=== PATIENT | male | born 1945 | race Caucasian/White ===

== ENCOUNTER → 2017-11-04 12:53 | Outpatient (CLI) | payer OTHER, SELFPAY ==
--- NOTE | 2017-11-05 08:23 | PFT ---
INTRODUCTION: The patient is a 72-year-old male currently under the care of Jose Alford NP that presents for pulmonary function testing secondary to a diagnosis of long-term amiodarone use. Respiratory therapy reports good patient effort and reports no other concerns. Bronchodilators were used during testing. INTERPRETATION: Forced expiration spirometry demonstrates the presence of a moderate large airways obstructive ventilatory defect. There was no significant response to aerosolized bronchodilators, based upon strict ATS criteria. Spirograms are of good quality and do not plateau indicating slow emptying of the lungs. The respiratory flow volume loop reveals decreased expiratory flow rates at all lung volumes consistent with airways obstruction. Body plethysmography was performed and reveals lung volumes to be within normal limits. Diffusing capacity by single breath CO is at the lower limits of normal at 77% of predicted. IMPRESSION: These pulmonary function studies demonstrate the presence of an irreversible moderate large airways obstructive ventilatory defect. Diffusing capacity is currently at the lower limits of normal. There are no previous pulmonary function studies available for comparison.
== END ==
PROVIDERS: Visit Provider Nurse Practitioner Family
DX: Z79.899 Other long term (current) drug therapy (principal); E78.2 Mixed hyperlipidemia; I48.1 Persistent atrial fibrillation; I10 Essential (primary) hypertension; E66.9 Obesity, unspecified
CPT/HCPCS: 94060; 94726; 94729

== ENCOUNTER → 2018-01-21 11:09 | Outpatient (CLI) | payer OTHER, SELFPAY ==
[2018-01-21 12:51] LABS: AST(SGOT) 23 U/L (15-37); Alanine Aminotransfer ALT/SGPT 21 U/L (16-61); Albumin, Serum 3.4 g/dL (3.2-5.0); Alkaline Phosphatase 84 U/L (45-117); Bilirubin, Direct 0.13 mg/dL (0.00-0.30); Cholesterol 184 mg/dL (200); Globulin 4.4 g/dL (2.2-4.2); High Density Lipoprotein 48 mg/dL; Protein, Total 7.8 g/dL (6.4-8.2); T4 Total, Thyroxin 8.8 ug/dL (4.5-12.1); Thyroid Stim Hormone (TSH) 4.75 uIU/mL (0.358-3.74); Triglycerides 65 mg/dL; Very Low Density Lipoprotein 13 mg/dL (5-40)
== END ==
PROVIDERS: Visit Provider Nurse Practitioner Family
DX: Z79.899 Other long term (current) drug therapy (principal); E78.2 Mixed hyperlipidemia; I48.1 Persistent atrial fibrillation; I10 Essential (primary) hypertension; E66.9 Obesity, unspecified
CPT/HCPCS: 36415; 80061; 80076; 84436; 84443

== ENCOUNTER → 2018-12-06 13:57 | Outpatient (CLI) | payer OTHER, SELFPAY ==
[2018-12-06 13:03] VITALS: BMI 32.0
--- NOTE | 2018-12-06 14:04 | RAD_ITS ---
STUDY: X-RAY CHEST REASON FOR EXAM: Male, 73 years old. Shortness of breath, dyspnea. History of atrial fibrillation. TECHNIQUE: PA and lateral views of the chest. COMPARISON: PA and lateral chest x-ray March 30, 2017. FINDINGS: The small bilateral pleural effusions and probable concomitant minor subsegmental atelectasis in the lung bases on prior study have cleared. A pair of 1 cm nodular densities in the inferolateral left base on the frontal view are more conspicuous today. There is question of additional subcentimeter nodular densities in the inferolateral right base, projecting just above the anterior right seventh and eighth ribs on the frontal image. The heart size is upper normal. Normal mediastinum and basilio. Normal visualized pulmonary arteries. Normal visualized aortic arch and descending thoracic aorta. Normal visualized thoracic spine. There is healed fracture deformity of the lateral left fifth rib. A small to moderate size hiatal hernia within a gas fluid level is again seen in the retrocardiac soft tissues. RAD/Chest PA and Lateral IMPRESSION: 1. Interval clearing of bibasilar subsegmental airspace disease and very small pleural effusion since previous exam. 2. Two 1 cm nodular densities in the inferolateral left base are now more conspicuous, and there is question of 2 subcentimeter nodular densities in the inferolateral right base. One might consider further characterization with CT. 3. Stable retrocardiac hiatal hernia. Electronically Signed: Julius Crowder MD at 14:49 EST , Service support ,
[2018-12-06 16:42] LABS: AST(SGOT) 28 U/L (15-37); Alanine Aminotransfer ALT/SGPT 19 U/L (16-61); Albumin, Serum 3.4 g/dL (3.2-5.0); Alkaline Phosphatase 73 U/L (45-117); Anion Gap 9 (5-15); BUN 20 mg/dL (7-18); BUN/Creat Ratio 15.6 RATIO (10-20); Bilirubin, Direct 0.13 mg/dL (0.00-0.30); Calcium,Total 8.6 mg/dL (8.5-10.1); Chloride 104 mmol/L (98-107); Cholesterol 174 mg/dL (200); Creatinine, Serum 1.28 mg/dL (0.70-1.30); EST Glomerular Filtration Rate 58 mL/min (>60); Est Glom Filt Rate - Afr Amer 71 mL/min (>60); Globulin 4.3 g/dL (2.2-4.2); Glucose 96 mg/dL (74-106); High Density Lipoprotein 47 mg/dL; Potassium 4.7 mmol/L (3.5-5.1); Protein, Total 7.7 g/dL (6.4-8.2); Sodium Level 140 mmol/L (136-145); Triglycerides 117 mg/dL; Very Low Density Lipoprotein 23 mg/dL (5-40)
== END ==
PROVIDERS: Referring Provider Internal Medicine Cardiovascular Disease; Visit Provider Internal Medicine Cardiovascular Disease
DX: I48.1 Persistent atrial fibrillation (principal); E78.2 Mixed hyperlipidemia
CPT/HCPCS: 36415; 71046; 80048; 80061; 80076

== ENCOUNTER 2018-12-15 11:18 | Day surgery (SDC) | payer OTHER, SELFPAY ==
[2018-12-06 13:03] VITALS: BMI 32.0
[2018-12-15 12:47] LABS: Cholesterol 177 mg/dL (200); High Density Lipoprotein 48 mg/dL; Triglycerides 55 mg/dL; Very Low Density Lipoprotein 11 mg/dL (5-40)
--- NOTE | 2018-12-15 13:58 | PRO.PCM_ITS ---
Problem List (1) Pre-operative cardiovascular examination Status: Acute (2) History of cardioversion Status: Chronic Comment: 03/24/17 unsuccessful (3) History of left heart catheterization Status: Chronic Comment: Normal Coronary Arteries per cath, [facility] per Dr. Smith (4) Persistent atrial fibrillation Status: Chronic (5) Secondary pulmonary arterial hypertension Status: Chronic Comment: RVSP 44 mmhg per echo 02/23/2017 Procedure Report Date of Procedure: 12/15/18 DC cardioversion: Patient was brought to the [facility] holding area in the fasting state. The risks/benefits of the procedure were thoroughly explained to the patient and in formed consent was obtained. The patient been anticoagulated on Xarelto therapy for the past several weeks. Patient has an upcoming knee surgery and the goal was to get the patient back into normal rhythm so as to avoid prolonged anticoagulation prior to his knee surgery. The deferred later pads were placed in AP position. With the assistance of Dr. Leonidas Matos the patient was given 40 mg of IV propofol. Once adequate sedation was obtained the patient received a single 200 J biphasic synchronized shock which converted him from atrial fibrillation with slow ventricular response to sinus bradycardia. His sinus bradycardia remained durable, he spontaneously awoke, moves all 4 extremities and tolerated the procedure well. Conclusions: Successful amiodarone and beta-rodri assisted DC cardioversion with a single 200 J biphasic synchronized shock. The patient will continue amiodarone and beta-rodri going forward to preserve AV synchrony, and he may hold his anticoagulation per the surgeon's instructions. Would recommend restarting his anticoagulation once it is surgically permissible. Patient tolerated procedure well. No complications. Many thanks to Dr. Leonidas Matos.
--- NOTE | 2018-12-15 14:39 | PCM.OP.PRO ---
Procedure Report Date of Procedure: 12/15/18 CONSCIOUS SEDATION REPORT DATE OF SERVICE: December 15, 2018 BRIEF HISTORY OF PRESENT ILLNESS: The patient is a 73-year-old male, with a history as outlined below, who presented to [facility] for an elective outpatient cardioversion due to underlying atrial fibrillation. The patient's last surface echocardiogram revealed an ejection fraction of approximately 55%. He has no known history of obstructive sleep apnea, COPD or asthma. He did previously undergo a cardioversion in 2017. He denies ever having experienced any adverse reactions to anesthesia. PHYSICAL EXAMINATION: VITAL SIGNS: Reviewed and were acceptable. GENERAL: The patient is an obese male, in no apparent distress, speaking in full sentences. HEENT: Normocephalic, atraumatic. Mucous membranes are moist and pink. Good mouth opening noted. Trachea is midline. CHEST: S1, S2 irregularly irregular. No murmurs, rubs or gallops were noted. LUNGS: Clear to auscultation bilaterally without appreciable wheezes, rales or rhonchi. ABDOMEN: Soft, nontender, nondistended. Positive bowel sounds. EXTREMITIES: There is no clubbing, cyanosis or edema. ASA Class: II DESCRIPTION OF PROCEDURE: After confirmation of informed consent, the patient's anesthesia plan was reviewed in detail. Propofol was chosen. Risks and benefits were reviewed and the patient agreed to proceed. At 1333, the patient was given 40 mg of propofol. The patient achieved an appropriate level of sedation and was given a 200 joule synchronized cardioversion by Dr. Smith at the bedside. This was successful in achieving normal sinus rhythm. The patient was monitored until 1341, at which time he reached his baseline mental status and function. The patient tolerated the procedure well. COMPLICATIONS: None ESTIMATED BLOOD LOSS: None RECOMMENDATIONS: Okay to recover in usual fashion. Code Visit 9xxxx: Other Procedure See Report - [id number]
== END 2018-12-15 14:47 | disposition home or self-care (01) ==
PROVIDERS: Referring Provider Internal Medicine Cardiovascular Disease; Visit Provider Internal Medicine Cardiovascular Disease
DX: I48.1 Persistent atrial fibrillation (principal); E78.2 Mixed hyperlipidemia; I10 Essential (primary) hypertension; I36.1 Nonrheumatic tricuspid (valve) insufficiency; I34.0 Nonrheumatic mitral (valve) insufficiency; I27.21 Secondary pulmonary arterial hypertension; E66.9 Obesity, unspecified; Z68.32 Body mass index [BMI] 32.0-32.9, adult; Z79.82 Long term (current) use of aspirin; Z79.899 Other long term (current) drug therapy
CPT/HCPCS: 36415; 80061; 92960; 93005; J7040

== ENCOUNTER → 2018-12-21 14:12 | Outpatient (CLI) | payer OTHER, SELFPAY ==
[2018-12-06 13:03] VITALS: BMI 32.0
--- NOTE | 2018-12-21 14:15 | CT_ITS ---
STUDY: CT CHEST WITH CONTRAST REASON FOR EXAM: Male, 73 years old. Lung nodule seen on pre-op RADIATION DOSAGE (If Supplied By Facility): CTDIvol = ( 15.97 ) mGy, DLP = ( 677.72 ) mGycm TECHNIQUE: Transaxial imaging was performed following intravenous administration of Isovue 370 100mL IV. Individualized dose optimization techniques were used for this CT. COMPARISON: Chest x-ray 12/06/2018. FINDINGS: There is hyperinflation of the lungs consistent with chronic obstructive lung disease (COPD). There is confirmation of several small nodules. On the right, an oblong noncalcified 1 cm nodule is seen on axial image 65, related to the minor fissure. On the left, there is a 4 mm nodule in the lateral aspect of the lingula on image 76. There is an 8 mm nodule in the periphery of the lingula on axial image 79. There is a partially calcified 9 mm nodule in the lateral basal segment of the left lower lobe on axial image 84. There is a 3 mm pleural-based nodule in the lingula on axial image 85. There is a 5 mm nodule related to the major fissure in the left lower lobe on image 87. Streaky densities consistent with scarring and/or subsegmental atelectasis is seen in the posterior aspects of both lower lobes, right worse than left. Bilateral small pleural effusions are seen. Heart size normal. Pulmonary arteries and aorta are unremarkable for age. No gross mediastinal mass or adenopathy. Moderate hilar hernia. Limited views through the upper abdomen show no gross acute abnormalities. Skeletal structures show no significant abnormalities. CT/Chest WITH Contrast IMPRESSION: There is confirmation of several bibasilar pulmonary nodules especially on the left, most of which are not calcified. These are indeterminate and recommend follow-up in 6 months. Mild fibrotic changes or subsegmental atelectasis with small effusion in both lung bases. Probable COPD. Electronically Signed: Ham Hernandez MD at 11:23 EDT , Service support ,
== END ==
PROVIDERS: Referring Provider Internal Medicine Cardiovascular Disease; Visit Provider Internal Medicine Cardiovascular Disease
DX: R91.1 Solitary pulmonary nodule (principal); R91.8 Other nonspecific abnormal finding of lung field
CPT/HCPCS: 71260; Q9967

== ENCOUNTER → 2019-08-05 12:36 | Outpatient (CLI) | payer MEDICARE, OTHER, SELFPAY ==
[2019-07-18 13:01] VITALS: BMI 30.7
--- NOTE | 2019-08-05 12:39 | ECHOD_ITS ---
Reason For Study: Afib/Flutter Procedure This was a 2D Doppler, Color Flow transthoracic echocardiogram. Exam performed in department. Left Ventricle Normal size and thickness. The estimated ejection fraction is 65 %. Stage 2 diastolic dysfunction. No regional wall motion abnormalities noted. Right Ventricle Mildly dilated right ventricle. Normal systolic function. Atria The left atrium is moderately enlarged. The right atrium is moderately enlarged. Normal atrial septum. Mitral Valve The mitral valve is structurally normal. No prolapse or stenosis seen. Tricuspid Valve Normal tricuspid valve. Trivial tricuspid valve insufficiency. Right ventricular systolic pressure estimated to be 31 mmHg. Aortic Valve Trisinus/trileaflet aortic valve. Mild focal aortic valve thickening. There is no aortic stenosis. Trivial aortic valve insufficiency. Pulmonic Valve Normal pulmonic valve. Great Vessels Normal aortic root. Normal arch. Normal inferior vena cava. Inferior vena cava collapse with sniff. Pericardium/Pleural No pericardial effusion. MMode/2D Measurements & Calculations LVIDd: 5.2 cm IVSd: 1.2 cm Ao root diam: 3.7 cm LVIDs: 3.0 cm LVPWd: 1.2 cm RVDd: 4.3 cm FS: 42.6 % LAV(MOD-bp): 96.5 ml LA A4 area: 28.4 cm2 RA A4 area: 23.8 cm2 LAV(MOD-bp) Indexed: 47.7 ml/m2 LAV(MOD-sp2): 90.4 ml LAV(MOD-sp4): 99.5 ml Time Measurements MV dec time: 0.21 sec Doppler Measurements & Calculations MV E max raul: 77.7 cm/sec Lat Peak E' Raul: 7.9 cm/sec Med Peak E' Raul: 6.8 cm/sec MV A max raul: 57.7 cm/sec E/E' lat: 9.9 E/E' med: 11.4 MV E/A: 1.3 MV V2 max: 84.7 cm/sec MV P1/2t max raul: 86.7 cm/sec Ao V2 max: 141.6 cm/sec MV max P.9 mmHg MV P1/2t: 160.7 msec Ao max P.0 mmHg MV V2 mean: 45.2 cm/sec MV dec slope: 158.0 cm/sec2 Ao V2 mean: 86.7 cm/sec MV mean P.93 mmHg MVA(P1/2t): 1.4 cm2 Ao mean P.5 mmHg MV V2 VTI: 40.0 cm Ao V2 VTI: 31.9 cm AI max raul: 431.8 cm/sec LV V1 max: 122.1 cm/sec MR max raul: 579.8 cm/sec AI max P.6 mmHg LV V1 max P.0 mmHg MR max P.5 mmHg LV V1 mean P.6 mmHg MR mean raul: 432.8 cm/sec AI dec slope: 110.0 cm/sec2 LV V1 mean: 73.1 cm/sec MR mean P.0 mmHg AI P1/2t: 1150 msec LV V1 VTI: 29.2 cm MR VTI: 229.9 cm PA V2 max: 102.1 cm/sec TR max raul: 230.0 cm/sec TR max P.2 mmHg Interpretation Summary The estimated ejection fraction is 65 %. Stage 2 diastolic dysfunction. Mildly dilated right ventricle. The left atrium is moderately enlarged. The right atrium is moderately enlarged. Trivial tricuspid valve insufficiency. Right ventricular systolic pressure estimated to be 31 mmHg. Trivial aortic valve insufficiency. Compared to echo report dated 02/23/2017, LV Function has improved from 55% to 65%, and RVSP has decreased from 44 to 31 mm Hg. Pt now appears to be in NSR. Ordering Physician: Ramone Smith Referring Physician: Nils Wick Performed By: Rikki Martinez RCS
== END ==
PROVIDERS: Referring Provider Internal Medicine Cardiovascular Disease; Visit Provider Internal Medicine Cardiovascular Disease
DX: I36.1 Nonrheumatic tricuspid (valve) insufficiency (principal)
CPT/HCPCS: 93306

== ENCOUNTER → 2020-01-26 09:32 | Outpatient (CLI) | payer MEDICARE, OTHER, SELFPAY ==
[2020-01-25 09:16] VITALS: BMI 29.5
[2020-01-26 10:54] LABS: AST(SGOT) 20 U/L (15-37); Alanine Aminotransfer ALT/SGPT 19 U/L (16-61); Albumin, Serum 3.3 g/dL (3.2-5.0); Alkaline Phosphatase 83 U/L (45-117); Bilirubin, Direct 0.17 mg/dL (0.00-0.30); Cholesterol 198 mg/dL (200); Globulin 4.5 g/dL (2.2-4.2); High Density Lipoprotein 57 mg/dL; Protein, Total 7.8 g/dL (6.4-8.2); T4 Total, Thyroxin 10.2 ug/dL (4.5-12.1); Thyroid Stim Hormone (TSH) 4.89 uIU/mL (0.358-3.74); Triglycerides 74 mg/dL; Very Low Density Lipoprotein 15 mg/dL (5-40)
== END ==
PROVIDERS: Referring Provider Internal Medicine Cardiovascular Disease; Visit Provider Internal Medicine Cardiovascular Disease
DX: E78.5 Hyperlipidemia, unspecified (principal); Z79.899 Other long term (current) drug therapy
CPT/HCPCS: 36415; 80061; 80076; 84436; 84443

== ENCOUNTER → 2020-08-09 07:53 | Outpatient (CLI) | payer MEDICARE, OTHER, SELFPAY ==
[2020-08-07 13:00] VITALS: BMI 30.4
[2020-08-09 08:51] LABS: AST(SGOT) 21 U/L (15-37); Alanine Aminotransfer ALT/SGPT 18 U/L (16-61); Albumin, Serum 3.2 g/dL (3.2-5.0); Alkaline Phosphatase 103 U/L (45-117); Bilirubin, Direct 0.15 mg/dL (0.00-0.30); Cholesterol 188 mg/dL (200); Globulin 4.8 g/dL (2.2-4.2); High Density Lipoprotein 56 mg/dL; T4 Total, Thyroxin 9.2 ug/dL (4.5-12.1); Thyroid Stim Hormone (TSH) 5.63 uIU/mL (0.358-3.74); Triglycerides 86 mg/dL; Very Low Density Lipoprotein 17 mg/dL (5-40)
--- NOTE | 2020-08-10 11:31 | PFT ---
INTRODUCTION: The patient is a 75-year-old male that presents for pulmonary function studies secondary to a diagnosis of high risk medication use. Respiratory therapy reports good patient effort. Bronchodilators were used during testing. INTERPRETATION: Forced expiration spirometry demonstrates the presence of a mild large airways obstructive ventilatory defect. There was no significant response to aerosolized bronchodilators. Spirograms are of good quality and do not plateau indicating slow emptying of the lungs. Body plethysmography was performed and reveals lung volumes to be within normal limits. Diffusing capacity by single breath CO is reduced at 62% of predicted. IMPRESSION: Irreversible mild large airways obstructive ventilatory defect with preserved lung volumes and symmetric reduction in diffusing capacity.
== END ==
PROVIDERS: Internal Medicine Cardiovascular Disease; Referring Provider Specialist; Visit Provider Specialist
DX: E78.00 Pure hypercholesterolemia, unspecified (principal); E78.5 Hyperlipidemia, unspecified; E03.9 Hypothyroidism, unspecified; Z79.899 Other long term (current) drug therapy
CPT/HCPCS: 80061; 80076; 84436; 84443; 94060; 94726; 94729

== ENCOUNTER 2020-08-22 09:39 | Observation (INO) | payer MEDICARE, OTHER, SELFPAY ==
[2020-01-25 09:16] VITALS: BMI 29.5
--- NOTE | 2020-08-01 21:47 | HP.PCM_ITS ---
History and Physical History and Physical [facility] Patient Name: Rehan Monae : 1945 From: RAFAEL VITAL PA-C DATE OF SURGERY: 08/22/2020 SCHEDULED PROCEDURE: left total hip arthroplasty HISTORY OF PRESENT ILLNESS: Preoperative history and physical exam was performed on August 01, 2020. This is a 75-year-old male who is been having ongoing pain in his left hip since for several months. Patient states his pain can reach 5/10 with activities. His pain is dull, sharp, stabbing. Pain is increased with going up and down stairs, sitting. Pain does waken him at night occasionally. Pain is over the lateral hip and left groin. Patient has difficulty with activities of daily living including golf, housework, shopping. He has difficult time putting on socks and getting dressed. Patient has tried rest, elevation with minimal relief. He has tried home exercises with minimal relief. He denies previous surgery on the left hip. Currently denies chest pain, shortness of breath, fevers chills, or recent infections. Patient has medical history pertinent for atrial fibrillation in which he he has had previous cardioversions. Patient had previous cardioversion on December 15, 2018. Patient currently takes Rivaroxaban. He is followed by retina subspecialist at [facility]. Clearance sent to Dr. Vasquez. After failing conservative measures and discussing treatment options Dr. Medardo Banda, the patient does wish to proceed with a left total hip arthroplasty. We will follow cardiology's plan for discontinuing anticoagulation prior to surgery. REVIEW OF SYSTEMS: ROS: Const: Denies change in appetite, fever and weight change. CV: Denies chest pain, heart murmur and irregular heartbeat. Resp: Denies cough, pneumonia, shortness of breath, tuberculosis and wheezing. GI: Denies constipation, diarrhea, heartburn, nausea, rectal itching, bloody stools and vomiting. : Denies incontinence. Musculo: Reports leg swelling, but denies pain, trouble walking and weakness. Skin: Denies Raynaud's, history of shingles and tattoo. Neuro: Denies ambulatory dysfunction, dizziness, numbness/tingling and tremor. Psych: Denies anxiety, insomnia and stress. Rolando/Lymph: Reports bleeding/bruising tendency, but denies anemia and past transfusion. Reviewed, no changes. PAST MEDICAL HISTORY: Advance Care Plan: Other Directive, living will Effective Date: 07/12/2020 PMH: Medical Problems: Arthritis, A-fib Accidents: None Surgical Hx: Knee Replacement RT - (01/04/2019) SAW Anesthesia Complications: None Assistive Devices: Glasses, Dentures Reviewed, no changes. SOCIAL HISTORY: SH: Marital: .Occupation: Retired.Work Status: Retired.Hand Dominance: Right- handed. Personal Habits: Cigarette Use: Never Smoked Cigarettes.Smokeless Tobacco: Never Used Smokeless Tobacco.E-Cigarette Use: Never used.Alcohol: Denies use.Drug Use: Denies Use.Enjoy Exercising: Never Exercises. Reviewed, no changes. VITALS: Ht: 67 Wt: 202lb Wt k.627 BMI: 31.6 BP: 122/62 Pulse: 68 Resp: 16 T: 95.2 T: 35.1C ALLERGIES: No Known Drug Allergy MEDICATIONS: Xarelto 20 mg 1po qday, Amiodarone HCL 200 mg 1 tab PO daily, Losartan Potassium 25 mg 1 by mouth every day PRE-OP EXAM: General appearance:NORMAL Other: Eyes: Conjunctivae and lids: NORMAL Pupils: ERR Ears, Nose, Mouth, and Throat: NORMAL Other: Inspection of lips, teeth and gums: NORMAL Other: Neck: Examination of neck: no masses noted. Respiratory: Assessment of respiratory effort: NORMAL Other: Auscultation of lungs: clear to auscultation no wheezes, rhonchi or rales. Cardiovascular: Auscultation of heart: regular rate and rhythm, no murmurs, gallops or rubs. Exam of carotid arteries: NORMAL Other: Gastrointestinal: Exam of abdomen: soft, nontender, nondistended bowel sounds present. PHYSICAL EXAMINATION: Patient does walk with an antalgic gait. Left hip has tenderness to palpation over the lateral hip at the greater trochanteric region. Range of motion left hip: 80 flexion, internal rotation neutral, external rotation 10. Pain is increased with range of motion left hip. Patient has 2 mm left leg shorter than the right. Patient currently neurovascularly intact. Sensation intact to light touch. IMAGING STUDIES: Previous x-rays a left hip reveal narrowing of the joint space, subchondral sclerosis, osteophyte formation consistent with severe stage IV osteoarthritis. There is a short varus neck. IMPRESSION: 1. Left hip osteoarthritis 2. History of atrial fibrillation: Currently on Rivaroxaban PLAN: Dr. Medardo Banda did discuss and review with the patient all treatment options including surgical versus nonsurgical options. Patient does wish to proceed with the above-stated procedure. Potential risks, benefits, and complications of the procedure were discussed in detail including but not limited to , infection, nerve and blood vessel damage, persistent pain, numbness, tingling, paresthesias, blood clot, pulmonary embolism, and requirement for possible further surgery. The patient expressed full understanding and has no further questions for the doctor. Patient does agree to proceed with the above-stated procedure and has signed the surgery consent form. We discussed the current risks associated with COVID 19. This does include the risk of exposure while in the hospital. Patient was reassured local hospitals have low infection rates and are taking all necessary precautions to avoid exposure to patients. In addition, we discussed strategies that can be used to help limit exposure including those that limit the patient's time in the hospital. Also using strategies to limit the patient's need for continued inpatient services after being discharged from the hospital. Patient was notified that we will need to comply with any screening or testing the hospital wishes to perform or that surgery may be delayed for any positive results. This dictation was created using voice recognition software. Phonetic and/or grammatical errors may exist. ___ I have re-examined the patient. There are no clinical changes since date of exam. ___ See progress notes for changes. ___ Dictated on admission Date: Time: Signature:
[2020-08-07 13:00] VITALS: BMI 30.4
[2020-08-09 08:19] LABS: Basophil# 0.03 X10^3/uL; Basophil% 0.5 % (0-1); Hematocrit 37.5 % (40-54); Hemoglobin 11.8 g/dL (13.0-16.5); Mean Corp Hgb Conc 31.5 g/dL (32-36); Mean Corpuscular Hgb 30.7 pg (27.0-32.0); Mean Corpuscular Volume 97.7 fL (80-94); Mean Platelet Vol. 9.9 fl (6.2-12.0); Monocyte# 0.64 X10^3/uL; Monocyte% 9.6 % (0-10); NRBC Flagged by Analyzer 0 % (0-5); Neutrophil # 4.95 X10^3/uL (2.7-7.7); Neutrophil % 74.3 % (47-70); Platelet Count 209 K/mm3 (150-450); RBC Distribution Width CV 13.1 % (11.6-14.6); RBC Distribution Width SD 47.4 fl (35.1-43.9); Red Blood Count 3.84 M/mm3 (4.6-6.2); White Blood Count 6.7 K/mm3 (4.4-11.0)
[2020-08-09 08:36] LABS: Anion Gap 4 (5-15); BUN 26 mg/dL (7-18); BUN/Creat Ratio 18.1 RATIO (10-20); Calcium,Total 8.6 mg/dL (8.5-10.1); Chloride 108 mmol/L (98-107); Creatinine, Serum 1.44 mg/dL (0.70-1.30); EST Glomerular Filtration Rate 51 mL/min (>60); Est Glom Filt Rate - Afr Amer 61 mL/min (>60); Glucose 91 mg/dL (74-106); Potassium 4.3 mmol/L (3.5-5.1); Sodium Level 140 mmol/L (136-145)
[2020-08-09 08:37] LABS: Magnesium 2.3 mg/dL (1.6-2.6)
--- NOTE | 2020-08-21 08:12 | EKG12_ITS ---
Test Reason : PRE OP Blood Pressure : / mmHG Vent. Rate : 055 BPM Atrial Rate : 055 BPM P-R Int : 198 ms QRS Dur : 090 ms QT Int : 434 ms P-R-T Axes : 048 028 018 degrees QTc Int : 415 ms Sinus bradycardia Otherwise normal ECG Confirmed by STEW GARCIA, JESSICA ([id number]), greeting card editor ILAN THAKUR ([id number]) on 08/22/2020 1:50:04 PM Referred By: Medardo Banda Confirmed By:JESSICA MATHIAS MD
[2020-08-22] VITALS (10 sets, daily range): BP systolic 116–151; BP diastolic 60–74; PULSE 50–65; RESP 16–18; TEMP 36.2–37.1; O2SAT 93–97; BMI 30.9; BMI 31.7
[2020-08-22] MEDS: Scopolamine 1mg/72hr Patch 1 PATCH TD (07:15)
[2020-08-22] MEDS: Acetaminophen 500 MG Tablet 1000 MG PO ×3 (07:20→21:17)
[2020-08-22] MEDS: Gabapentin 600 MG Tablet PO (07:21)
[2020-08-22] MEDS: Lactated Ringers 1,000 ML 999 ML IV ×2 (07:21→09:46)
[2020-08-22 07:45] LABS: Bedside Glucose 90 mg/dL (70-110)
[2020-08-22] MEDS: Cefazolin 2 GM in 0.9% Normal Saline 100 ML IV (07:51)
--- NOTE | 2020-08-22 08:30 | RAD_ITS ---
STUDY: X-RAY - PELVIS AND LEFT HIP REASON FOR EXAM: Left hip arthroplasty. TECHNIQUE: 4 intraoperative images of the pelvis and hip. COMPARISON: None. FINDINGS: There is a left hip arthroplasty without evidence of complication. Electronically Signed: Ata Bocanegra MD at 11:09 EST Tel , Service support , RAD/Hip 1 view with Pelvis
--- NOTE | 2020-08-22 09:11 | OP.PCM_ITS ---
Report of Operation Date of Procedure: 08/22/20 Pre-Operative Diagnosis: Left hip primary osteoarthritis Post-Operative Diagnosis: Left hip primary osteoarthritis Surgery/Procedure Performed:: Left minimally invasive direct anterior total replacement Description of Surgical Findings:: Stable hip with equal leg lengths trim stencil maker: Bro Kaur Type of Anesthesia:: Spinal Anesthesiologist: Stan Gonzalez Special Medications: 2 g Ancef, 1 g TXA at incision, 1 g TXA closure, 10 mg Decadron, joint cocktail (5 mg Duramorph, 30 mL of 0.5% Ropivicaine, 1000 units of epinephrine, 30 mg of Toradol) Specimen's removed: Bony cuts Estimated Blood Loss (mL): 150 Fluids Replaced: 1000 mL crystalloid Description of Procedure: Components used: 1. Accolade 2 Saumya femoral stem size 5 127? 2. Saumya trident 2 acetabular shell size 56 mm 3. Saumya X3 polyethylene F 4. Saumya Biolox delta 36mm, -5mm femoral head Brief history operative indications: 75 yo M who failed conservative measures for their hip osteoarthritis. X-rays were consistent with osteoarthritis including joint space narrowing, osteophyte formation and subchondral cysts. Total hip replacement was discussed with the patient with risks and benefits including but not limited to blood loss, DVTs, PEs, neurovascular damage, dislocation, general risks of anesthesia including loss of life. Patient demonstrated an understanding medical clearance is obtained the patient was consented for surgery. Procedure: On the date of procedure the patient's L hip was marked in the preoperative area. Patient was then taken back to the operating room where anesthesia assumed control of the C-spine and airway and administered anesthetic. Patient was transferred to the operating table and placed in the supine position. The hips were placed at the break of the bed and a sacral bump was placed. The L lower extremity was then prepped out in a sterile fashion using chlorhexidine while the surgeon scrubbed. The PA was vital in the positioning of the patient. Upon reentering the room the L lower extremity was draped in the standard orthopedic fashion and the incision was marked. A timeout was called and everyone agreed upon the side, the site, the procedure be performed, antibody given, and patient's identity. At this time incision was made through skin, subcutaneous tissue, and fat down to fascia. The fascia was then incised and the TFL was retracted laterally. A retractor was placed on the lateral border of the femoral neck. Attention was directed to the inferior portion of the approach and all crossing vessels were identified and appropriately coagulated. A retractor was then placed on the medial portion of the femoral neck. The anterior capsule was then cleared of all soft tissue and then H shaped capsulotomy was made. The retractors were then placed inside the capsule. The femoral neck was identified and a cleanup cut was made. At this time a power corkscrew was used to remove the femoral head. Attention was then turned toward the acetabulum where the soft tissues were appropriately retracted and the acetabulum was sequentially reamed to 56 mm. A 56 mm cup was then selected and impacted into place. Acetabular liner was impacted into place and locking mechanism was verified. The position of the acetabular cup was then verified under live fluoroscopy. Attention was then turned to the femur. Soft tissue releases on the medial and lateral femoral neck were appropriately done, the leg was externally rotated and lateralized. A Stiles retractor was placed medially and proximally to the greater trochanter this allowed appropriate visualization and exposure of the femoral canal. Rongeour was then used to remove excess lateral bone. A canal finder and entry broach were used to open the proximal canal. Once we verified we were down the femoral canal we subsequently broached up to a size 5 femur. The appropriate neck was placed in the previously selected head was trialed with a -5 mm neck. Traction was pulled and the hip was reduced with internal rotation. Once it was appropriately reduced and stability was checked. There was minimal shuck, equal leg lengths and appropriate stability with hyperextension and external rotation as well as with 90? flexion and internal rotation. Fluoroscopy was then also used to verify the position of the components and leg lengths using the contralateral side for comparison. The trial components were then dislocated the proximal femur was again exposed and the components were removed from the wound. The final components were verified and opened. The wound was copiously irrigated out with normal saline. The acetabulum was checked for any residual debris. The final components were placed and impacted. Traction and internal rotation were again used to reduce the hip. After adequate reduction the hip remained stable with appropriate leg lengths. The final components were once again checked with live fluoroscopy and were found to be satisfactory. The wound was then copiously irrigated with normal saline once more, and hemostasis was obtained. Closure was then done using #1 Vicryl runner to close the fascia. A 2-0 vicryl interuppted sutures were used to close the subcutaneous skin. A 3-0 Monocryl and Steri-Strips were used for final skin closure. A Silverlon dressing was placed. Patient was awakened by anesthesia and transferred to the [facility]. Pat ient was then transferred to the PACU for recovery. Postoperative plan: Patient will get 24 hours postop antibiotics. Patient will get in-house physical therapy and will be weight-bear as tolerated. Patient will follow up in office in 2 weeks for a wound check and x-rays. Aspirin 81 mg twice daily. - Complications No intraoperative complications - Admit VTE Documentation VTE Present on Admission: No VTE Mechan Device Prophylaxis: SCD's, Thigh High VINI Hose VTE Pharm Prophylaxis ordered?: Yes
--- NOTE | 2020-08-22 09:54 | RAD_ITS ---
STUDY: X-RAY - PELVIS AND LEFT HIP REASON FOR EXAM: Postop left hip arthroplasty. TECHNIQUE: 2 views of the pelvis and hip. COMPARISON: None. FINDINGS: There is postoperative gas in the soft tissues. Normal bilateral superior and inferior pubic rami. There are minor degenerative changes of the pubic symphysis. Normal bilateral ischial tuberosities. There is a left hip arthroplasty without evidence of complication. RAD/Hip Min 2 Views (Portable) IMPRESSION: Uncomplicated left hip arthroplasty. Electronically Signed: Ata Bocanegra MD at 10:48 EST Tel , Service support ,
[2020-08-22] MEDS: Lactated Ringers 1,000 ML 125 ML IV ×2 (10:40→11:13)
[2020-08-22] MEDS: Amiodarone 200 MG Tablet PO (11:49)
[2020-08-22] MEDS: Losartan Potassium 25 MG Tablet PO (11:49)
[2020-08-22] MEDS: Famotidine 20 MG Tablet PO (11:49)
[2020-08-22] MEDS: Ensure Surgery 237 ML LIQUID PO ×2 (11:52→18:10)
[2020-08-22] MEDS: Cefazolin 1 GM/50 ML BAG IV (15:22)
[2020-08-22] MEDS: Senna/Docusate Sodium 1 Tablet 2 TABLET PO (21:17)
[2020-08-23] MEDS: Cefazolin 1 GM/50 ML BAG IV (00:10)
[2020-08-23 03:15] VITALS: BP 144/76; PULSE 53; RESP 18; TEMP 36.6; O2SAT 98
[2020-08-23] MEDS: Acetaminophen 500 MG Tablet 1000 MG PO (05:00)
[2020-08-23 06:03] LABS: Hematocrit 30.6 % (40-54); Hemoglobin 9.9 g/dL (13.0-16.5); Mean Corp Hgb Conc 32.4 g/dL (32-36); Mean Corpuscular Hgb 31.7 pg (27.0-32.0); Mean Corpuscular Volume 98.1 fL (80-94); Mean Platelet Vol. 10.3 fl (6.2-12.0); Platelet Count 218 K/mm3 (150-450); RBC Distribution Width CV 13.2 % (11.6-14.6); RBC Distribution Width SD 46.4 fl (35.1-43.9); Red Blood Count 3.12 M/mm3 (4.6-6.2); White Blood Count 15.7 K/mm3 (4.4-11.0)
[2020-08-23 06:24] LABS: Anion Gap 6 (5-15); BUN 36 mg/dL (7-18); BUN/Creat Ratio 16.2 RATIO (10-20); Calcium,Total 8.3 mg/dL (8.5-10.1); Chloride 100 mmol/L (98-107); Creatinine, Serum 2.22 mg/dL (0.70-1.30); EST Glomerular Filtration Rate 31 mL/min (>60); Est Glom Filt Rate - Afr Amer 37 mL/min (>60); Estimated Creatinine Clearance 27.39 ml/min; Glucose 116 mg/dL (74-106); Potassium 5.2 mmol/L (3.5-5.1); Sodium Level 132 mmol/L (136-145)
[2020-08-23] MEDS: Rivaroxaban 20 MG Tablet PO (08:25)
[2020-08-23] MEDS: Losartan Potassium 25 MG Tablet PO (08:26)
[2020-08-23] MEDS: Amiodarone 200 MG Tablet PO (08:26)
[2020-08-23] MEDS: Famotidine 20 MG Tablet PO (08:26)
[2020-08-23 08:30] VITALS: BP 115/51; PULSE 53; RESP 18; TEMP 36.6; O2SAT 99
--- NOTE | 2020-08-23 09:12 | PCM.PN.ORT ---
Subjective: The patient was sitting in bedside chair upon examination. Patient denies any chest pain, shortness of breath, dizziness, lightheadedness, nausea or vomiting, or calf pain. Pain is controlled on medications. No adverse overnight events. Overall patient is doing well and is only required Tylenol. I did make adjustments to pain medications as he did have difficulty with oxycodone with hallucinations. Objective: Vital signs stable and afebrile. Patient is able to plantarflex and dorsiflex actively. Sensation is intact to light touch to saphenous, sural, superficial and deep peroneal, and tibial distribution. Dressing is clean dry and intact. Negative Homans bilaterally, negative signs and symptoms of DVT. - Physical Exam Vitals/I&O's: Vital Signs Temp Pulse Resp BP Pulse Ox 97.9 F 53 L 18 144/76 H 98 08/23/20 03:15 08/23/20 03:15 08/23/20 03:15 08/23/20 03:15 08/23/20 03:15 Oxygen Flow Rate (L/min) 6 Oxygen Delivery Method Room Air Weight: 95.1 kg Body Mass Index (BMI) 31.7 Intake and Output for Last 24 Hours 08/21/20 08/22/20 08/23/20 23:59 23:59 23:59 Intake Total 2804.25 / 3004.25 1650 / 1650 Balance 2804.25 / 3004.25 1650 / 1650 General: Alert, Oriented x3, Cooperative, No apparent distress Microbiology Past 72 Hours 08/21/20 08:45 Interface Orders SARS-CoV-2 Antigen (Rapid) - Final Laboratory Results 08/23/20 05:15: WBC 15.7 H, RBC 3.12 L, Hgb 9.9 L, Hct 30.6 L, MCV 98.1 H, MCH 31.7, MCHC 32.4, RDW Std Deviation 46.4 H, RDW Coeff of Luisa 13.2, Plt Count 218, MPV 10.3 08/23/20 05:15: Sodium 132 L, Potassium 5.2 H, Chloride 100, Carbon Dioxide 26.0, Anion Gap 6, BUN 36 H, Creatinine 2.22 H, Estim Creat Clear Calc 27.39, Est GFR (MDRD) Af Amer 37 L, Est GFR (MDRD) Non-Af 31 L, BUN/Creatinine Ratio 16.2, Glucose 116 H, Calcium 8.3 L Current Medications Acetaminophen (Acetaminophen 500 Mg Tablet) 1,000 mg PO Q8 [facility] Last Admin: 08/23/20 05:00 Dose: 1,000 mg Documented by: Amiodarone HCl (Amiodarone 200 Mg Tablet) 200 mg PO DAILY [facility] Last Admin: 08/23/20 08:26 Dose: 200 mg Documented by: Cholecalciferol (Cholecalciferol (Vit D3) 1,000 Unit (25mcg)) 1,000 unit PO DAILY [facility] Last Admin: 08/23/20 08:26 Dose: 1,000 unit Documented by: Enteral Nutritional Formula (Ensure Surgery 237 Ml Liquid) 237 ml PO TIDCM [facility] Last Admin: 08/23/20 08:27 Dose: Not Given Documented by: Famotidine (Famotidine 20 Mg Tablet) 20 mg PO DAILY [facility] Last Admin: 08/23/20 08:26 Dose: 20 mg Documented by: Ketorolac Tromethamine (Ketorolac 15 Mg/Ml Vial) 15 mg IV Q6H PRN PRN PRN Reason: Pain Score 1-5 Stop: 08/24/20 07:05 Losartan Potassium (Losartan Potassium 25 Mg Tablet) 25 mg PO DAILY [facility] Last Admin: 08/23/20 08:26 Dose: 25 mg Documented by: Morphine Sulfate (Morphine 2 Mg/Ml Syringe) 2 - 4 mg IV Q2H PRN PRN PRN Reason: Pain Score 4-10 Ondansetron HCl (Ondansetron 4 Mg/2 Ml Vial) 4 mg IV Q8H PRN PRN PRN Reason: NAUSEA Promethazine HCl (Promethazine 25 Mg/Ml Syringe) 12.5 mg IM Q6H PRN PRN; Protocol PRN Reason: NAUSEA/VOMITING Rivaroxaban ([facility] 20 Mg Tablet) [facility] Last Admin: 08/23/20 08:25 Dose: 20 mg Documented by: Senna/Docusate Sodium (Senna/Docusate Sodium 1 Tablet) 2 tablet PO BID [facility] Last Admin: 08/23/20 08:27 Dose: Not Given Documented by: Sodium Chloride (0.9% Saline Lock 10 Ml Syringe) 10 - 40 ml IV UD PRN PRN Reason: SALINE FLUSH Medical Necessity - Tobacco Use Smoking Status: Never smoker Tobacco Use: Non-smoker Assessment/Plan All Active Problems (Last Reviewed 08/07/20 @ 13:[address] Thomas Vasquez MD) Atrial fibrillation (Acute) Pre-operative cardiovascular examination (Acute) 1. S/P left direct anterior total hip arthroplasty POD #1 2. Continue Pain Medications: Tylenol and tramadol only for breakthrough pain. Oxycodone was discontinued as he had hallucinations in the past surgeries. 3. DVT Prophylaxis: Patient has been placed back on his Xarelto that he was taking preoperatively 4. PT/OT: Weightbearing as tolerated 5. H & H: 9.9/30.6, asymptomatic. Postoperative anemia secondary to acute blood loss from surgery without any intraoperative complications 6. Reactive leukocytosis: Currently 15.7, afebrile. 7. Encouraged Incentive Spirometry 8. Disposition: Orthopedically stable, plan will be for discharge home today as long as patient tolerates physical therapy and pain is well controlled. Prescription will be attached to chart for the tramadol. Patient will follow-up per postop instructions. I have reviewed the [place] Automated Rx Reporting System (OARRS) report for this patient for refill pattern and other prescriber involvement as part of the appropriate surveillance for the provision of acute and chronic controlled medications. The report was requested and reviewed on the date of this entry and was considered in the prescribing process.
--- NOTE | 2020-08-23 09:18 | DCINST_ITS ---
Discharge Diet: No Restrictions Discharge Activity: May Not Drive - while taking narcotic pain medications. May shower in (days): 1 - Dressing must be intact to skin. Turn dressing away from water Ice area for (Minutes): 20 - Every 1-2 hours while awake Weight Bearing Status: Weight bearing as tolerated Elevate: Operative Extremity Additional Activity Instructions:: Wear elastic stockings for 2 weeks. DO NOT use alcohol with narcotic pain medication. DO NOT make important decisions while taking narcotic medication. If you have problems with taking your medication (rash, itching, nausea, etc.) call the office at once. Call your doctor if your incision/area has: Increased Pain/ Swelling, Increased Redness, Foul Smelling Discharge Call your doctor if you observe: Fever of 101 or Higher Remove Dressing in (days):: 4 - Okay to remove dressing on August 27, 2020 Additional Instructions: Follow orthopedic postop instructions Allergies/Adverse Reactions: Allergies No Known Allergies Allergy (Verified 08/22/20 06:49) Medications to take at Discharge Cholecalciferol (VIT D3) [Vitamin D3] 1,000 unit PO DAILY 08/07/20 Lactose-Reduced Food [Protein Nutritional Shake] 414 ml PO DAILY 08/07/20 amiodarone 200 mg tablet 200 mg PO DAILY #90 tab 08/07/20 [id number]-[id number]-mcjc tablet 1 tab PO DAILY tab 08/07/20 rivaroxaban 20 mg tablet 20 mg PO QDAY #90 tab 08/07/20 losartan 25 mg tablet 25 mg PO DAILY #90 tab 08/15/20 Acetaminophen [Tylenol] 1,000 mg PO Q8 #100 tab 08/23/20 Senna/Docusate Sodium [Senokot-S] 2 tab PO BID #14 tab 08/23/20 traMADol [Ultram] 50 - 100 mg PO Q6H PRN PRN 3 Days #24 tab 08/23/20 The following prescriptions were given: Senna/Docusate Sodium [Senokot-S] 2 tab PO BID #14 tab Transmission Status: Pending to [facility] Acetaminophen [Tylenol] 1,000 mg PO Q8 #100 tab Transmission Status: Pending to [facility] traMADol [Ultram] 50 - 100 mg PO Q6H PRN PRN 3 Days #24 tab PRN Reason: Pain Score 6-10 Prescription Printed Primary Care Physician: Nils Wick MD [Primary Care Provider] - Test Results: Test results from this visit will be discussed in further detail at your follow- up appointment, if applicable. Please Follow Up With: Oliver Eaton Physical therapy When: 08/27/20 @ 9:00 am Please Follow Up With: Marko Manriquez PA-C When: 09/05/20 @ 8:30 am
--- NOTE | 2020-08-23 09:50 | CASEMGMT ---
ALEXIA DEVLIN Face to Face with patient for initial transition planning/care coordination assessment. RN QUITA introduced self and role at [facility]. Patient sitting in chair, alert and oriented. Patient willing to participate in assessment and is able to answer all questions appropriately. Care providers, pharmacy, and demographics verified. Patient wishes to discharge home and is setup with [facility] in [place] for outpatient therapy. Patient states he has no further needs or concerns at this time. CM to follow for discharge planning needs that may arise. PCP: Shamika Specialists: sourav Banda; Christina weigh and charge worker Preferred Pharmacy: [facility] Insurance: [employer] Prescription Benefit: yes Living Will/HPOA: yes, Lindy Monae LNOK: Living Arrangements: Patient lives with in a 2 story home with bed and bath on first floor, no steps to enter the home. Patient states he is independent at home. Transportation: DME/HHC: Patient states he has cane, walker, raised toilet, and shower chair at home. Patient is scheduled for outpatient therapy at [facility] starting Thursday. Disposition Plan: Patient to discharge home with outpatient therapy, family support, and follow-up plans in place. Jana ALMARAZ, RN, CM
== END 2020-08-23 10:34 | disposition home or self-care (01) ==
LOC: SDC 09:39 → MS3 09:39
PROVIDERS: Anesthesiology; Admitting Provider Specialist; Referring Provider Specialist; Visit Provider Specialist
PROC: (CPT 27284; principal; 2020-08-22 08:05)
DX: M16.12 Unilateral primary osteoarthritis, left hip (principal); Z20.828 Contact with and (suspected) exposure to other viral communicable diseases; I48.91 Unspecified atrial fibrillation; Z79.899 Other long term (current) drug therapy; Z79.01 Long term (current) use of anticoagulants; R00.1 Bradycardia, unspecified
CPT/HCPCS: 01214; 27130; 36415; 73501; 73502; 76000; 80048; 82962; 83735; 85025; 85027; 87081; 87426; 93005; 96361; 96365; 96366; 97116; 97162; 97166; 97535; 99218; 99251; C1776; C9803; J7120; G0378; G0379; G0463; J2405

== ENCOUNTER → 2021-08-12 06:47 | Outpatient (CLI) | payer MEDICARE, OTHER, SELFPAY ==
[2021-08-12 10:32] LABS: AST(SGOT) 22 U/L (15-37); Alanine Aminotransfer ALT/SGPT 21 U/L (16-61); Albumin, Serum 3.2 g/dL (3.2-5.0); Alkaline Phosphatase 87 U/L (45-117); Bilirubin, Direct 0.15 mg/dL (0.00-0.30); Cholesterol 218 mg/dL (200); Globulin 4.8 g/dL (2.2-4.2); High Density Lipoprotein 53 mg/dL; T4 Free Direct 1.13 ng/dL (0.76-1.46); Thyroid Stim Hormone (TSH) 6.19 uIU/mL (0.358-3.74); Triglycerides 88 mg/dL; Very Low Density Lipoprotein 18 mg/dL (5-40)
--- NOTE | 2021-08-12 15:50 | PFTCOMP ---
COMPLETE PULMONARY FUNCTION TEST INTERPRETATION Brief HPI: Patient is a 76 year old male, currently under the care of Jose Alford, who presents to [facility] for complete pulmonary function tests secondary to diagnosis of high risk med use. Respiratory therapist reports good effort and reproducible results. Interpretation: Forced expiration spirometry shows a mild large airways obstructive ventilatory defect with an FEV1 of 79% predicted. There is no significant bronchodilator response by strict ATS criteria. Spirograms are of good quality and plateau slowly, indicating slowly emptying areas of the lungs. The respiratory flow volume loop shows decreased expiratory flow rates at all lung volumes consistent with airway obstruction. Lung volumes by body plethysmography show a normal total lung capacity at 6.75 L, 114% predicted. All other lung volumes are increased symmetrically. Diffusion capacity by carbon monoxide is normal at 87% predicted. The airway resistance is slightly elevated. Compared to previous pulmonary function tests from 11/04/2017, there has been significant worsening in air trapping. Impression: Irreversible mild large airways obstructive ventilatory defect with preserved diffusion capacity compared to previous.
== END ==
PROVIDERS: Referring Provider Nurse Practitioner Family; Visit Provider Nurse Practitioner Family
DX: E78.2 Mixed hyperlipidemia (principal); Z79.899 Other long term (current) drug therapy
CPT/HCPCS: 36415; 80061; 80076; 84439; 84443; 94060; 94726; 94729

== ENCOUNTER → 2022-08-14 | Outpatient (CLI) | payer MEDICARE, OTHER, SELFPAY ==
[2022-08-14 10:10] LABS: AST(SGOT) 23 U/L (15-37); Alanine Aminotransfer ALT/SGPT 20 U/L (16-61); Albumin, Serum 3.3 g/dL (3.2-5.0); Alkaline Phosphatase 44 U/L (45-117); Bilirubin, Direct 0.19 mg/dL (0.00-0.30); Cholesterol 146 mg/dL (200); Globulin 4.3 g/dL (2.2-4.2); High Density Lipoprotein 63 mg/dL; Protein, Total 7.6 g/dL (6.4-8.2); Triglycerides 71 mg/dL; Very Low Density Lipoprotein 14 mg/dL (5-40)
[2022-08-14 10:46] LABS: Thyroid Stim Hormone (TSH) 6.28 uIU/mL (0.358-3.74)
== END | disposition home or self-care (01) ==
LOC: LAB 08:46
PROVIDERS: PCP Family Medicine; Visit Provider Internal Medicine Cardiovascular Disease
DX: E78.2 Mixed hyperlipidemia (principal); Z79.899 Other long term (current) drug therapy
CPT/HCPCS: 36415; 80061; 80076; 84443

== ENCOUNTER → 2023-10-14 | Outpatient (CLI) | payer MEDICARE, OTHER, SELFPAY ==
--- NOTE | 2023-10-14 09:46 | RAD_ITS ---
STUDY: X-RAY CHEST REASON FOR EXAM: Male, 78 years old. History of atrial fibrillation on amiodarone. TECHNIQUE: Frontal and lateral views of the chest. COMPARISON: December 06, 2018. FINDINGS: Stable hyperinflation with scattered healed parenchymal granulomatous calcifications. Blunting of the right costophrenic angle representing pleural thickening/scarring or small pleural effusion. Stable cardiomegaly with aortic tortuosity and calcification. Normal mediastinum and basilio. Normal visualized pulmonary arteries. Normal visualized thoracic spine. Normal visualized ribs, clavicles, and shoulders. Hiatal hernia, relatively unchanged. RAD/Chest PA and Lateral IMPRESSION: Stable chest with no acute or active cardiopulmonary disease. Electronically Signed: Chucky Crespo MD at 10:32 EST ,
--- OUTSIDE RECORDS SUMMARY | 2023-10-14 10:32 | XMS RPT_ITS | CCD ---
Author Name Unknown Address [address] [place] [address] Organization [facility] Care Team Providers Care [place] Decorator Name Role Phone Berg Russ LOGAN Unavailable Unavailable IVORY FUCHS Attending Unavailable ROSIBEL COSTELLO Primary Care Unavailable IVORY FUCHS Attending Unavailable ROSIBEL COSTELLO Primary Care Unavailable IVORY FUCHS Admitting Unavailable MONA GAMEZ Unavailable IVORY FUCHS Attending Unavailable ROSIBEL COSTELLO Primary Care Unavailable ALEXIA Yoon, Pinky Peña Unavailable Unavailchandler Cottrell RN, Tory Best Unavailable Unavailable Juany Ray Unavailable Unavailable Roof ASSISTANT BROKER, Jose Salinas Unavailable Ronit HALE, Tory Best Unavailable Unavailable Ronit HALE, Tory A Unavailable Unavailable Carissa Montero Unavailable Unavailable Kylah Carissa M Unavailable Unavailable Kimmy Workman Unavailable Unavailable Medications Completed/Discontinued Medications Medication Drug Class(es) Dates Sig (Normalized) Sig (Original) amiodarone hydrochloride 200 mg oral tablet (10 sources) Antiarrhythmic Start: 03-30-2017 take 1 tablet by mouth once daily AMIODARONE HCL 200 MG TABS One tablet by mouth daily AMIODARONE HCL [id number] Ramone Smith MD Problems Active Problems Problem Classification Problem Date Documented Da te Episodic/Chronic Cardiac dysrhythmias (12 sources) Persistent atrial fibrillation; Translations: [Persistent atrial fibrillation] Onset: 03-04-2017 03-04-2017 Chronic Essential hypertension (12 sources) Hypertensive disorder; Translations: [Essential (primary) hypertension] Onset: 03-04-2017 03-04-2017 Chronic Other non-traumatic joint disorders (1 source) Hip pain; Translations: [Hip pain, left] Episodic Other nutritional; endocrine; and metabolic disorders (7 sources) Body mass index (BMI) 35.0-35.9, adult; Translations: [Body mass index (BMI) 35.0-35.9, adult] Onset: 03-30-2017 03-30-2017 Chronic Unclassified (12 sources) Drug therapy finding; Translations: [MCFP (current) use of anticoagulants] Onset: 03-04-2017 03-04-2017 Unclassified (9 sources) Long-term drug therapy; Translations: [Other chcf (current) drug therapy] Onset: 03-04-2017 03-04-2017 Past or Other Problems Problem Classification Problem Date Documented Da te Episodic/Chronic Other aftercare (3 sources) 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 scientist 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 therapy; Translations: [Other scientist 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 therapy] Onset: 03-04-2017 03-04-2017 Episodic Other lower respiratory disease (8 sources) Shortness of breath; Translations: [Dyspnea] Onset: 03-30-2017 03-30-2017 Episodic Residual codes; unclassified (8 sources) Edema of lower extremity; Translations: [Localized edema] Onset: 03-30-2017 03-30-2017 Episodic NEGATED: Highlighted row has not occurred!Residual codes; unclassified (3 sources) Disease Episodic Results Test Name Value Interpretation Reference Range Facil ity Vital Signs Date Time Vital Sign Value Performing Clinician iKm suarez 04-21-2017 13:05-0400 BMI (Body Mass Index) 33.96 kg/m2 [facility] Work Phone: 04-21-2017 13:05-0400 BP Diastolic 70 mm[Hg] [facility] Work Phone: 04-21-2017 13:05-0400 BP Systolic 150 mm[Hg] [facility] Work Phone: 04-21-2017 13:05-0400 Height 175.26 cm [facility] Work Phone: 04-21-2017 13:05-0400 Pulse (Heart Rate) 42 /min [facility] Work Phone: 04-21-2017 13:05-0400 Respiratory Rate 20 /min Carissa Kylah [facility] Work Phone: 04-21-2017 13:05-0400 Weight 104.33 kg Carissa Kylah [facility] Work Phone: 04-21-2017 13:01-0400 Heart rate 42 /min Carissa Kylah [facility] Work Phone: 03-30-2017 12:17-0400 BMI (Body Mass Index) 34.18 kg/m2 Jose Rocío ASSISTANT BROKER [facility] Work Phone: 03-30-2017 12:17-0400 BP Diastolic 70 mm[Hg] Jose Alford ASSISTANT BROKER [facility] Work Phone: 03-30-2017 12:17-0400 BP Systolic 110 mm[Hg] Jose Rocío ASSISTANT BROKER [facility] Work Phone: 03-30-2017 12:17-0400 Height 175.26 cm Jose Rocío ASSISTANT BROKER [facility] Work Phone: 03-30-2017 12:17-0400 Pulse (Heart Rate) 73 /min Jose Rocío ASSISTANT BROKER [facility] Work Phone: 03-30-2017 12:17-0400 Respiratory Rate 2 /min Jose Rocío ASSISTANT BROKER [facility] Work Phone: 03-30-2017 12:17-0400 Weight 105.01 kg Jose Alford ASSISTANT BROKER [facility] Work Phone: 03-30-2017 11:37-0400 Heart rate 73 /min Juany Ray [facility] Work Phone: 03-04-2017 09:27-0400 Heart rate 78 /min Pinky Yoon RN [facility] Work Phone: Encounters Encounter Date Encounter Type Care Provider Facility Start: 09-05-2020 [facility] Work Phone: Start: 08-29-2020 Patient encounter procedure Kimmy Workman [facility] Work Phone: Start: 08-27-2020 Patient encounter procedure Kimmy Workman [facility] Work Phone: Start: 01-10-2019 Patient encounter procedure Facility:[id number] Start: 01-04-2019 End: 01-05-2019 Patient encounter procedure IVORY FUCHS Facility:B Start: 12-20-2018 Patient encounter procedure IVORY FUCHS Facility:B Start: 08-17-2018 Patient encounter procedure Facility:[id number] Procedures Date Procedure Procedure Detail Performing Clinician Start: 03-30-2017 End: 03-30-2017 Dietary management education, guidance, and counseling Jose Alford ASSISTANT BROKER Start: 03-30-2017 End: 03-30-2017 *CBC with Differential Ramone Smith MD Work Phone: Start: 03-30-2017 End: 03-30-2017 Chest x-ray Ramone Smith MD Work Phone: Start: 03-30-2017 End: 03-30-2017 Ecg routine ecg w/least 12 lds w/i&r Ramone Smith MD Work Phone: Start: 03-30-2017 End: 03-30-2017 Natriuretic peptide B [Mass/volume] in Blood Ramone Smith MD Work Phone: Start: 03-04-2017 End: 03-18-2017 *BMP Ramone Smith MD Work Phone: Start: 03-04-2017 End: 03-30-2017 Cardioversion Ramone Smith MD Work Phone: Start: 03-04-2017 End: 03-18-2017 CBC W Auto Differential panel - Blood Ramone Smith MD Work Phone: Start: 03-04-2017 End: 03-30-2017 Ecg routine ecg w/least 12 lds w/i&r Ramone Smith MD Work Phone: Plan of Treatment Date Care Activity Detail Author Start: 04-21-2017 End: 04-21-2017 Appointment Appointment [facility] Work Phone: Start: 04-21-2017 End: 04-21-2017 Appointment Appointment [facility] Work Phone: Start: 04-21-2017 End: 04-21-2017 DJN DJN [facility] Work Phone: Start: 04-21-2017 End: 04-21-2017 Follow Up Appt 6 months Follow Up Appt 6 months [facility] Work Phone: Start: 04-20-2017 End: 03-30-2017 *BMP *BMP [facility] Work Phone: Start: 03-30-2017 End: 03-30-2017 Appointment Appointment [facility] Work Phone: Start: 03-30-2017 End: 03-30-2017 Appointment Appointment [facility] Work Phone: Start: 03-30-2017 End: 03-30-2017 Appointment [facility] Work Phone: Start: 03-30-2017 End: 03-30-2017 *BMP *BMP [facility] Work Phone: Start: 03-30-2017 End: 03-30-2017 *CBC with Differential *CBC with Differential [facility] Work Phone: Start: 03-30-2017 End: 03-30-2017 Cardioversion Cardioversion [facility] Work Phone: Start: 03-30-2017 End: 03-30-2017 Chest x-ray X-Ray, Chest, PA & Lateral [facility] Work Phone: Start: 03-30-2017 End: 03-30-2017 Ecg routine ecg w/least 12 lds w/i&r EKG (In office) [facility] Work Phone: Start: 03-30-2017 End: 03-30-2017 Natriuretic peptide B mass conc (Bld) *Brain Natriuretic Peptide BNP [facility] Work Phone: Start: 03-04-2017 End: 03-04-2017 Appointment Appointment [facility] Work Phone: Start: 03-04-2017 End: 03-18-2017 *BMP *BMP [facility] Work Phone: Start: 03-04-2017 End: 03-18-2017 Cardioversion Cardioversion [facility] Work Phone: Start: 03-04-2017 End: 03-18-2017 CBC W Auto Differential panel - Blood *CBC without Diff [facility] Work Phone: Start: 03-04-2017 End: 03-30-2017 Electrocardiogram, complete EKG (In office) [facility] Work Phone: NEGATED: Highlighted row has been ruled out! Planned Goals not documented [facility] Work Phone: Payers Date Payer Category Payer Unknown [id number] 1945 Unknown [id number] [id number] 1945 Unknown [id number] 1945 Unknown [id number] [id number] 1944 Unknown [id number] [id number]. [id number] Medicare [id number] Social History Date Type Detail Facility Assertion Tobacco smoking consumption unknown (finding) [facility] Work Phone: Functional Status Date Assessment Result Facility NEGATED: Highlighted row Functional performance Functional status health issues are not documented Disease [facility] Work Phone: Mental Status Date Assessment Result Facility NEGATED: Highlighted row Cognitive function [Interpretation] Cognitive status health issues are not documented Disease [facility] Work Phone: Progress note 07-09-2021 Note Date & Type Note Facility 07-09-2021 Note HNO ID: [id number] Author: Mckay Lu II, OD Service: ? Author Type: RETAIL ADMINISTRATIVE ASSISTANT Type: Progress Notes Filed: 07/09/2021 10:24 AM Note Text: Assessment and Plan H25.813 Combined form of senile cataract of both eyes (primary encounter diagnosis) Comment: Slow progression of cataracts. Tolerated at this time. Recheck yearly. 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 Monitor. 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 Retinas flat and intact with no apparent retinal tear or traction. Monitor yearly. 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 Continue observation yearly. 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 Update glasses to maximize visual performance. I have confirmed and edited as necessary the relevant ophthalmic history, ROS, and the neuro exam findings as obtained by others. I have seen and examined Magali Ramos. I have discussed the case and the management of this patient's care with the Resident/Fellow, if applicable. I also have reviewed and agree with the assessment and plan as stated above and agree with all of its relevant components. Mckay Lu II, OMAR [facility] Clinical Note 11-22-2020 Note Date & Type Note Facility 11-22-2020 Note Patient Outreach (CO VAMN) MAGALI RAMOS ([id number]) 1945 M Date Time Provider Department 11/22/20 COLINS, ANDREA GARZA During your visit today, we recorded the following information about you: Allergies As of Date: 11/22/2020 (No Known Allergies) Date Reviewed: 05/24/2020 Reviewed by: Mckay Salinas (Od) Aly MAYS - Fully Assessed Order(s):SARS-COVID VACCINE 1ST DOSE APPT [[id number]] Order #: [id number] FUTURE Prescriptions as of 11/22/2020 Sig: XARELTO 20 MG TABLET AMIODARONE 200 MG TABLET LOSARTAN 25 MG TABLET Problem List As Of Date 11/22/2020 Noted Resolved Combined senile cataract [H25.819] 12/25/2015 Vitreous floaters of both eyes [H43.393] 12/25/2015 Astigmatism, regular [H52.229] 12/25/2015 Presbyopia [H52.4] 12/25/2015 Myopia [H52.10] 12/25/2015 Letter Text Encounter Status:Closed by GA, PRODUSER on 11/26/20 [facility] Summary Purpose Family History No Family History Records FoundNo Family History Records FoundNo Family History Records FoundNo Family History Records Found Advance Directives No Advanced Directives Records FoundNo Advanced Directives Records FoundNo Advanced Directives Records FoundNo Advanced Directives Records Found Additional Source Comments (unrecognized sect ion and content) No Status Records FoundNo Status Records FoundNo Status Records FoundNo Status Records Found INFORMATION SOURCE (unrecogn ized section and content) DATE CREATED AUTHOR AUTHOR'S ORGANIZ ATION 01/13/2019 [facility] DATE CREATED AUTHOR AUTHOR'S ORGANIZ ATION 03/23/2019 [facility] DATE CREATED AUTHOR AUTHOR'S ORGANIZ ATION 10/30/2021 [facility] FOR RECORDS PERTAINING TO PATIENTS WHO ARE OR HAVE BEEN ENROLLED IN A CHEMICAL DEPENDENCY/SUBSTANCEABUSE PROGRAM, SOME INFORMATION MAY BE OMITTED. This clinical summary was aggregated from multiple sources. Caution should be exercised in using it in the provision of clinical care. This summary normalizes information from multiple sources, and as a consequence, information in this document may materially change the coding, format and clinical context of patient data. In addition, data may be omitted in some cases. CLINICAL DECISIONS SHOULD BE BASED ON THE PRIMARY CLINICAL RECORDS. [facility] [employer] provides no warranty or guarantee of the accuracy or completeness of information in this document.
[2023-10-14 11:10] LABS: Absolute Lymphocyte Count 0.93 X10^3/uL (0.83-4.51); Absolute Neutrophil Count 5.7 X10^3/uL (2.0-7.7); Basophil# 0.03 X10^3/uL; Basophil% 0.4 % (0-1); Eosinophil# 0.22 X10^3/uL; Eosinophils% 2.9 % (0-5); Hematocrit 36.6 % (40-54); Hemoglobin 11.8 g/dL (13.0-16.5); Lymphocyte # 0.93 X10^3/ul (0.83-4.51); Lymphocyte % 12.2 % (19-41); Mean Corp Hgb Conc 32.2 g/dL (32-36); Mean Corpuscular Hgb 31.6 pg (27.0-32.0); Mean Corpuscular Volume 97.9 fL (80-94); Mean Platelet Vol. 10.6 fl (6.2-12.0); Monocyte# 0.73 X10^3/uL; Monocyte% 9.6 % (0-10); NRBC Flagged by Analyzer 0 % (0-5); Neutrophil # 5.68 X10^3/uL (2.7-7.7); Neutrophil % 74.2 % (47-70); Platelet Count 251 K/mm3 (150-450); RBC Distribution Width CV 13.4 % (11.6-14.6); RBC Distribution Width SD 48.3 fl (35.1-43.9); Red Blood Count 3.74 M/mm3 (4.6-6.2); White Blood Count 7.6 K/mm3 (4.4-11.0)
[2023-10-14 12:16] LABS: AST(SGOT) 20 U/L (15-37); Alanine Aminotransfer ALT/SGPT 18 U/L (16-61); Albumin, Serum 3.3 g/dL (3.2-5.0); Alkaline Phosphatase 45 U/L (45-117); Anion Gap 3 (5-15); BUN 35 mg/dL (7-18); BUN/Creat Ratio 21.9 RATIO (10-20); Bilirubin, Direct 0.18 mg/dL (0.00-0.30); Calcium,Total 8.7 mg/dL (8.5-10.1); Chloride 107 mmol/L (98-107); Cholesterol 152 mg/dL (200); EST Glomerular Filtration Rate 45 mL/min (>60); Est Glom Filt Rate - Afr Amer 54 mL/min (>60); Free T3 2.6 pg/mL (2.18-3.98); Globulin 4.6 g/dL (2.2-4.2); Glucose 86 mg/dL (74-106); High Density Lipoprotein 63 mg/dL; Potassium 4.3 mmol/L (3.5-5.1); Protein, Total 7.9 g/dL (6.4-8.2); Sodium Level 138 mmol/L (136-145); T4 Free Direct 0.97 ng/dL (0.76-1.46); Thyroid Stim Hormone (TSH) 8.84 uIU/mL (0.358-3.74); Triglycerides 97 mg/dL; Very Low Density Lipoprotein 19 mg/dL (5-40)
== END | disposition home or self-care (01) ==
LOC: RAD 09:45
PROVIDERS: PCP Family Medicine; Referring Provider Nurse Practitioner Gerontology; Visit Provider Nurse Practitioner Gerontology
DX: Z79.899 Other long term (current) drug therapy (principal); I10 Essential (primary) hypertension; E78.5 Hyperlipidemia, unspecified
CPT/HCPCS: 36415; 71046; 80048; 80061; 80076; 84439; 84443; 84481; 85025

== ENCOUNTER → 2023-10-19 | Outpatient (CLI) | payer MEDICARE, OTHER, SELFPAY ==
--- OUTSIDE RECORDS SUMMARY | 2023-10-19 07:55 | XMS RPT_ITS | CCD ---
Author Name Unknown Address [address] [place] [address] Organization [facility] Care Team Providers Care Stitch Bonding Machine Tender Name Role Phone Berg Russ LOGAN Unavailable Unavailable IVORY FUCHS Attending Unavailable ROSIBEL COSTELLO Primary Care Unavailable IVORY FUCHS Attending Unavailable ROSIBEL COSTELLO Primary Care Unavailable IVORY FUCHS Admitting Unavailable MONA GAMEZ Unavailable IVORY FUCHS Attending Unavailable ROSIBEL COSTELLO Primary Care Unavailable ALEXIA Yoon, Pinky Peña Unavailable Unavailchandler Cottrell RN, Tory Best Unavailable Unavailable Juany Ray Unavailable Unavailable Roof BOTTLE CAPPER, Jose Salinas Unavailable Ronit HALE, Tory Best [...] One tablet by mouth daily AMIODARONE HCL [id number] Ramone Smith MD Problems Active Problems Problem [...] Unclassified (12 sources) Drug therapy finding; Translations: [senior care (current) use of anticoagulants] Onset: 03-04-2017 03-04-2017 Unclassified (9 sources) Long-term drug therapy; Translations: [Other jail (current) drug therapy] Onset: 03-04-2017 03-04-2017 Past or Other Problems Problem Classification Problem Date Documented Da te Episodic/Chronic Other aftercare (3 sources) Other terminal supervisor (current) drug therapy; Translations: [Other terminal supervisor (current) drug therapy] Onset: 03-04-2017 03-04-2017 Episodic [...] Date Time Vital Sign Value Performing Clinician Kim suarez 04-21-2017 13:05-0400 BMI (Body Mass Index) 33.96 kg/m2 [facility] Work Phone: 04-21-2017 13:05-0400 BP Diastolic 70 mm[Hg] [facility] Work Phone: 04-21-2017 13:05-0400 BP Systolic 150 mm[Hg] [facility] Work Phone: 04-21-2017 13:05-0400 Height 175.26 cm [facility] Work Phone: 04-21-2017 13:05-0400 Pulse (Heart Rate) 42 /min [facility] Work Phone: 04-21-2017 13:05-0400 Respiratory Rate 20 /min Carissa Kylah [facility] Work Phone: 04-21-2017 13:05-0400 Weight 104.33 kg Carissa Kylah [facility] Work Phone: 04-21-2017 13:01-0400 Heart rate 42 /min Carissa Kylah [facility] Work Phone: 03-30-2017 12:17-0400 BMI (Body Mass Index) 34.18 kg/m2 Jose Rocío BOTTLE CAPPER [facility] Work Phone: 03-30-2017 12:17-0400 BP Diastolic 70 mm[Hg] Jose Alford BOTTLE CAPPER [facility] Work Phone: 03-30-2017 12:17-0400 BP Systolic 110 mm[Hg] Jose Rocío BOTTLE CAPPER [facility] Work Phone: 03-30-2017 12:17-0400 Height 175.26 cm Jose Rocío BOTTLE CAPPER [facility] Work Phone: 03-30-2017 12:17-0400 Pulse (Heart Rate) 73 /min Jose Rocío BOTTLE CAPPER [facility] Work Phone: 03-30-2017 12:17-0400 Respiratory Rate 2 /min Jose Rocío BOTTLE CAPPER [facility] Work Phone: 03-30-2017 12:17-0400 Weight 105.01 kg Jose Alford BOTTLE CAPPER [facility] Work Phone: 03-30-2017 11:37-0400 Heart rate 73 /min Juany Ray [facility] Work Phone: 03-04-2017 09:27-0400 Heart rate 78 /min Pinky Yoon RN [facility] Work Phone: Encounters Encounter Date Encounter Type Care Provider Facility Start: 09-05-2020 Patient encounter [facility] Work Phone: Start: 08-29-2020 Patient encounter procedure Kimmy Workman [facility] Work Phone: Start: 08-27-2020 Patient encounter [...] management education, guidance, and counseling Jose Alford BOTTLE CAPPER Start: 03-30-2017 End: 03-30-2017 *CBC with Differential [...] Phone: Start: 04-21-2017 End: 04-21-2017 DJN DJN [facility] Work Phone: Start: 04-21-2017 End: 04-21-2017 Follow Up Appt 6 months Follow Up Appt 6 months [facility] Work Phone: Start: 04-20-2017 End: 03-30-2017 *BMP *BMP [facility] Work Phone: Start: 03-30-2017 End: 03-30-2017 Appointment Appointment [facility] Work Phone: Start: 03-30-2017 End: 03-30-2017 Appointment Appointment [facility] Work Phone: Start: 03-30-2017 End: 03-30-2017 Appointment [facility] Work Phone: Start: 03-30-2017 End: 03-30-2017 *BMP *BMP [facility] Work Phone: Start: 03-30-2017 End: 03-30-2017 *CBC with Differential *CBC with Differential [facility] Work Phone: Start: 03-30-2017 End: 03-30-2017 Cardioversion Cardioversion [facility] Work Phone: Start: 03-30-2017 End: 03-30-2017 Chest x-ray X-Ray, Chest, PA & Lateral [facility] Work Phone: Start: 03-30-2017 End: 03-30-2017 Ecg routine ecg w/least 12 lds w/i&r EKG (In office) [facility] Work Phone: Start: 03-30-2017 End: 03-30-2017 Natriuretic peptide B mass conc (Bld) *Brain Natriuretic Peptide BNP [facility] Work Phone: Start: 03-04-2017 End: 03-04-2017 Appointment Appointment [facility] Work Phone: Start: 03-04-2017 End: 03-18-2017 *BMP *BMP [facility] Work Phone: Start: 03-04-2017 End: 03-18-2017 Cardioversion Cardioversion [facility] Work Phone: Start: 03-04-2017 End: 03-18-2017 CBC W Auto Differential panel - Blood *CBC without Diff [facility] Work Phone: Start: 03-04-2017 End: 03-30-2017 Electrocardiogram, complete EKG (In office) [facility] Work Phone: NEGATED: Highlighted row has been ruled out! Planned Goals not documented [facility] Work Phone: Payers Date Payer Category Payer Unknown [id number] 1945 Unknown [id number] 1945 Unknown [id number] 1945 Unknown [id number] [id number] 1944 Unknown [id number] [id number]. [id number] Medicare [id number] Social History Date Type Detail Facility Assertion Tobacco smoking consumption unknown (finding) [facility] Work Phone: Functional Status Date Assessment Result Facility NEGATED: Highlighted row Functional performance Functional status health issues are not documented Disease [facility] Work Phone: Mental Status Date Assessment Result Facility NEGATED: Highlighted row Cognitive function [Interpretation] Cognitive status health issues are not documented Disease [facility] Work Phone: Progress note 07-09-2021 Note Date & Type Note Facility 07-09-2021 Note HNO ID: [id number] Author: Mckay Lu II, OD Service: ? Author Type: CORRECTIONAL SUPERVISOR Type: Progress Notes Filed: 07/09/2021 10:24 AM [...] components. Mckay Lu II, OMAR [facility] Clinical Note 11-22-2020 Note Date & Type Note Facility 11-22-2020 Note Patient Outreach (CO VAM[facility]) MAGALI RAMOS ([id number]) 1945 M Date Time Provider Department 11/22/20 COLINS, ANDREA GARZA During your visit today, we recorded the following information about you: Allergies As of Date: 11/22/2020 (No Known Allergies) Date Reviewed: 05/24/2020 Reviewed by: Mckay Salinas (Od) Aly MAYS - Fully Assessed Order(s):SARS-COVID VACCINE 1ST DOSE APPT [[id number]] Order #: [id number] FUTURE Prescriptions as of 11/22/2020 Sig: XARELTO 20 MG TABLET AMIODARONE 200 MG TABLET LOSARTAN 25 MG TABLET Problem List As Of Date 11/22/2020 Noted Resolved Combined senile cataract [H25.819] 12/25/2015 Vitreous floaters of both eyes [H43.393] 12/25/2015 Astigmatism, regular [H52.229] 12/25/2015 Presbyopia [H52.4] 12/25/2015 Myopia [H52.10] 12/25/2015 Letter Text Encounter Status:Closed by GA, PRODUSER on 11/26/20 [facility] Summary Purpose Family History No Family [...] DATE CREATED AUTHOR AUTHOR'S ORGANIZ ATION 01/13/2019 [facility] DATE CREATED AUTHOR AUTHOR'S ORGANIZ ATION 03/23/2019 [facility] DATE CREATED AUTHOR AUTHOR'S ORGANIZ ATION 10/30/2021 [facility] FOR RECORDS PERTAINING TO PATIENTS WHO [...] BE BASED ON THE PRIMARY CLINICAL RECORDS. [facility] [employer] provides no warranty or guarantee of the accuracy or completeness of information in this document.
--- NOTE | 2023-10-20 12:46 | PFT ---
INTRODUCTION: The patient is a 78-year-old male who presents for pulmonary function studies secondary to a diagnosis of amiodarone therapy. Respiratory therapy reported good patient effort. Bronchodilators were used during testing. INTERPRETATION: Forced expiration spirometry demonstrates the presence of a moderate large airways obstructive ventilatory defect. There was no significant response to aerosolized bronchodilators. Body plethysmography was performed and revealed lung volumes to be within normal limits. Diffusing capacity by single breath CO was reduced to 54% of predicted. IMPRESSION: Irreversible moderate large airways obstructive ventilatory defect with symmetric reduction in diffusing capacity.
== END | disposition home or self-care (01) ==
LOC: PSN 07:34
PROVIDERS: PCP Family Medicine; Referring Provider Nurse Practitioner Gerontology; Visit Provider Nurse Practitioner Gerontology
DX: Z79.899 Other long term (current) drug therapy (principal)
CPT/HCPCS: 94060; 94726; 94729

== ENCOUNTER → 2023-11-25 | Outpatient (CLI) | payer MEDICARE, OTHER, SELFPAY ==
[2023-11-25 11:00] LABS: Thyroid Stim Hormone (TSH) 8.42 uIU/mL (0.358-3.74)
== END | disposition home or self-care (01) ==
LOC: LAB 09:39
PROVIDERS: PCP Family Medicine; Referring Provider Nurse Practitioner Gerontology; Visit Provider Nurse Practitioner Gerontology
DX: E03.9 Hypothyroidism, unspecified (principal); Z79.899 Other long term (current) drug therapy
CPT/HCPCS: 36415; 84443

== ENCOUNTER → 2024-01-08 | Outpatient (CLI) | payer MEDICARE, OTHER, SELFPAY ==
[2024-01-08 12:10] LABS: Thyroid Stim Hormone (TSH) 7.19 uIU/mL (0.358-3.74)
== END | disposition home or self-care (01) ==
LOC: LAB 10:32
PROVIDERS: Referring Provider Nurse Practitioner Gerontology; Visit Provider Nurse Practitioner Gerontology
DX: Z79.899 Other long term (current) drug therapy (principal)
CPT/HCPCS: 36415; 84443

== ENCOUNTER → 2024-04-15 | Outpatient (CLI) | payer MEDICARE, OTHER, SELFPAY | END | disposition home or self-care (01) | PROVIDERS: Referring Provider Nurse Practitioner Gerontology; Visit Provider Nurse Practitioner Gerontology | DX: Z79.899 Other long term (current) drug therapy (principal) | CPT/HCPCS: 94060; 94726; 94729 ==

== ENCOUNTER → 2024-11-16 | Outpatient (CLI) | payer MEDICARE, OTHER, SELFPAY ==
[2024-11-16 12:08] LABS: Anion Gap 7 (5-15); BUN 22 mg/dL (7-18); BUN/Creat Ratio 19.3 RATIO (10-20); Calcium,Total 8.7 mg/dL (8.5-10.1); Chloride 106 mmol/L (98-107); Cholesterol 148 mg/dL (200); Creatinine, Serum 1.14 mg/dL (0.70-1.30); EST Glomerular Filtration Rate 66 mL/min (>60); Est Glom Filt Rate - Afr Amer 79 mL/min (>60); Glucose 91 mg/dL (74-106); High Density Lipoprotein 53 mg/dL; Potassium 4.1 mmol/L (3.5-5.1); Sodium Level 137 mmol/L (136-145); Triglycerides 71 mg/dL; Very Low Density Lipoprotein 14 mg/dL (5-40)
== END | disposition home or self-care (01) ==
PROVIDERS: PCP Family Medicine; Referring Provider Student in an Organized Health Care Education/Training Program; Visit Provider Student in an Organized Health Care Education/Training Program
DX: H26.9 Unspecified cataract (principal); E78.5 Hyperlipidemia, unspecified
CPT/HCPCS: 36415; 80048; 80061; 84443

== ENCOUNTER 2025-08-19 15:04 | Emergency (ER) | payer MEDICARE, OTHER, SELFPAY ==
[2025-08-19] VITALS (7 sets, daily range): BP systolic 99–134; BP diastolic 73–90; PULSE 59–84; RESP 16–18; TEMP 36.6–37; O2SAT 98–100
--- NOTE | 2025-08-19 15:20 | EDS_ITS ---
HPI History of Present Illness Chief Complaint: Dizziness Informant: patient Onset/Context/Timing Onset: Today Context: Sudden Onset Timing: Intermittent and Lasts (Approximately 10 minutes) Quality: Off balance Location: Generalized Worsened by: Nothing Relieved by: Nothing Narrative Narrative: Patient presents with dizziness and lightheadedness that began today. Patient dizzy began rather suddenly. Patient states he was driving when it began. Patient states it lasted proxy 10 minutes and then has resolved. Patient states he felt off balance. Patient states nothing makes it better and nothing makes it worse. Patient admits to some nausea but denies any vomiting. Patient states he has had some rhinorrhea recently. Patient denies any fevers or chills. Patient denies any chest pain or palpitations. Patient states he does have a history of atrial fibrillation however. [facility] Medical History Paroxysmal atrial fibrillation Osteoarthritis Hypothyroidism (acquired) Essential hypertension [employer] current use of amiodarone Hyperlipidemia Obesity Home Medications Medication Instructions Recorded Last Taken Type rivaroxaban 20 mg tablet 20 mg PO QDAY #90 tabs 11/16 Unknown Rx rosuvastatin 5 mg tablet 5 mg PO DAILY #90 tabs 05/02 Unknown Rx levothyroxine 50 mcg tablet 50 mcg PO SUTUTHSA 5 Unknown History levothyroxine 75 mcg tablet 75 mcg PO MOWEFR 08/19/25 Unknown History Allergy/AdvReac Type Severity Reaction Status Date / Time No Known Allergies Allergy Verified 08/19/25 15:08 Family History Mother CAD (coronary artery disease) Sudden cardiac Surgical History History of right knee joint replacement (01/2019) History of left heart catheterization (02/24/17) History of cardioversion (04/2017) Social History Smoking Status: Never smoker alcohol intake: never substance use type: does not use caffeine: No ROS ROS ED Constitutional Constitutional ED: Denies chills or fever(s) Eyes Eyes: Denies blurry vision or change in vision ENT ENT ED: Reports rhinorrhea; Denies sore throat Cardiovascular Cardiovascular: Denies chest pain or palpitations Respiratory/Chest Respiratory/Chest: Denies cough or dyspnea Gastrointestinal Gastrointestinal: Reports nausea; Denies vomiting Genitourinary Genitourinary ED: Denies dysuria or hematuria Musculoskeletal Musculoskeletal: Denies back pain or neck pain Integumentary Denies abscess or rash Neurologic Neurologic: Denies headache(s) or weakness Allergic/Immunologic Allergic/Immunologic ED: Denies mouth swelling or urticaria EXAM Physical Exam Const Vital Signs: 08/19/25 15:06 08/19/25 16:04 08/19/25 16:46 Temperature 98 F Temperature Source Oral Pulse Rate 70 67 Pulse Rate [Lying] 69 Pulse Rate [Sitting (for 1 minute prior to obtaining)] 66 Pulse Rate [Standing (for 1 minute prior to obtaining)] 84 Respiratory Rate 18 16 Blood Pressure 133/74 H Blood Pressure [Lying] 126/90 H Blood Pressure [Sitting (for 1 minute prior to obtaining)] 134/86 H Blood Pressure [Standing (for 1 minute prior to obtaining)] 99/73 Blood Pressure Mean 93 Blood Pressure Mean [Lying] 102 Blood Pressure Mean [Sitting (for 1 minute prior to obtaining)] 102 Blood Pressure Mean [Standing (for 1 minute prior to obtaining)] 81 Pulse Ox 99 98 Oxygen Delivery Method Room Air Room Air 08/19/25 17:36 08/19/25 18:00 Temperature 98.6 F Temperature Source Oral Pulse Rate 59 L 64 Pulse Rate [Lying] Pulse Rate [Sitting (for 1 minute prior to obtaining)] Pulse Rate [Standing (for 1 minute prior to obtaining)] Respiratory Rate 16 18 Blood Pressure 126/78 H 129/76 H Blood Pressure [Lying] Blood Pressure [Sitting (for 1 minute prior to obtaining)] Blood Pressure [Standing (for 1 minute prior to obtaining)] Blood Pressure Mean 94 93 Blood Pressure Mean [Lying] Blood Pressure Mean [Sitting (for 1 minute prior to obtaining)] Blood Pressure Mean [Standing (for 1 minute prior to obtaining)] Pulse Ox 98 98 Oxygen Delivery Method Room Air Room Air Positive well nourished and well developed General Appearance ED: well developed and NAD HEENT Reports moist mucous membranes Neck supple and no JVD Resp normal respiratory effort and clear to auscultation bilaterally Cardio regular rate Rhythm: abnormal rhythm irregularly irregular GI non-tender and non-distended Palpation: soft Extremity normal to inspection General Extremety ED: Negative for edema or tenderness General Extremity: Negative for edema Neuro oriented x3, CN's II-XII intact bilaterally and no sensory deficits noted Sensorium / Orientation: alert Motor Exam: strength 5/5 throughout Psych mental status grossly normal MDM MDM MDM Narrative Medical decision making narrative: Differential diagnosis includes cardiac dysrhythmia, cardiac ischemia, pneumonia, bronchitis, stroke, intracranial bleeding, electrolyte abnormality, dehydration, hypothyroidism, and anxiety. EKG will be obtained to assess for cardiac dysrhythmia and cardiac ischemia. Chest x-ray will be obtained to assess for pneumonia and bronchitis. CT scan of the brain will be obtained to assess for stroke and intracranial bleeding. CBC will be obtained to assess for leukocytosis and anemia. Basic metabolic profile will be obtained to assess for electrolyte abnormality and renal function. High-sensitivity troponin will be obtained to assess for cardiac ischemia. 2-hour repeat high-sensitivity troponin will be obtained to assess for ongoing cardiac ischemia. PT with INR and PTT will be obtained to assess for coagulopathy. Urinalysis will be obtained to assess for urinary tract infection and hematuria. History & Record Review Additional record(s) reviewed:: Prior outpatient record and Prior labs Lab Data Attestation: I reviewed the patient's lab results. Lab results narrative: CBC was reviewed. There is a mild anemia with a hemoglobin of 12.8 and hematocrit of 39.7. The remainder is within normal limits. Basic metabolic profile was reviewed. BUN was slightly elevated at 30 and creatinine was slightly elevated at 1.26. Glucose was mildly elevated at 152. The remainder is within normal limits. Initial high-sensitivity troponin was reviewed and was normal at 16. 2-hour repeat high-sensitivity troponin was reviewed and was normal at 15. Urinalysis was reviewed. There is no evidence of urinary tract infection or hematuria. Labs: Laboratory Results - last 24 hr 08/19/25 08/19/25 08/19/25 15:41 17:13 17:54 WBC 8.3 RBC 4.11 L Hgb 12.8 L Hct 39.7 L MCV 96.6 H MCH 31.1 MCHC 32.2 RDW Std Deviation 48.0 H RDW Coeff of Luisa 13.5 Plt Count 201 MPV 9.9 Immature Gran % (Auto) 0.500 Neut % (Auto) 86.4 H Lymph % (Auto) 6.0 L Dougherty % (Auto) 5.1 Eos % (Auto) 1.6 Baso % (Auto) 0.4 Absolute Neuts (auto) 7.2 Absolute Lymphs (auto) 0.50 L Nucleated RBC % 0 PT 27.6 H INR 2.5 APTT 34.9 Sodium 135 Potassium 4.2 Chloride 102 Carbon Dioxide 20.8 L Anion Gap 12 BUN 30 H Creatinine 1.26 H Est GFR (MDRD) Non-Af 57 L BUN/Creatinine Ratio 23.5 H Glucose 152 H Calcium 8.8 Troponin T High Sens 16 Troponin T Hi Sens 2 Hr 15 Urine Color Yellow Urine Clarity Clear Urine pH 6.0 Ur Specific [place] 1.020 Urine Protein 15 H Urine Glucose (UA) Normal Urine Ketones Negative Urine Occult Blood 150 H Urine Nitrite Negative Urine Bilirubin Negative Urine Urobilinogen 1 H Ur Leukocyte Esterase 25 H Urine RBC 5-10 SEEN Urine WBC 0-5 SEEN Ur Squamous Epith Cells 0-5 SEEN Urine Bacteria 0 SEEN Urine Mucus 0 SEEN Radiography Diagnostic Testing: Clinical Impression(s) from Imaging Studies Brain CT 08/19/25 15:36 IMPRESSION: 1. No intracranial hemorrhage. No mass effect or midline shift. 2. Mild involutional and ischemic gliotic white matter changes. Reading Location: [facility] Chest X-Ray 08/19/25 16:37 IMPRESSION: NO ACUTE FINDINGS. Reading Location: [facility] CT scan of the brain was obtained. There is no acute intracranial abnormality. There are mild chronic changes noted. This was interpreted by the radiologist. I also independently reviewed the CT scan I did not see any intracranial ble eding. EKG Initial EKG: Attestation: I personally reviewed and interpreted this EKG as follows: Interpretation: No Acute Injury Pattern and Atrial Fibrillation (66) Comments: EKG was obtained. On my independent interpretation, shows at rial fibrillation with a rate of 66. QRS interval is normal at 86 ms. QTc interval is normal at 425 ms. Rescue was normal. There are no acute ST or T wave changes noted. Prior EKG tracings: available for review Prior: Unchanged (11/16/2024) Treatment and Re-Evaluation :: Patient was feeling better on reevaluation. Patient was able to ambulate without difficulty. Patient was advised of his findings. Patient was instructed to follow-up with his primary care physician in 5 to 7 days. Patient and family understood and were agreeable with the plan. All questions were answered. Discharge Plan Triage Chief Complaint: Dizziness ED Provider: Roel Khan Dx/Rx/DC Orders Clinical Impression: Dizziness, Atrial fibrillation, Essential hypertension Instructions: ED AFIB, ED Dizziness, Uncertain Cause Prescriptions: No Action rivaroxaban 20 mg tablet 20 mg PO QDAY Qty: 90 3RF levothyroxine 75 mcg tablet 75 mcg PO MOWEFR levothyroxine 50 mcg tablet 50 mcg PO SUTUTHSA rosuvastatin 5 mg tablet 5 mg PO DAILY Qty: 90 3RF Primary Care Provider: Cynthia Sprague Referrals: Cynthia Sprague MD [Primary Care Provider, Family Practice] - 3-5 Days Print Language: Maltese Disposition Disposition: Home, Self Care
--- NOTE | 2025-08-19 15:36 | CT_ITS ---
PROCEDURE: BRAIN/HEAD WITHOUT CONTRAST 08/19/2025 REASON FOR EXAM: DIZZINESS TECHNIQUE: Procedure Code: CTBR Modality: CT Procedure: BRAIN/HEAD WITHOUT CONTRAST Coronal and Sagittal reconstruction series were provided. One or more dose reduction techniques were used (e.g., Automated exposure control, adjustment of the mA and/or kV according to patient size, use of iterative reconstruction technique. COMPARISON: None available. FINDINGS: There is no extra-axial or intra-axial intracranial hemorrhage. No mass effect or midline shift is seen. Generalized intracranial volume loss and findings compatible with chronic microvascular white matter ischemia. There is normal thomas-white matter differentiation. The posterior fossa is grossly unremarkable. The skull is unremarkable. Visualized paranasal sinuses are clear. The mastoid air cells show normal translucency. CT/Brain/Head without Contrast IMPRESSION: 1. No intracranial hemorrhage. No mass effect or midline shift. 2. Mild involutional and ischemic gliotic white matter changes. Reading [facility]
--- NOTE | 2025-08-19 15:36 | EKG12_ITS ---
Test Reason : Blood Pressure : */* mmHG Vent. Rate : 66 BPM Atrial Rate : * BPM P-R Int : * ms QRS Dur : 86 ms QT Int : 406 ms P-R-T Axes : * 25 -4 degrees QTcB Int : 425 ms Atrial fibrillation Abnormal ECG Confirmed by STEW GARCIA, JESSICA ([id number]), editor at large MIREYA WELLS ([id number]) on 08/21/2025 9:12:16 AM Referred By: Confirmed By: JESSICA MATHIAS MD
--- OUTSIDE RECORDS SUMMARY | 2025-08-19 15:48 | XMS RPT_ITS | CCD ---
Author Organization [facility] Care Team Providers Care Fruit Thinner Machine Operator Name Role Phone Morena Russ LOGAN Unavailable Unavailable IVORY FUCHS Attending Unavailable ROSIBEL WICK Primary Care Unavailable IVORY FUCHS Attending Unavailable ROSIBEL WICK Primary Care Unavailable IVORY FUCHS Admitting Unavailable MONA GAMEZ Consulting Unavailable IVORY FUCHS Attending Unavailable ROSIBEL WICK Primary Care Unavailable ALEXIA Yoon, Pinky Peña Unavailable Unavailchandler Cottrell RN, Tory A Unavailable Unavailable Juany Ray Unavailable Unavailable Rocío ENERGY TRADING ANALYST, Jose Salinas Unavailable Ronit RN, Tory A Unavailable Unavailable Ronit HALE, Tory A Unavailable Unavailable Montero, Carissa M Unavailable Unavailable Montero, Carissa M Unavailable Unavailable Kimmy Workman Unavailable Unavailable Dr. Rosibel Acosta Primary Care Provider [phone] Dr. Rosibel Acosta Referring Provider Simone DIETZ, ENERGY TRADING ANALYST-C Shana Attending Provider Simone DIETZ, ENERGY TRADING ANALYST-C Shana Referring Provider Simone DIETZ, ENERGY TRADING ANALYST-C Shana Other Provider Dr. Leonidas Matos Attending Provider [phone] Dr. Rosibel Acosta Primary Care Provider Dr. Rosibel Acosta Referring Provider [phone] Simone DIETZ, ENERGY TRADING ANALYST-C Shana Attending Provider Simone DIETZ, ENERGY TRADING ANALYST-C Shana Referring Provider Simone DIETZ, ENERGY TRADING ANALYST-C Shana Other Provider Dr. Leonidas Matos Attending Provider [phone] Jessica Funk MD Primary Care Provider BLESSING, JESSICA M Primary Care Unavailable YEATER, JESSICA M Primary Care Unavailable Jessica Funk MD Primary Care Provider BRIAN GRIFFITH Attending Unavailable GRIFFITH, BRIAN K Admitting Unavailable YEATER, JESSICA M Primary Care Unavailable JOSE ELIAS, DAVID Primary Care Unavailable Simone ENERGY TRADING ANALYST, Shana Attending Unavailable Simone ENERGY TRADING ANALYST, Shana Referring Unavailable Simone ENERGY TRADING ANALYST, Shana Attending Unavailable Simone ENERGY TRADING ANALYST, Shana Referring Unavailable Care Physician, No Primary Primary Care Unava ilable Yeater, Jessica M Primary Care Unavailable Vernon Bills Attending Unavailable Vernon Bills Referring Unavailable Leonidas Matos Attending Unavailable Rosibel Acosta Referring Unavailable [facility] Doctor, Out of Primary Care Unavailable Vernon Bills Attending Unavailable Jessica Funk MD Primary Care Provider [phone] BLESSING, JESSICA Peña Attending Unavailable YEATER, JESSICA M Primary Care Unavailable COOPERRIDJAZMIN IISTEVEN Attending Unavailabl e GRIFFITH, BRIAN K Referring Unavailable YEATER, JESSICA M Primary Care Unavailable GRIFFITHNAOMIBRIAN K Attending Unavailable GRIFFITH, BRIAN K Referring Unavailable YEATER, JESSICA M Primary Care Unavailable GRIFFITH, BRIAN K Attending Unavailable GRIFFITH, BRIAN K Referring Unavailable YEATER, JESSICA M Primary Care Unavailable COOPERRIDER STEVEN MAYS Attending Unavailabl e GRIFFITH, BRIAN K Referring Unavailable YEATER, JESSICA M Primary Care Unavailable COOPERRIDER II, STEVEN Salinas Attending Unavailabl e GRIFFITH, BRIAN K Referring Unavailable YEATER, JESSICA M Primary Care Unavailable GRIFFITH, BRIAN K Attending Unavailable GRIFFITH, BRIAN K Referring Unavailable YEATER, JESSICA M Primary Care Unavailable GRIFFITH, BRIAN K Attending Unavailable YEATER, JESSICA M Primary Care Unavailable GRIFFITH, BRIAN K Attending Unavailable GRIFFITH, BRIAN K Referring Unavailable YEATER, JESSICA M Primary Care Unavailable GRIFFITH, BRIAN K Attending Unavailable LIBERTADERDAMIAN T Referring Unavailabl e YEATER, JESSICA M Primary Care Unavailable COOPERSAKINAERDAMIAN T Attending Unavailabl e SELF Referring Unavailable YEATER, JESSICA M Primary Care Unavailable GRIFFITH, BRIAN K Attending Unavailable GRIFFITH, BRIAN K Referring Unavailable YEATER, JESSICA M Primary Care Unavailable Medications Current Medications Medication Drug Class(es) Dates Sig (Normalized) Sig (Original) benoxinate hydrochloride 4 mg/ml / fluorescein sodium 3 mg/ml ophthalmic solution (2 sources) Diagnostic Dye Start: 12-14-2024 End: 12-14-2024 fluorescein-benoxi jasmyn 0.3-0.4 % 1 Drop (FLURESS) Start: 12-07-2024 End: 12-07-2024 fluorescein-benoxinate 0.3-0 .4 % 1 Drop (FLURESS) cholecalciferol 0.025 mg oral tablet (16 sources) Vitamin D Start: 08-07-2020 cholecalcifero l (VITAMIN D3) 1,000 unit tab tablet Take by mouth. 08/07/2020 Active Start: 08-07-2020 End: 10-14-2023 take 1000 [IU] by mouth once daily Cholecalciferol (Vitamin D3) Discontinued 1000 UNIT PO DAILY August 07, 2020 1:00am October 14, 2023 10:12am levothyroxine sodium 0.05 mg oral tablet (14 sources) l-Thyroxine Start: 03-15-2024 End: 11-29-2025 take 1 tablet by mouth once daily in the morning levothyroxine (Synthroid, Levoxyl) 50 mcg tablet Indications: Subclinical hypothyroidism Take 1 tablet (50 mcg) by mouth early in the morning.. Take on an empty stomach at the same time each day, either 30 to 60 minutes prior to breakfast 30 tablet 11/29/2024 11/29/2025 Active levothyroxine (S YNTHROID) 25 mcg tablet Active losartan potassium 25 mg oral tablet (20 sources) Angiotensin 2 Receptor Veronika Start: 07-18-2019 End: 08-07-2021 losartan (COZAAR) 25 mg tablet 04/30/2020 Active phenylephrine hydrochloride 25 mg/ml ophthalmic solution (3 sources) alpha-1 Adrenergic Agonist Start: 10-28-2024 End: 10-28-2024 PHENYLephrine 2.5 % 1 Drop (AK-DILATE, PRATEEK-SYNEPHRINE) Start: 10-25-2024 End: 10-25-2024 PHENYLephrine 2.5 % 1 Drop ( AK-DILATE, PRATEEK-SYNEPHRINE) Start: 10-25-2024 End: 10-25-2024 1 Drop, BOTH EYES, ONCE, 1 d ose, On Thu10/25/24 at 1130, FOR OPHTHALMIC USE ONLY PROTECT FROM LIGHT proparacaine hydrochloride 5 mg/ml ophthalmic solution (3 sources) Local Anesthetic Start: 10-28-2024 End: 10-28-2024 proparacaine 0.5 % 1 Drop (ALCAINE) Start: 10-25-2024 End: 10-25-2024 proparacaine 0.5 % 1 Drop (A LCAINE) Start: 10-25-2024 End: 10-25-2024 1 Drop, BOTH EYES, ONCE, 1 d ose, On Thu10/25/24 at 1130, FOR THE EYE Propylene glycol (2 sources) propylene glycol (SYSTANE COMPLETE OPHTHALMIC) Use in eyes. Active rivaroxaban 20 mg oral tablet (20 sources) Factor Xa Inhibitor Start: 7 End: 3 take 1 tablet by mouth once daily at mealtime Xarelto 20 mg tablet Take 1 tablet (20 mg) by mouth once daily in the evening. Take with meals. 11/14/2023 Active rosuvastatin calcium 5 mg oral tablet (20 sources) HMG-CoA Reductase Inhibitor Start: 4 take 1 tablet by mouth once daily rosuvastatin (Crestor) 5 mg tablet Take 1 tablet (5 mg) by mouth once daily. 11/14/2023 Active Start: 08-12-2021 End: 08-10-2023 take 5 mg by mouth once daily Rosuvastatin Discontinue d 5 MG PO DAILY July 23, 2022 11:36am August 14, 2022 10:26am tropicamide 10 mg/ml ophthalmic solution (3 sources) Anticholinergic Start: 10-28-2024 End: 10-28-2024 tropicamide 1 % 1 Drop (MYDRIACYL) Start: 10-25-2024 End: 10-25-2024 tropicamide 1 % 1 Drop (MYDR IACYL) Start: 10-25-2024 End: 10-25-2024 1 Drop, BOTH EYES, ONCE, 1 d ose, On Thu10/25/24 at 1130, FOR THE EYE Completed/Discontinued Medications Medication Drug Class(es) Dates Sig (Normalized) Sig (Original) acetaminophen 500 mg oral tablet (3 sources) Start: 08-23-2020 End: 08-14-2022 take 1000 mg by mouth every eight hours Acetaminophen Discontinued 1000 MG PO EVERY 8 HOURS August 23, 2020 1:00am August 14, 2022 10:24am acetaZOLAMIDE 250 mg oral tablet (2 sources) Carbonic Anhydrase Inhibitor Start: 11-30-2024 End: 11-30-2024 acetaZOLAMIDE 500 mg tab(s) (DIAMOX) Start: 11-30-2024 End: 11-30-2024 take 1 dose by mouth once at mealtime 500 mg, ORAL, ONCE, 1 dose, On Thu11/30/24 at 0900, May be administered with food to decrease GI upset. amiodarone hydrochloride 200 mg oral tablet (20 sources) Antiarrhythmic Start: 10-14-2023 End: 11-27-2023 take 100 mg by mouth once daily Amiodarone Discontinued 100 MG PO DAILY October 14, 2023 4:41pm November 27, 2023 4:34pm Start: 03-30-2017 End: 10-14-2023 amiodarone (PACERONE) 200 mg tablet 02/15/2020 Active Start: 03-30-2017 take 2 tablets by mo uth twice daily, then take 1 tablet by mouth once daily AMIODARONE HCL 200 MG TABS Two tablets by mouth twice daily X 5 days, then One tablet by mouth daily AMIODARONE HCL [id number] Ramone Smith MD aspirin 81 mg delayed release oral tablet (15 sources) Nonsteroidal Anti-inflammatory Drug Start: 03-04-2017 take 1 tablet by mouth once daily ASPIRIN EC 81 MG TBEC One tablet by mouth daily ASPIRIN [id number] Ramone Smith MD Start: 02-24-2017 End: 07-18-2019 take 81 mg by mouth once daily Aspirin Discontinued 81 MG PO DAILY@0800 30 February 24, 2017 12:00am July 18, 2019 1:06pm atorvastatin 20 mg oral tablet (20 sources) HMG-CoA Reductase Inhibitor Start: 02-24-2017 End: 05-27-2018 take 20 mg by mouth at bedtime Atorvastatin Discontinued 20 MG PO AT BEDTIME November 04, 2017 12:03pm May 27, 2018 1:54pm brimonidine tartrate 2 mg/ml ophthalmic solution (3 sources) alpha-Adrenergic Agonist End: 12-23-2024 take 1 drop(s) into the eye(s) twice daily brimonidine (ALPHAGAN) 0.2 % ophthalmic solution Use 1 Drop in the left eye two times a day. 12/23/2024 Discontinued (Clinical Decision) zyvqunr-isfrrvzwu-d inc tablet (3 sources) Start: 08-07-2020 End: 10-14-2023 take 1 tablet by mouth once daily isltzjk-gaizgtnsr-j inc tablet Discontinued 1 TABLET PO DAILY August 07, 2020 1:00am October 14, 2023 10:12am Start: 08-07-2020 End: 10-14-2023 take 1 tablet by mouth once daily ruzhqug-orpkwdlor-owag tablet Discontinued 1 TABLET PO DAILY August 07, 2020 12:00am October 14, 2023 9:12am cyclopentolate 1%-tropicamide 1%-PHENYLephrine 2.5% ophthalmic drops (1 source) Start: 11-29-2024 End: 11-29-2024 1 Drop, LEFT EYE, EVERY 5 MINUTES, 3 doses, First dose on Thu11/29/24 at 1230, Last dose on Thu11/29/24 at 1240, For Topical Ophthalmic Use Only, Preprocedure docusate sodium 50 mg / sennosides, jail 8.6 mg oral tablet (3 sources) Start: 08-23-2020 End: 08-07-2021 Sennosides-Docusate Sodium Discontinued 2 TABLET PO TWICE A DAY August 23, 2020 1:00am August 07, 2021 10:00am Take until first bowel movement, then as needed fluorometholone 1 mg/ml ophthalmic suspension (14 sources) Corticosteroid Start: 10-28-2024 End: 03-22-2025 fluorometholone (FML LIQUID FILM) 0.1 % ophthalmic suspension Use 1 Drop in the right eye three times a day. 5 mL 2 11/30/2024 03/22/2025 Discontinued (Course of therapy completed) Food Supplemt, Lactose-Reduced (3 sources) Start: 08-07-2020 End: 08-07-2021 take 1 mL by mouth once daily Food Supplemt, Lactose-Reduced Discontinued 414 ML PO DAILY August 07, 2020 1:00am August 07, 2021 10:00am Start: 08-07-2020 End: 08-07-2021 take 1 mL by mouth once daily Food Supplemt, Lactose-R educed Discontinued 414 ML PO DAILY August 07, 2020 12:00am August 07, 2021 9:00am furosemide 40 mg oral tablet (17 sources) Loop Diuretic Start: 03-30-2017 End: 05-27-2018 take 40 mg by mouth once daily Furosemide Discontinued 40 MG PO DAILY November 04, 2017 12:01pm May 27, 2018 1:53pm ketorolac tromethamine 5 mg/ml ophthalmic solution (10 sources) Nonsteroidal Anti-inflammatory Drug, Cyclooxygenase Inhibitor Start: 12-07-2024 End: 01-23-2025 take 1 drop(s) into the eye(s) three times daily keTORolac (ACULAR) 0.5 % ophthalmic solution Use 1 Drop in the left eye three times a day. 12/07/2024 01/23/2025 Discontinued (Course of therapy completed) Start: 11-18-2024 End: 12-07-2024 take 1 drop(s) into the eye(s) four times daily keTORolac (ACULAR) 0.5 % ophthalmic solution Use 1 Drop in the left eye four times daily. 5 mL 2 11/18/2024 12/07/2024 Discontinued magnesium oxide 400 mg oral tablet (3 sources) Start: 08-07-2020 End: 08-07-2020 take 400 mg by mouth once daily Magnesium Oxide Discontinued 400 MG PO DAILY August 07, 2020 1:00am August 07, 2020 2:08pm 24 hr metoprolol succinate 25 mg extended release oral tablet (20 sources) beta-Adrenergic Veronika Start: 02-24-2017 End: 07-18-2019 take 25 mg by mouth once daily Metoprolol Succinate Discontinued 25 MG PO DAILY September 29, 2018 12:32pm July 18, 2019 1:05pm prednisoLONE acetate 10 mg/ml ophthalmic suspension (10 sources) Corticosteroid Start: 12-07-2024 End: 01-23-2025 prednisoLONE acetate (PRED FORTE) 1 % ophthalmic suspension Use 1 Drop in the left eye three times a day. 12/07/2024 01/23/2025 Discontinued (Course of therapy completed) Start: 11-18-2024 End: 12-07-2024 prednisoLONE acetate (PRED F ORTE) 1 % ophthalmic suspension Use 1 Drop in the left eye four times daily. 5 mL 2 11/18/2024 12/07/2024 Discontinued tetracaine hydrochloride 5 mg/ml ophthalmic solution (1 source) [facility] Local Anesthetic Start: 11-29-2024 End: 11-29-2024 take 1 dose into the eye(s) once 1 Drop, LEFT EYE, ONCE, 1 dose, On Thu11/29/24 at 1230, for the eye, Preprocedure Start: 11-29-2024 End: 11-29-2024 take 1 dose into the eye(s) once 1 Drop, LEFT EYE, ONCE, 1 dose, On Thu11/29/24 at 1230, for the eye, Preprocedure traMADol hydrochloride 50 mg oral tablet (3 sources) Opioid Agonist Start: 08-23-2020 End: 08-26-2020 take 50-100 mg by mouth every six hours as needed Tramadol Discontinued 50 - 100 MG PO EVERY 6 HOURS NEEDED 24 3 August 23, 2020 1:00am August 26, 2020 1:02am Zinc (3 sources) Start: 08-07-2020 End: 08-07-2020 take 50 mg by mouth once daily Zinc Discontinued 50 MG PO DAILY August 07, 2020 1:00am August 07, 2020 2:09pm Start: 08-07-2020 End: 08-07-2020 take 50 mg by mouth once daily Zinc Discontinued 50 MG PO DAILY August 07, 2020 12:00am August 07, 2020 1:09pm Problems Active Problems Problem Classification Problem Date Documented Da te Episodic/Chronic Administrative/social admission (4 sources) Patient encounter status; Translations: [Other specified counseling] 03-15-2024 Episodic Cardiac dysrhythmias (20 sources) Persistent atrial fibrillation; Translations: [Persistent atrial fibrillation] Onset: 03-04-2017 03-04-2017 Chronic Cataract (20 sources) Bilateral senile combined form cataracts of eyes; Translations: [Combined forms of age-related cataract, bilateral] Onset: 12-25-2015 Resolved: 11-29-2024 10-25-2024 Chronic Cataract (1 source) Cataract Onset: 02-01-2025 Chronic kidney disease (4 sources) Chronic kidney disease stage 3B ; Translations: [Stage 3b chronic kidney disease (Multi)] Onset: 03-15-2024 03-15-2024 Chronic Chronic kidney disease (2 sources) Chronic kidney disease; Translations: [Chronic kidney disease, stage 3b (Multi)] Onset: 03-15-2024 Deficiency and other anemia (1 source) Anemia; Translations: [Anemia, unspecified] 03-15-2024 Episodic Disorders of lipid metabolism (8 sources) Hyperlipidemia; Translations: [Hyperlipidemia, unspecified] Onset: 11-16-2024 12-15-2018 Chronic Essential hypertension (18 sources) Hypertensive disorder; Translations: [Essential hypertension] Onset: 03-04-2017 03-04-2017 Chronic Immunizations and screening for infectious disease (1 source) Vaccination needed; Translations: [Encounter for immunization] 03-15-2024 Episodic Other aftercare (3 sources) Drug therapy finding; Translations: [Other prison (current) drug therapy] 08-07-2020 Episodic Other eye disorders (14 sources) Bilateral vitreous floaters; Translations: [Other vitreous opacities, bilateral] Onset: 12-25-2015 10-25-2024 Chronic Other eye disorders (1 source) Posterior vitreous detachment of right eye; Translations: [Vitreous degeneration, right eye] 10-25-2024 Chronic Other eye disorders (2 sources) Constricted pupil; 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] 10-28-2024 Chronic Other eye disorders (8 sources) H/O: L cataract extraction; Translations: [Cataract extraction status, left eye] 11-30-2024 Episodic Other eye disorders (1 source) Epithelial basement membrane dystrophy; 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] 02-01-2025 Episodic Other eye disorders (1 source) Corneal endothelial dystrophy; 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] 02-01-2025 Episodic Other eye disorders (1 source) Cataract extraction status, left eye; Translations: [Status post cataract extraction and insertion of intraocular lens of left eye] Onset: 01-23-2025 Episodic Other non-traumatic joint disorders (1 source) Hip pain; Translations: [Hip pain, left] Episodic Other nutritional; endocrine; and metabolic disorders (7 sources) Body mass index (BMI) 35.0-35.9, adult; Translations: [Body mass index (BMI) 35.0-35.9, adult] Onset: 03-30-2017 03-30-2017 Chronic Other nutritional; endocrine; and metabolic disorders (3 sources) Obesity; Translations: [Obesity, unspecified] 08-13-2022 Chronic Other screening for suspected conditions (not mental disorders or infectious disease) (6 sources) Other specified abnormal findings of blood chemistry; Translations: [Encounter for screening for diabetes mellitus] Onset: 02-15-2024 Episodic Residual codes; unclassified (3 sources) Edema; Translations: [Edema, unspecified] 08-14-2022 Episodic Thyroid disorders (20 sources) Acquired hypothyroidism; Translations: [Hypothyroidism, unspecified] Onset: 03-15-2024 08-07-2020 Chronic Unclassified (12 sources) Drug therapy finding; Translations: [prison (current) use of anticoagulants] Onset: 03-04-2017 03-04-2017 Unclassified (9 sources) Long-term drug therapy; 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] Onset: 03-04-2017 03-04-2017 Unclassified (4 sources) Longstanding persistent atrial fibrillation; Translations: [Longstanding persistent atrial fibrillation (Multi)] Onset: 02-02-2024 Past or Other Problems Problem Classification Problem Date Documented Date Episodic/Chronic Allergic reactions (4 sources) Solar degeneration; Translations: [Other skin changes due to chronic exposure to nonionizing radiation] Onset: 02-02-2024 02-02-2024 Episodic Blindness and vision defects (20 sources) Regular astigmatism; Translations: [Regular astigmatism, unspecified eye] Onset: 12-25-2015 12-25-2015 Episodic Other aftercare (7 sources) Other prison (current) drug therapy; Translations: [Long-term (current) use of other medications] Onset: 03-04-2017 03-04-2017 Episodic Other lower respiratory disease (8 sources) Shortness of breath; Translations: [Dyspnea] Onset: 03-30-2017 03-30-2017 Episodic Residual codes; unclassified (8 sources) Edema of lower extremity; Translations: [Localized edema] Onset: 03-30-2017 03-30-2017 Episodic Residual codes; unclassified (3 sources) History of cardioversion; Translations: [Personal history of other medical treatment] Onset: 04-04-2017 08-13-2022 Episodic Residual codes; unclassified (3 sources) History of cardiac catheterization; Translations: [Other specified postprocedural states] Onset: 05-23-2017 11-09-2022 Episodic Unclassified (3 sources) Onset: 02-02-2024 Resolved: 03-16-2025 02-02-2024 NEGATED: Highlighted row has not occurred!Residual codes; unclassified (3 sources) Disease Episodic Results Test Name Value Interpretation Reference Range Facility ALBUMIN, RANDOM URINE W/CREA Jose 08-14-2025 ALBUMIN, URINE 1.7 mg/dL Normal See Note: [facility] Comment on above: Order Comment: FASTI NG:NO FASTING: NO Result Comment: Refe rence Range: Reference Range Not established Performed By: #### 8 99, [id number], [id number] #### [facility] [address], [address] [place] [address] Ground Transportation Operator: Max Moe MD ALBUMIN/CREATININE RATIO, RANDOM URINE 15 mg/g creat Normal <30 [facility] Comment on above: Order Comment: FASTI NG:NO FASTING: NO Result Comment: The ADA defines abnormalities in albumin excretion as follows: Albuminuria Category Result (mg/g creatinine) Normal to Mildly increased <30 Moderately increased 30-299 Severely increased > OR = 300 The ADA recommends that at least two of three specimens collected within a 3-6 month period be abnormal before considering a patient to be within a diagnostic category. Performed By: #### 8 99, [id number], [id number] #### [facility] [address], [address] [place] [address] Ground Transportation Operator: Max Moe MD Creatinine (U) [Mass/Vol] 112 mg/dL Normal 20-320 [facility] Comment on above: Order Comment: FASTI NG:NO FASTING: NO Performed By: #### 8 99, [id number], [id number] #### [facility] [address], [address] [place] [address] Ground Transportation Operator: Max Moe MD BASIC METABOLIC PANEL WITH A REED Magana 08-14-2025 BUN/CREATININE RATIO SEE NOTE: Normal -22 [facility] Comment on above: Result Comment: Not Reported: BUN and Creatinine are within reference range. Performed By: #### 8 99, [id number], [id number] #### [facility] [address], [address] [place] [address] Ground Transportation Operator: Max Moe MD Calcium [Mass/Vol] 8.8 mg/dL Normal 8.6-10.3 [facility] Comment on above: Performed By: #### 8 , [id number], [id number] #### [facility] of [address], [address] [place] [address] Ground Transportation Operator: Max Moe MD Chloride [Moles/Vol] 103 mmol/L Normal 98-110 [facility] Comment on above: Performed By: #### 8 , [id number], [id number] #### [facility] of [address], [address] [place] [address] Ground Transportation Operator: Max Moe MD CO2 [Moles/Vol] 25 mmol/L Normal 20-32 [facility] Comment on above: Performed By: #### 8 , [id number], [id number] #### [facility] of [place] [address] Ground Transportation Operator: Max Moe MD Creatinine [Mass/Vol] 1.07 mg/dL Normal 0.70-1.[address] [facility] Comment on above: Performed By: #### 8 , [id number], [id number] #### [facility] [place] [address] Ground Transportation Operator: Max Moe MD ELECTROLYTE BALANCE 10 mmol/L (calc) Normal 7-17 [facility] Comment on above: Performed By: #### 8 , [id number], [id number] #### [facility] of [place] [address] Ground Transportation Operator: Max Moe MD GFR/1.73 sq M.predicted among non-blacks MDRD (S/P/Bld) [Vol rate/Area] 70 mL/min/{1.73_m2} Normal > OR = 60 [facility] Comment on above: Performed By: #### 8 , [id number], 6517 #### [facility] of [place] [address] Ground Transportation Operator: Max Moe MD Glucose [Mass/Vol] 79 mg/dL Normal 65-139 [facility] Comment on above: Result Comment: Non-fasting reference interval This amended report is issued due to a previously reported incorrect reference range on the original report. There is no change in the flagging of the result. PLEASE DISREGARD PREVIOUSLY REPORTED INFORMATION BELOW: (The information below was originally reported on 03/17/2025 at 5:01 AM) GLUCOSE 79 Fasting reference interval Performed By: #### 8 99, [id number], 6517 #### [facility] [address], [address] [place] [address] Ground Transportation Operator: Max Moe MD Potassium [Moles/Vol] 5.0 mmol/L Normal 3.5-5.[address] [facility] Comment on above: Performed By: #### 8 99, [id number], 6517 #### [facility] [place] [address] Ground Transportation Operator: Max Moe MD Sodium [Moles/Vol] 138 mmol/L Normal 135-146 [facility] Comment on above: Performed By: #### 8 99, [id number], 6517 #### [facility] [place] [address] Ground Transportation Operator: Max Moe MD Urea nitrogen [Mass/Vol] 24 mg/dL Normal 7-25 [facility] Comment on above: Performed By: #### 8 99, 63663, 6517 #### [facility] [place] [address] Ground Transportation Operator: Max Moe MD TSHon 08-14-2025 TSH Qn 5.84 m[IU]/L High 0.40-4.50 [facility] Comment on above: Performed By: #### 8 99, 97036, 6517 #### [facility] [place] [address] Ground Transportation Operator: Max Moe MD IOL BIOMETRY W/ IOL CALC OD (RIGHT EYE)on 03-22-2025 [facility] Radiology Study observation (narrative) [facility] OCT MACULA CIRRUS OU (BOTH E YES)on 01-23-2025 [facility] Radiology Study observation (narrative) [facility] ANES POSTPROC EVALon 025 ANES POSTPROC EVAL HNO ID: [id number] Author: IONA CHAPARRO MD Service: Anesthesiology Author Type: Physician Type: Anesthesia Postprocedure Evaluation Filed: 11/29/2024 13:50 Note Text: POST ANESTHESIA EVALUATION NOTE : 1945 Procedure Summary Date: 11/29/24 Room / Location: LD OR LD OR Anesthesia Start: 1313 Anesthesia Stop: Procedures: PHACOEMULSIFICATION CATARACT IMPLANT INTRAOCULAR LENS W/O ENDOSCOPIC CYCLOPHOTOCOAGULATION (Left: Eye) OPHTHALMIC BIOMETRY BY PARTIAL COHERENCE INTERFEROMETRY W/INTRAOCULAR LENS POWER CALCULATION (Left: Eye) Diagnosis: Combined forms of age-related cataract of left eye (Combined forms of age-related cataract of left eye [H25.812]) Surgeons: Brian Griffith MD Responsible Provider: Iona Chaparro MD Anesthesia Type: MAC ASA Status: 3 Anesthesia Type: MAC Last Vitals Vitals Value Taken Time BP 118/76 11/29/24 1345 Temp 100% 11/29/24 1349 Pulse 70 11/29/24 1348 Resp 15 11/29/24 1348 SpO2 98 % 11/29/24 1348 Vitals shown include unfiled device data. Post Anesthesia Patient Status Patient Evaluation: bedside. Anticipated Disposition: phase 2 then home. Neurological Status: aware and responsive. Pulmonary Status: breathing comfortably on room air Airway Control: returned to baseline unsupported. Cardiovascular Status: stable. Pain Management: clinically adequate Postoperative Hydration: acceptable. Intraoperative Events: no significant anesthesia events Post Operative Nausea/Vomiting Status: no significant post operative nausea or vomiting Recommendation: continue current plan of care. Anesthesia Observations No Documentation SIGNATURE: Iona Chaparro MD PATIENT NAME: Magali Ramos DATE: November 29, 2024 TIME: 1:49 PM CSN: [id number] [facility] ANES PRE-OPon 11-29-2024 ANES PRE-OP HNO ID: [id number] Author: IONA CHAPARRO MD Service: Anesthesiology Author Type: Physician Type: Anesthesia Preprocedure Evaluation Filed: 11/29/2024 13:09 Note Text: ANESTHESIOLOGY DAY OF SURGERY NOTE : 1945 Procedure Information Date/Time: 11/29/24 1400 Procedures: PHACOEMULSIFICATION CATARACT IMPLANT INTRAOCULAR LENS W/O ENDOSCOPIC CYCLOPHOTOCOAGULATION (Left: Eye) OPHTHALMIC BIOMETRY BY PARTIAL COHERENCE INTERFEROMETRY W/INTRAOCULAR LENS POWER CALCULATION (Left: Eye) Location: OR / OR Surgeons: Brian Griffith MD Estimated body mass index is 30.7 kg/m? as calculated from the following: Height as of this encounter: 170.2 cm (5' 7"). Weight as of this encounter: 88.9 kg (196 lb). Most recent hematocrit and potassium results: No results found for this basename: HCT,HEMATOCRIT,K,POTASS IUM Relevant Problems ENDO (+) Hypothyroidism I - PHYSICAL EVALUATION AIRWAY Patient intubated: No. Tracheostomy tube not present Mallampati: II. TM distance: >3 FB. Neck ROM: full ROM without neurological symptoms. Mouth opening: adequate. Short neck: no. Thick neck: yes [place]utherland present: no Microretrognathia/Micro nagthia/Recessed Chin: No DENTAL Dentures, upper: partial. Dentures, lower: partial. Additional exam findings: yes. CARDIOVASCULAR Normal cardiovascular observations. PULMONARY Normal pulmonary observations. II - ANESTHESIA PLAN ASA Score: 3 Anesthetic Plan: MAC The patient is not a current smoker. NPO Status: adequate Beta Veronika Monitoring Plan Monitoring plan: standard ASA. Post Procedure Analgesic Plan Postoperative analgesic plan: parenteral or oral opioids. Informed Consent Anesthetic risks, benefits, alternatives, personnel and consent discussed: yes. Patient / Responsible [employer] agrees to proceed: yes Patient / Surrogate agrees to blood products: Yes DNR status not reviewed with patient and/or family prior to surgery. Significant changes in the patient condition since the History and Physical, not otherwise documented in primary service progress note: no. Potential Anesthesia issues that may suggest increased risk of complications or contraindication to planned procedure: none. Vitals Value Taken Time BP 138/78 11/29/24 1224 Pulse 75 11/29/24 1224 Resp 16 11/29/24 1224 Temp 36.4 ?C (97.6 ?F) 11/29/24 1224 SpO2 100 % 11/29/24 1224 Facility-Administered Medications as of 11/29/2024 Medication Dose Route Frequency - lactated ringers iv infusion 30 mL/hr INTRAVENOUS CONTINUOUS - [COMPLETED] cyclopentolate 1%-tropicamide 1%-PHENYLephrine 2.5% ophthalmic drops 1 Drop LEFT EYE q 5 MIN - lidocaine 1%-PHENYLephrine 1.5% intraocular injection 2 mL LEFT EYE ONCE - moxifloxacin intraocular injection 5 mg/mL (PF) 0.1 mL LEFT EYE ONCE - [COMPLETED] tetracaine (PF) 0.5 % 1 Drop (OPTICAINE) 1 Drop LEFT EYE ONCE Outpatient Medications as of 11/29/2024 Medication Sig - levothyroxine (SYNTHROID) 25 mcg tablet - rosuvastatin (CRESTOR) 5 mg tablet Take 5 mg by mouth once daily. - fluorometholone (FML LIQUID FILM) 0.1 % ophthalmic suspension Use 1 Drop in both eyes three times a day. - XARELTO 20 mg tablet - losartan (COZAAR) 25 mg tablet - prednisoLONE acetate (PRED FORTE) 1 % ophthalmic suspension Use 1 Drop in the left eye four times daily. - keTORolac (ACULAR) 0.5 % ophthalmic solution Use 1 Drop in the left eye four times daily. - cholecalciferol (VITAMIN D3) 1,000 unit tab tablet Take by mouth. (Patient not taking: Reported on 11/23/2024) - amiodarone (PACERONE) 200 mg tablet (Patient not taking: Reported on 11/23/2024) I have interviewed and examined the patient. I have reviewed the medical record and/or the pre-anesthesia evaluation, pertinent labs, and test results. This contains updated information obtained within 48 hours of Surgery/Procedure. SIGNATURE: Iona Chaparro MD PATIENT NAME: Magali Ramos DATE: November 29, 2024 TIME: 1:08 PM CSN: [id number] [facility] OPERATIVE NOon 11-29-2024 OPERATIVE NO HNO ID: [id number] Author: BRIAN GRIFFITH MD Service: Ophthalmology Author Type: Physician Type: Operative Report Filed: 11/29/2024 13:52 Note Text: [place] [address] [place] OPERATIVE REPORT LOG ID: [id number] Surgery/Procedure Date: 11/29/2024 Incision/Procedure Start Time: 1:23 PM Incision Close/Procedure End Time: 1:39 PM NAME: Magali Ramos [facility] #: [id number] Surgeon(s)/Proceduralis t(s) and Retail Account Manager(s): Surgeons and Role: * Brian Griffith MD - Primary ANESTHESIA: Monitored Anesthesia Care OPERATIONS: Phacoemulsification with Posterior Chamber Lens Implant Left eye. 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 OPERATIVE INDICATIONS: Patient positive for blurred vision, difficulty reading, driving, watching TV and complaints of glare. OPERATIVE PROCEDURE: The patient was brought to the operating room and given combined anesthesia with IV sedation. The operative eye was prepped and draped in the usual sterile manner. Betadine ophthalmic solution was instilled into the conjunctival sac and left in place for 3 minutes. The eyelids were retracted with Ghada locking wire speculum. Conjunctival sac was irrigated with the help of balanced salt solution. A paracentesis incision was made approximately 30? away from the planned surgical incision site with the help of MVR blade. 1% lidocaine MPF was injected through the paracentesis incision. A near limbal clear corneal incision was fashioned in the temporal quadrant just outside the vascular arcade with the help of slit blade and Viscoat was instilled into the anterior chamber to firm the eye. Under Viscoat cover, a circular continuous tear capsulorrhexis was made by using coaxial capsulorrhexis process. Hydrodissection and hydrodelineation of the cataract was then done with balanced salt solution. The phacoemulsifier was tested and found to be operating properly. The cataractous lens nucleus was then extracted using phacoemulsification in the capsular bag. Residual cortex was then aspirated by using soft-tipped irrigation aspiration cannula. The posterior capsule was then polished with the help of irrigation aspiration tip. The anterior chamber and the capsular bag were filled with viscoelastic. The intraocular lens was taken from its sterile wrapping, inspected under the surgical microscope and found to be in good condition. The pre-loaded IOL was injected into the capsular bag under the viscoelastic. The lens implant was then rotated until the optic was well centered. The residual viscoelastic was then removed from the capsular bag and the anterior chamber, using the soft-tipped irrigation aspiration cannula. The anterior chamber was formed with BSS and Vigamox was injected into the capsul bag and behind the iris through the side port incision. ? At the end of the procedure, the edges of the incision were hydrated by using balanced salt solution. Anterior chamber was inflated with the help of BSS to moderate tension. The surgical incisions were then inspected and found to be water-tight. The eyelid speculum was removed. Betadine ophthalmic solution was instilled into the conjunctival sac. The patient tolerated the procedure well and left the operating room in good condition. I have reviewed the images and report on 11/29/2024 from the Ophthalmic Biometry to determine the Intraocular lens Power Calculation for the IOL lens implant. I have interpreted and agree with the calculation of the IOL as listed below. Implant Name Type Inv. Item Serial No. Hand Gluer And Slicer Lot No. LRB No. Used Action Model No. [id number] [employer] - [id number] Intraocular Lens [id number] [employer] [id number] [employer] Left 1 Implanted [id number] Estimated Blood Loss: None Specimens: None Drains: None Complications: None Participation: I/primary surgeon/proceduralist performed the entire procedure. Brian Griffith M..D. 11/29/2024 , 1:49 PM Normal [facility] HISTORY PHYSICALon HISTORY PHYSICAL HNO ID: [id number] Author: BRIAN GRIFFITH MD Service: ? 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 No pertinent surgical history. FAMILY HISTORY Problem Relation Age of Onset Heart Mother Diabetes Mother No Ocular Disease No Family History SOCIAL HISTORY: Social History Tobacco Use Smoking status: Never Smokeless tobacco: Never Vaping Use Vaping status: Never Used Substance Use Topics Alcohol use: No Drug use: No MEDICATIONS: Prior to Admission medications as of 11/18/24 0959 Medication Sig Last Dose Taking levothyroxine (SYNTHROID) 25 mcg tablet Take 1 tablet (25 mcg) by mouth early in the morning.. Take on an empty stomach at the same time each day, either 30 to 60 minutes prior to breakfast Yes rosuvastatin (CRESTOR) 5 mg tablet Take 5 mg by mouth once daily. Yes fluorometholone (FML LIQUID FILM) 0.1 % ophthalmic suspension Use 1 Drop in both eyes three times a day. Yes cholecalciferol (VITAMIN D3) 1,000 unit tab tablet Take by mouth. Yes XARELTO 20 mg tablet Yes amiodarone (PACERONE) 200 mg tablet Yes losartan (COZAAR) 25 mg tablet Yes prednisoLONE acetate (PRED FORTE) 1 % ophthalmic suspension Use 1 Drop in the left eye four times daily. keTORolac (ACULAR) 0.5 % ophthalmic solution Use 1 Drop in the left eye four times daily. No medication comments found. CURRENT ALLERGIES: ALLERGIES No Known Allergies REVIEW OF SYSTEMS: PAIN ASSESSMENT: General: No weight loss, malaise or fevers. Neuro: No Hx of stroke or seizures Respiratory: No history of current cough or dyspnea, or pneumonia in the past 6 weeks. No history of respiratory/pulmonary symptoms or problems Cardiovascular: Positive for: Afib/Aflutter GI: No history of GI symptoms or problems. No history of esophageal varices, recent ascites, or ETOH greater than 2 drinks per day. : No history of UTI in past 6 weeks. No history of renal failure. Not currently on or requiring dialysis. No history of symptoms or problems. PULP GRINDER FEEDER: N/A : N/A Endocrine: No history of diabetes. Has not taken steroids within the past 30 days. No history of endocrinological symptoms or problems. Hematology: No history of bleeding or clotting disorder. Pt is not taking anti-coagulation or platelet medications. No history of hematological symptoms or problems. Oncology: No history of CA metastasis, chemo within 30 days, or radiotherapy within 90 days. Has not lost 10% of body wt in 6 months. No history of oncological symptoms or problems. Psych: No history of psychiatric symptoms or problems. Musculoskeletal: Negative for joint pain or swelling, back pain or muscle pain. Skin: Negative for lesions, rash and itching. PHYSICAL EXAM: VITALS: BP 121/81 Pulse 78 General: Alert and oriented Skin: Normal color, no rash, no lesions. HEENT: EOM, pupils equal, round and reactive. Cardiovascular: Normal S1 AND S2, no rubs, murmurs or gallops. No JVD. Pulse regular. Lungs: Normal breath sounds, no wheezes or crackles. Abdomen: Soft, non-tender, no rigidity. Extremities: No deformity, no edema or tenderness, no joint swelling or clubbing. Neurological: Normal cognition and motor skills. Pulses: Carotid and radial pulses normal +2. Diagnostic tests reviewed for today's visit: Following tests done at outside facility: records reviewed, EKG . ASSESSMENT Medication and Non-Pharmacologic VTE Prophylaxis/Anticoagula nts VTE Prophylaxis: VTE prophylaxis appropriate Impression: There is no known pertinent medical condition which may affect austyn-operative course Clinical Risk Factors for Possible Cardiac Complications: None Patient is scheduled for a low-risk procedure. FUNCTIONAL STATUS: Walk indoors, such as around the house (1.75 METs) Do light work around the house, such as dusting or washing dishes (2.70 METs) Take care of self, that is eating, dressing, bathing, using the toilet (2.75 METs) Functional Class (NYHA): N/A [facility]: Not obtained PLAN CONSULTS: Patient does not require consults for optimization at this time. The Following Tests/Procedures Have Been Initiated: None Instructions Given to Patient: Patient given verbal and written preop instruction (more content not included)... Normal [facility] IOL BIOMETRY W/ IOL CALC OU (BOTH EYES)on 11-18-2024 [facility] Radiology Study observation (narrative) [facility] 12 Lead EKG performed by [facility] on 11-16-2024 12 Lead EKG performed by [facility] [address] [place] [address] 12 Lead EKG performed by [facility] 11/16/24912 MR#: [id number] Acct: [id number] Name: MAGALI RAMOS Rep #: [id number] : 1945 79 From: [place] SILVER Attending Dr: NADEEM Ceballos Status: REG AM B Ordering Dr: Vernon Bills Date: 11/16/24 Location[place] [facility] Sex: M C Admitted: BMS/12 Lead EKG performed by [facility] ECG Report Interpretation ---Atrial fibrillation ABNORMAL RHYTHMElectronically signed on 11/16/2024 at 09:40 by Bubba Nag[employer]wood Software Version 8610 11/16/24943 Date Vernon SILVER CC: Date Dictated: 11/16/24912 Date Transcribed: 11/16/24912 Rn Imcu: DEMARCO Signed Normal [facility] Basic Metabolic Profile (BMP )on 11-16-2024 BUN/CRE 19.3 RATIO Normal 10-20 [facility] Comment on above: Performed By: #### L 500.2500, L501.9520, L500.4100 #### [facility] [address] [place], [address] CA,Total 8.7 mg/dL Normal 8.5-10.1 [facility] Comment on above: Performed By: #### L 500.2500, L501.9520, L500.4100 #### [facility] [address] [place], [address] Chloride [Moles/Vol] 106 mmol/L Normal 98-107 [facility] Comment on above: Performed By: #### L 500.2500, L501.9520, L500.4100 #### [facility] [address] [place], [address] CO2 [Moles/Vol] 24.0 mmol/L Normal 21.0-32.0 [facility] Comment on above: Performed By: #### L 500.2500, L501.9520, L500.4100 #### [facility] [address] [place], [address] Creatinine [Mass/Vol] 1.14 mg/dL Normal 0.70-1.30 [facility] Comment on above: Result Comment: The validity of the calculated GFR GFRAA in patients over 70 years has not been determined. Clinical correlation is essential. Performed By: #### L 500.2500, L501.9520, L500.4100 #### [facility] [address] [place], [address] EST GFR - AA 79 mL/min Normal >60 [facility] Comment on above: Result Comment: Afri can Italian GFR Calc Performed By: #### L 500.2500, L501.9520, L500.4100 #### [facility] [address] [place], [address] GAP 7 Normal 5-15 [facility] Comment on above: Performed By: #### L 500.2500, L501.9520, L500.4100 #### [facility] [address] [place], [address] GFR/1.73 sq M.predicted among non-blacks MDRD (S/P/Bld) [Vol rate/Area] 66 mL/min/{1.73_m2} Normal >60 [facility] Comment on above: Result Comment: Non- GFR Calc Performed By: #### L 500.2500, L501.9520, L500.4100 #### [facility] [address] [place], [address] Glucose [Mass/Vol] 91 mg/dL Normal 74-106 [facility] Comment on above: Performed By: #### L 500.2500, L501.9520, L500.4100 #### [facility] [address] [place], [address] Potassium [Moles/Vol] 4.1 mmol/L Normal 3.5-5.1 [facility] Comment on above: Performed By: #### L 500.2500, L501.9520, L500.4100 #### [facility] [address] [place], [address] Sodium [Moles/Vol] 137 mmol/L Normal 136-145 [facility] Comment on above: Performed By: #### L 500.2500, L501.9520, L500.4100 #### [facility] [address] [place], [address] Urea nitrogen [Mass/Vol] 22 mg/dL High 7-18 [facility] Comment on above: Performed By: #### L 500.2500, L501.9520, L500.4100 #### [facility] [address] [place], [address] Cardiology Visit Reporton Cardiology Visit Report [facility] [address] [place], [place] [address] OFFICE VISIT Date of Service: 11/16/24 MR#: [id number] Acct: [id number] Name: MAGALI RAMOS Rep #: [id number] : 1945 Provider: NADEEM Ceballos Age/Sex: 79/M Location: [facility] Status: Signed HPI HPI History of Present Illness Details: MAGALI RAMOS, is a 79 M who presents today for a cardiovascular outpatient follow-up and cardiac clearance for cataract surgery planned for 11/29/2024. He has a history of hypertension, mild pulmonary hypertension, paroxysmal atrial fibrillation status post elective cardioversion in March 2017 and April 2017, and hyperlipidemia. Since last seen, 10/14/2023, patient had completed monitoring imaging and lab work for being on amiodarone. His TSH was elevated in which patient was instructed to decrease amiodarone dose and repeat TSH. Repeat TSH remained elevated and patient's amiodarone was discontinued. Patient was instructed to follow-up with PCP as TSH remained elevated despite discontinuation of amiodarone. Patient was also instructed to monitor heart rate and monitor for symptoms of atrial fibrillation off of medication. Patient reports heart rates are usually in the 50s???60s at home and denies noticing that he is in atrial fibrillation. Patient denied palpitations, shortness of breath, syncope, or near syncope. Patient with history of HTN, not currently on any medication for management of HTN. Patient reports home BP readings around 115???120/70s. Initial BP measurement here in the office was 133/93, repeat with manual cuff revealed BP of 128/80. From a cardiac standpoint, the patient reports doing well. Patient reports occasional episodes of fatigue and shortness of breath when overexerting himself in which he just needs to slow down and take a break and symptoms resolve. Patient reports these episodes are very infrequent and have not changed over the past 1 year. [place] and is able to manage his daily activities and work without concern. Patient with no other concerns at this time. Further ROS below. Intake Vital Signs 10/14/23 09:16 11/16/24 09:10 11/16/24 09:45 11/16/24 10:36 Height 5 ft 8 in 5 ft 8 in 5 ft 8 in Weight: 196 lb BMI 29.7 BP 133/93 H 128/80 H Blood Pressure Location Lt brachial Position Sitting Respiration 18 Pulse 72 Pulse Source Monitor Intake Visit Reasons: 1 Y FU Admissions Coordinator Required: No Accompanied by: Is patient in pain?: No Allergies No Known Allergies Allergy (Verified 11/16/24 09:10) Medications ???Medication ???Instructions ???Recorded ???Confirmed ???Type rosuvastatin 5 mg tablet 5 mg PO DAILY #90 tabs 05/05/24 Rx levothyroxine 25 mcg capsule 25 mcg PO QDAY 11/16/24 11/16/24 H istory rivaroxaban 20 mg tablet 20 mg PO QDAY #90 tabs 11/16/24 Rx Ejection fraction %: 65 Have you fallen in the past year?: Yes (tripped over item, happened over the summer) PFSH Medical History Paroxysmal atrial fibrillation Osteoarthritis Hypothyroidism (acquired) Essential hypertension prison current use of amiodarone Hyperlipidemia Obesity Surgical History History of right knee joint replacement (01/2019) History of left heart catheterization (02/24/17) History of cardioversion (04/2017) Family History Mother CAD (coronary artery disease) Sudden cardiac Social History Smoking Status: Never smoker alcohol intake: never substance use type: does not use caffeine: No ROS Const Const: Negative for fatigue, weakness, headache(s) or frequent falls Eyes Eyes: Positive for blurry vision (cataracts); Negative for change in vision ENT ENT: Negative for headache(s), dizziness or Nosebleed/epistaxis Cardio Chest Pain: No Palpitations: No Edema: None Muscle aches with walking: None Additional Details: negative chest discomfort, heaviness, or tightness Resp Respiratory: Positive for SOB with activity (higher strenuous activity); Negative for SOB at rest, SOB orthopnea SOB lying down, Coughing up blood/hemoptysis or wheezing GI GI: Negative nausea, vomiting, bright, red blood in stools, black,tarry stools or loose stools : Negative for hematuria Musc Musc: Negative for muscle aches/ myalgia Neuro Neuro: Positive for blurry vision (cataracts); Negative for dizziness, frequent falls, headache(s) or weakness Endo Endo: Negative for fatigue Cardiology Exam Const Appearance: no acute distress and well developed; Negative diaphoretic or ill appearing Orientation: aler (more content not included)... Normal [facility] Lipid Profileon 11-16-2024 Cholesterol [Mass/Vol] 148 mg/dL Normal 200 [facility] Comment on above: Result Comment: <200 mg/dL Desirable 200-240 mg/dL Borderline >240 mg/dL High Risk Performed By: #### L 500.2500, L501.2489, L500.1680 #### [facility] [address] [place], [address] Cholesterol in HDL [Mass/Vol] 53 mg/dL Normal [facility] Comment on above: Result Comment: The drugs N-Acetylcysteine and Metamizole may falsely depress this assay. Reference Range HDL <40 mg/dL Low HDL Cholesterol HDL >or= 60 mg/dL High HDL Cholesterol Performed By: #### L 500.2500, L501.9520, L500.4100 #### [facility] [address] [place], [address] Cholesterol in LDL [Mass/Vol] 81 mg/dL Normal 0-130 [facility] Comment on above: Performed By: #### L 500.2500, L501.9520, L500.4100 #### [facility] [address] [place], [address] Cholesterol in VLDL [Mass/Vol] 14 mg/dL Normal 5-40 [facility] Comment on above: Performed By: #### L 500.2500, L501.9520, L500.4100 #### [facility] [address] [place], [address] Triglyceride [Mass/Vol] 71 mg/dL Normal [facility] Comment on above: Result Comment: The drugs N-Acetylcysteine and Metamizole may falsely depress this assay. Serum Triglycerides Reference Interval Normal <150 mg/dL Borderline high 150 - 199 mg/dL High 200 - 499 mg/dL Very High > or = 500 mg/dL Performed By: #### L 500.2500, L501.9520, L500.4100 #### [facility] [address] [place], [address] Thyroid Stim Hormone (TSH)on 11-16-2024 TSH 8.400 uIU/mL High 0.358-3.740 [facility] Comment on above: Performed By: #### L 500.2500, L501.9520, L500.4100 #### [facility] [address] [place], [address] IOL BIOMETRY W/ IOL CALC OU (BOTH EYES)on 10-28-2024 [facility] Radiology Study observation (narrative) [facility] OCT MACULA CIRRUS OU (BOTH E YES)on 10-28-2024 [facility] Radiology Study observation (narrative) [facility] Comprehensive metabolic 2000 panelon 04-27-2024 Albumin BCP dye [Mass/Vol] 3.7 g/dL Normal 3.4-5.0 [facility] Comment on above: Performed By: #### 2 4323-8 #### NAIMA ZAMARRIPA ([id number]) [facility] ([facility]) [address] [place] [address] 46187 ALP [Catalytic activity/Vol] 62 U/L Normal 33-136 [facility] Comment on above: Performed By: #### 2 4323-8 #### NAIMA ZAMARRIPA ([id number]) [facility] ([facility]) [address] [place] [address] 23380 ALT With P-5'-P [Catalytic activity/Vol] 8 U/L Low 10-52 [facility] Comment on above: Result Comment: Darcie ents treated with Sulfasalazine may generate falsely decreased results for ALT. Performed By: #### 2 4323-8 #### NAIMA ZAMARRIPA ([id number]) [facility] ([facility]) [address] [place] [address] Anion gap [Moles/Vol] 13 mmol/L Normal 10-20 [facility] Comment on above: Performed By: #### 2 4323-8 #### NAIMA ZAMARRIPA ([id number]) [facility] ([facility]) [address] [place] [address] 53267 AST With P-5'-P [Catalytic activity/Vol] 16 U/L Normal 9-39 [facility] Comment on above: Performed By: #### 2 4323-8 #### NAIMA ZAMARRIPA ([id number]) [facility] ([facility]) [facility] [place] [address] Bilirubin [Mass/Vol] 0.7 mg/dL Normal 0.0-1.2 [facility] Comment on above: Performed By: #### 2 4323-8 #### NAIMA ZAMARRIPA ([id number]) [facility] ([facility]) [address] [place] [address] 18887 Calcium [Mass/Vol] 8.5 mg/dL Low 8.6-10.3 [facility] Comment on above: Performed By: #### 2 4323-8 #### NAIMA ZAMARRIAP ([id number]) [facility] ([facility]) [facility] [place] [address] Chloride [Moles/Vol] 105 mmol/L Normal 98-107 [facility] Comment on above: Performed By: #### 2 4323-8 #### NAIMA ZAMARRIPA ([id number]) [facility] ([facility]) [address] [place] [address] 21313 CO2 [Moles/Vol] 26 mmol/L Normal 21-32 [facility] Comment on above: Performed By: #### 2 4323-8 #### NAIMA ZAMARRIPA ([id number]) [facility] ([facility]) [address] [place] [address] 13974 Creatinine [Mass/Vol] 1.36 mg/dL High 0.50-1.30 [facility] Comment on above: Performed By: #### 2 4323-8 #### NAIMA ZAMARRIPA ([id number]) [facility] ([facility]) [address] [place] [address] 03328 Glomerular filtration rate/1.73 sq M.predicted 53 mL/min/1.73m*2 Low >60 [facility] Comment on above: Result Comment: Calc ulations of estimated GFR are performed using the 2020 CKD-EPI Study Refit equation without the race variable for the IDMS-Traceable creatinine methods. https://jasn.asnjournals.org/content/early//ASN.864480 5459 Performed By: #### 2 4323-8 #### NAIMA ZAMARRIPA ([id number]) [facility] ([facility]) [address] [place] [address] 15494 Glucose [Mass/Vol] 79 mg/dL Normal 74-99 [facility] Comment on above: Performed By: #### 2 4323-8 #### NAIMA ZAMARRIPA ([id number]) [facility] ([facility]) [address] [place] [address] Potassium [Moles/Vol] 4.6 mmol/L Normal 3.5-5.3 [facility] Comment on above: Performed By: #### 2 4323-8 #### NAIMA ZAMARRIPA ([id number]) [facility] ([facility]) [address] [place] [address] Protein [Mass/Vol] 6.9 g/dL Normal 6.4-8.2 [facility] Comment on above: Performed By: #### 2 4323-8 #### NAIMA ZAMARRIPA ([id number]) [facility] ([facility]) [address] [place] [address] Sodium [Moles/Vol] 139 mmol/L Normal 136-145 [facility] Comment on above: Performed By: #### 2 4323-8 #### NAIMA ZAMARRIPA ([id number]) [facility] ([facility]) [address] [place] [address] Urea nitrogen [Mass/Vol] 29 mg/dL High 6-23 [facility] Comment on above: Performed By: #### 2 4323-8 #### NAIMA ZAMARRIPA ([id number]) [facility] ([facility]) [address] [place] [address] Thyrotropinon 04-27-2024 TSH Qn 0.40 m[IU]/L Low 0.44-3.98 [facility] Comment on above: Order Comment: TSH t esting is performed using different testing methodology at [facility] than at other [facility]. Direct result comparisons should only be made within the same method. Performed By: #### 3 016-3 #### NAIMA ZAMARRIPA ([id number]) [facility] ([facility]) [address] [place] [address] CBC W Auto Differential pane l (Bld)on 02-15-2024 Basophils (Bld) [#/Vol] 0.03 x10*3/uL Normal 0.00-0.10 [facility] Comment on above: Performed By: #### 5 7021-8 #### NAIMA ZAMARRIPA ([id number]) [facility] ([facility]) [address] [place] [address] 94387 Basophils/100 WBC (Bld) 0.4 % Normal 0.0-2.0 [facility] Comment on above: Performed By: #### 5 7021-8 #### NAIMA ZAMARRIPA ([id number]) [facility] ([facility]) [address] [place] [address] 91405 Eosinophils (Bld) [#/Vol] 0.17 x10*3/uL Normal 0.00-0.40 [facility] Comment on above: Performed By: #### 7021-8 #### NAIMA ZAMARRIPA ([id number]) [facility] ([facility]) [address] [place] [address] 91734 Eosinophils/100 WBC (Bld) 2.1 % Normal 0.0-6.0 [facility] Comment on above: Performed By: #### 7021-8 #### NAIMA ZAMARRIPA ([id number]) [facility] ([facility]) [address] [place] [address] 98918 Erythrocyte distribution width (RBC) [Ratio] 14.0 % Normal 11.5-14.5 [facility] Comment on above: Performed By: #### 5 7021-8 #### NAIMA ZAMARRIPA ([id number]) [facility] ([facility]) [address] [place] [address] 76639 Hematocrit (Bld) [Volume fraction] 39.0 % Low 41.0-52.0 [facility] Comment on above: Performed By: #### 5 7021-8 #### NAIMA ZAMARRIPA ([id number]) [facility] ([facility]) [address] [place] [address] 47798 Hemoglobin (Bld) [Mass/Vol] 12.1 g/dL Low 13.5-17.5 [facility] Comment on above: Performed By: #### 5 7021-8 #### NAIMA ZAMARRIPA ([id number]) [facility] ([facility]) [address] [place] [address] 94717 Immature granulocytes (Bld) [#/Vol] 0.03 x10*3/uL Normal 0.00-0.50 [facility] Comment on above: Performed By: #### 5 7021-8 #### NAIMA ZAMARRIPA ([id number]) [facility] ([facility]) [address] [place] [address] 17034 Immature granulocytes/100 WBC (Bld) 0.4 % Normal 0.0-0.9 [facility] Comment on above: Result Comment: Jacquelin ture Granulocyte Count (IG) includes promyelocytes, myelocytes and metamyelocytes but does not include bands. Percent differential counts (%) should be interpreted in the context of the absolute cell counts (cells/UL). Performed By: #### 5 7021-8 #### NAIMA ZAMARRIPA ([id number]) [facility] ([facility]) [address] [place] [address] 94589 Lymphocytes (Bld) [#/Vol] 1.05 x10*3/uL Normal 0.80-3.00 [facility] Comment on above: Performed By: #### 5 7021-8 #### NAIMA ZAMARRIPA ([id number]) [facility] ([facility]) [address] [place] [address] 69529 Lymphocytes/100 WBC (Bld) 12.7 % Normal 13.0-44.0 [facility] Comment on above: Performed By: #### 5 7021-8 #### NAIMA ZAMARRIPA ([id number]) [facility] ([facility]) [address] [place] [address] 54044 MCH (RBC) [Entitic mass] 31.2 pg Normal 26.0-34.0 [facility] Comment on above: Performed By: #### 5 7021-8 #### NAIMA ZAMARRIPA ([id number]) [facility] ([facility]) [address] [place] [address] 08287 MCHC (RBC) [Mass/Vol] 31.0 g/dL Low 32.0-36.0 [facility] Comment on above: Performed By: #### 5 7021-8 #### NAIMA ZAMARRIPA ([id number]) [facility] ([facility]) [address] [place] [address] 97837 MCV (RBC) [Entitic vol] 101 fL High 80-100 [facility] Comment on above: Performed By: #### 5 7021-8 #### NAIMA ZAMARRIPA ([id number]) [facility] ([facility]) [address] [place] [address] 33505 Monocytes (Bld) [#/Vol] 0.56 x10*3/uL Normal 0.05-0.80 [facility] Comment on above: Performed By: #### 5 7021-8 #### NAIMA ZAMARRIPA ([id number]) [facility] ([facility]) [address] [place] [address] 15012 Monocytes/100 WBC (Bld) 6.8 % Normal 2.0-10.0 [facility] Comment on above: Performed By: #### 5 7021-8 #### NAIMA ZAMARRIPA ([id number]) [facility] ([facility]) [address] [place] [address] 23095 Neutrophils (Bld) [#/Vol] 6.42 x10*3/uL High 1.60-5.50 [facility] Comment on above: Result Comment: Perc ent differential counts (%) should be interpreted in the context of the absolute cell counts (cells/uL). Performed By: #### 5 7021-8 #### NAIMA ZAMARRIPA ([id number]) [facility] ([facility]) [address] [place] [address] 30787 Neutrophils/100 WBC (Bld) 77.6 % Normal 40.0-80.0 [facility] Comment on above: Performed By: #### 5 7021-8 #### NAIMA ZAMARRIPA ([id number]) [facility] ([facility]) [address] [place] [address] 22788 Nucleated RBC/100 WBC (Bld) [Ratio] 0.0 /100 WBCs Normal 0.0-0.0 [facility] Comment on above: Performed By: #### 5 7021-8 #### NAIMA ZAMARRIPA ([id number]) [facility] ([facility]) [address] [place] [address] 20611 Platelets (Bld) [#/Vol] 252 x10*3/uL Normal 150-450 [facility] Comment on above: Performed By: #### 5 7021-8 #### NAIMA ZAMARRIPA ([id number]) [facility] ([facility]) [address] [place] [address] RBC (Bld) [#/Vol] 3.88 x10*6/uL Low 4.50-5.90 [facility] Comment on above: Performed By: #### 5 7021-8 #### NAIMA ZAMARRIPA ([id number]) [facility] ([facility]) [address] [place] [address] WBC (Bld) [#/Vol] 8.3 x10*3/uL Normal 4.4-11.3 [facility] Comment on above: Performed By: #### 5 7021-8 #### NAIMA ZAMARRIPA ([id number]) [facility] ([facility]) [address] [place] [address] Comprehensive metabolic 2000 panelon 02-15-2024 Albumin BCP dye [Mass/Vol] 3.9 g/dL Normal 3.4-5.0 [facility] Comment on above: Performed By: #### 2 4323-8 #### NAIMA ZAMARRIPA ([id number]) [facility] ([facility]) [address] [place] [address] ALP [Catalytic activity/Vol] 73 U/L Normal 33-136 [facility] Comment on above: Performed By: #### 2 4323-8 #### NAIMA ZAMARRIPA ([id number]) [facility] ([facility]) [address] [place] [address] ALT With P-5'-P [Catalytic activity/Vol] 8 U/L Low 10-52 [facility] Comment on above: Result Comment: Darcie ents treated with Sulfasalazine may generate falsely decreased results for ALT. Performed By: #### 2 4323-8 #### NAIMA ZAMARRIPA ([id number]) [facility] ([facility]) [address] [place] [address] 71212 Anion gap [Moles/Vol] 13 mmol/L Normal 10-20 [facility] Comment on above: Performed By: #### 2 4323-8 #### NAIMA ZAMARRIPA ([id number]) [facility] ([facility]) [address] [place] [address] 50111 AST With P-5'-P [Catalytic activity/Vol] 18 U/L Normal 9-39 [facility] Comment on above: Performed By: #### 2 4323-8 #### NAIMA ZAMARRIPA ([id number]) [facility] ([facility]) [address] [place] [address] 14686 Bilirubin [Mass/Vol] 0.7 mg/dL Normal 0.0-1.2 [facility] Comment on above: Performed By: #### 2 432-8 #### NAIMA ZAMARRIPA ([id number]) [facility] ([facility]) [address] [place] [address] 85521 Calcium [Mass/Vol] 8.7 mg/dL Normal 8.6-10.3 [facility] Comment on above: Performed By: #### 2 432-8 #### NAIMA ZAMARRIPA ([id number]) [facility] ([facility]) [address] [place] [address] 20112 Chloride [Moles/Vol] 104 mmol/L Normal 98-107 [facility] Comment on above: Performed By: #### 2 432-8 #### NAIMA ZAMARRIPA ([id number]) [facility] ([facility]) [address] [place] [address] 95177 CO2 [Moles/Vol] 25 mmol/L Normal 21-32 [facility] Comment on above: Performed By: #### 2 4323-8 #### NAIMA ZAMARRIPA ([id number]) [facility] ([facility]) [address] [place] [address] 90330 Creatinine [Mass/Vol] 1.64 mg/dL High 0.50-1.30 [facility] Comment on above: Performed By: #### 2 4323-8 #### NAIMA ZAMARRIPA ([id number]) [facility] ([facility]) [address] [place] [address] 04497 Glomerular filtration rate/1.73 sq M.predicted 42 mL/min/1.73m*2 Low >60 [facility] Comment on above: Result Comment: Calc ulations of estimated GFR are performed using the 2020 CKD-EPI Study Refit equation without the race variable for the IDMS-Traceable creatinine methods. https://jasn.asnjournals.org/content//ASN.841449 4283 Performed By: #### 2 4323-8 #### NAIMA ZAMARRIPA ([id number]) [facility] ([facility]) [address] [place] [address] 45963 Glucose [Mass/Vol] 78 mg/dL Normal 74-99 [facility] Comment on above: Performed By: #### 2 4323-8 #### NAIMA ZAMARRIPA ([id number]) [facility] ([facility]) [address] [place] [address] 25646 Potassium [Moles/Vol] 4.4 mmol/L Normal 3.5-5.3 [facility] Comment on above: Performed By: #### 2 4323-8 #### NAIMA ZAMARRIPA ([id number]) [facility] ([facility]) [address] [place] [address] 39165 Protein [Mass/Vol] 7.0 g/dL Normal 6.4-8.2 [facility] Comment on above: Performed By: #### 2 4323-8 #### NAIMA ZAMARRIPA ([id number]) [facility] ([facility]) [address] [place] [address] 22107 Sodium [Moles/Vol] 138 mmol/L Normal 136-145 [facility] Comment on above: Performed By: #### 2 4323-8 #### NAIMA ZAMARRIPA ([id number]) [facility] ([facility]) [address] [place] [address] 77279 Urea nitrogen [Mass/Vol] 37 mg/dL High 6-23 [facility] Comment on above: Performed By: #### 2 4323-8 #### NAIMA ZAMARRIPA ([id number]) [facility] ([facility]) [facility] [place] [address] Lipid 1996 panelon 4 Cholesterol [Mass/Vol] 146 mg/dL Normal 0-199 [facility] Comment on above: Result Comment: Age Desirable Borderline High High 0-19 Y 0 - 169 170 - 199 >/= 200 20-24 Y 0 - 189 190 - 224 >/= 225 >24 Y 0 - 199 200 - 239 >/= 240 All ranges are based on fasting samples. Specific therapeutic targets will vary based on patient-specific cardiac risk. Pediatric guidelines reference:Pediatrics 2011, 128(S5).Adult guidelines reference: NCEP ATPIII Guidelines,HELGA 2001, 258:2486-97 Venipuncture immediately after or during the administration of Metamizole may lead to falsely low results. Testing should be performed immediately prior to Metamizole dosing. Performed By: #### 2 4331-1 #### NAIMA ZAMARRIPA ([id number]) [facility] ([facility]) [address] [place] [address] 38153 Cholesterol in HDL [Mass/Vol] 48.0 mg/dL Normal [facility] Comment on above: Result Comment: Age Very Low Low Normal High 0-19 Y < 35 < 40 40-45 ---- 20-24 Y ---- < 40 >45 ---- >24 Y ---- < 40 40-60 >60 Performed By: #### 2 4331-1 #### NAIMA ZAMARRIPA ([id number]) [facility] ([facility]) [address] [place] [address] 85349 Cholesterol in LDL [Mass/Vol] 81 mg/dL Normal <=99 [facility] Comment on above: Result Comment: Near Borderline AGE Desirable Optimal High High Very High 0-19 Y 0 - 109 --- 110-129 >/= 130 ---- 20-24 Y 0 - 119 --- 120-159 >/= 160 ---- >24 Y 0 - 99 100-129 130-159 160-189 >/=190 Performed By: #### 2 4331-1 #### NAIMA ZAMARRIPA ([id number]) [facility] ([facility]) [address] [place] [address] 82519 Cholesterol in VLDL [Mass/Vol] 17 mg/dL Normal 0-40 [facility] Comment on above: Performed By: #### 2 4331-1 #### NAIMA ZAMARRIPA ([id number]) [facility] ([facility]) [facility] [place] [address] CHOLESTEROL/HDL RATIO 3.0 Normal [facility] Comment on above: Result Comment: Ref Values Desirable < 3.4 High Risk > 5.0 Performed By: #### 2 4331-1 #### NAIMA ZAMARRIPA ([id number]) [facility] ([facility]) [facility] [place] [address] NON HDL CHOLESTEROL 98 mg/dL Normal 0-149 [facility] Comment on above: Result Comment: Age Desirable Borderline High High Very High 0-19 Y 0 - 119 120 - 144 >/= 145 >/= 160 20-24 Y 0 - 149 150 - 189 >/= 190 ---- >24 Y 30 mg/dL above LDL Cholesterol goal Performed By: #### 2 4331-1 #### NAIMA ZAMARRIPA ([id number]) [facility] ([facility]) [facility] [place] [address] Triglyceride [Mass/Vol] 86 mg/dL Normal 0-149 [facility] Comment on above: Result Comment: Age Desirable Borderline High High Very High 0 D-90 D 19 - 174 ---- ---- ---- 91 D- 9 Y 0 - 74 75 - 99 >/= 100 ---- 10-19 Y 0 - 89 90 - 129 >/= 130 ---- 20-24 Y 0 - 114 115 - 149 >/= 150 ---- >24 Y 0 - 149 150 - 199 200- 499 >/= 500 Venipuncture immediately after or during the administration of Metamizole may lead to falsely low results. Testing should be performed immediately prior to Metamizole dosing. Performed By: #### 2 4331-1 #### NAIMA ZAMARRIPA ([id number]) [facility] ([facility]) [facility] [place] [address] TSH WITH REFLEX TO FREE T4 I F ABNORMALon 02-15-2024 TSH Qn 6.67 m[IU]/L High 0.44-3.98 [facility] Comment on above: Order Comment: TSH t esting is performed using different testing methodology at [facility] than at other [facility]. Direct result comparisons should only be made within the same method. Performed By: #### T HYDS #### NAIMA ZAMARRIPA ([id number]) [facility] ([facility]) [address] [place] [address] 44429 Thyroxine.freeon 02-15-2024 Free T4 [Mass/Vol] 0.88 ng/dL Normal 0.61-1.12 [facility] Comment on above: Order Comment: Thyro xine Free testing is performed using different testing methodology at [facility] than at other [facility]. Direct result comparisons should only be made within the same method. Biotin can cause falsely elevated free T4 results. Patients taking a Biotin dose of up to 10 mg/day should refrain from taking Biotin for 24 hours before sample collection. Patient taking a Biotin dose of >10 mg/day should consult with their physician or the laboratory before the blood draw. Performed By: #### 3 024-7 #### NAIMA ZAMARRIPA ([id number]) [facility] ([facility]) [address] [place] [address] 08388 Serum or plasma thyroid stim ulating hormone (TSH) measurement (units/volume)Ordered By: Shana Nichols on 01-08-2024 TSH Qn 7.19 uIU/mL 0.358-3.74 [facility] Thyroid Stim Hormone (TSH)on 01-08-2024 TSH 7.19 uIU/mL High 0.358-3.74 [facility] Comment on above: Performed By: #### L 501.9520 #### [facility] [address] [place], [place], [address] Serum or plasma thyroid stim ulating hormone (TSH) measurement (units/volume)Ordered By: Shana Nichols on 11-25-2023 TSH Qn 8.42 uIU/mL 0.358-3.74 [facility] Absolute lymphocyte countOrd ered By: Shana Nichols on 10-14-2023 Lymphocytes Auto (Unsp spec) [#/Vol] 0.93 10*3/uL 0.83-4.51 [facility] Basophil percentageOrdered B y: Shana Nichols on 10-14-2023 Basophils/100 WBC (Bld) 0.4 % 0-1 [facility] Bilirubin [Mass/Vol] 0.60 mg/dL 0.20-1.00 [facility] Comment on above: For patients on eltr ombopag therapy, use of Dimension [place] TBIL is not recommended. Chloride [Moles/Vol] 107 mmol/L 98-107 [facility] Cholesterol [Mass/Vol] 152 mg/dL <200 [facility] Comment on above: <200 mg/dL Desirable 200-240 mg/dL Borderline >240 mg/dL High Risk Eosinophils/100 WBC (Bld) 2.9 % 0-5 [facility] Glucose [Mass/Vol] 86 mg/dL 74-106 [facility] Neutrophils (Bld) [#/Vol] 5.7 10*3/uL 2.0-7.7 [facility] Neutrophils/100 WBC (Bld) 74.2 % 47-70 [facility] Potassium [Moles/Vol] 4.3 mmol/L 3.5-5.1 [facility] Protein [Mass/Vol] 7.9 g/dL 6.4-8.2 [facility] Sodium [Moles/Vol] 138 mmol/L 136-145 [facility] Triglyceride [Mass/Vol] 97 mg/dL <199 [facility] Comment on above: The drugs N-Acetylcy steine and Metamizole may falsely depress this assay.Serum Triglycerides Reference Interval Normal <150 mg/dL Borderline high 150 - 199 mg/dL High 200 - 499 mg/dL Very High > or = 500 mg/dL WBC (Bld) [#/Vol] 7.6 10*3/uL 4.4-11.0 [facility] Blood erythrocytes count (nu mber/volume)Ordered By: Shana Nichols on 10-14-2023 RBC (Bld) [#/Vol] 3.74 10*6/uL 4.6-6.2 [facility] Blood hemoglobin measurement (mass/volume)Ordered By: Shana Nichols on 10-14-2023 Hemoglobin (Bld) [Mass/Vol] 11.8 g/dL 13.0-16.5 [facility] Blood lymphocytes/100 leukoc ytesOrdered By: Shana Nichols on 10-14-2023 Lymphocytes/100 WBC (Bld) 12.2 % 19-41 [facility] Blood monocytes/100 leukocyt esOrdered By: Shana Nichols on 10-14-2023 Monocytes/100 WBC (Bld) 9.6 % 0-10 [facility] Blood platelet mean volumeOr dered By: Shana Nichols on 10-14-2023 Platelet mean volume (Bld) [Entitic vol] 10.6 fL 6.2-12.0 [facility] Determination of erythrocyte mean corpuscular volume (MCV)Ordered By: Shana Nichols on 10-14-2023 MCV (RBC) [Entitic vol] 97.9 fL 80-94 [facility] Direct bilirubinOrdered By: Shana Nichols on 10-14-2023 Bilirubin.direct [Mass/Vol] 0.18 mg/dL 0.00-0.30 [facility] Hematocrit Auto (Bld) [Volum e fraction]Ordered By: Shana Nichols on 10-14-2023 Hematocrit (Bld) [Volume fraction] 36.6 % 40-54 [facility] Laboratory - Chemistry and C hemistry - challengeOrdered By: Shana Nichols on 10-14-2023 ALP [Catalytic activity/Vol] 45 U/L 45-117 [facility] ALT [Catalytic activity/Vol] 18 U/L 16-61 [facility] CO2 [Moles/Vol] 28.0 mmol/L 21.0-32.0 [facility] Free T4 [Mass/Vol] 0.97 ng/dL 0.76-1.46 [facility] Globulin (S) [Mass/Vol] 4.6 g/dL 2.2-4.2 [facility] Urea nitrogen/Creatinine [Mass ratio] 21.9 mg/mg 10-20 [facility] Laboratory - Hematology and Cell countsOrdered By: Shana Nichols on 10-14-2023 Erythrocyte distribution width (RBC) [Entitic vol] 48.3 fL 35.1-43.9 [facility] Erythrocyte distribution width (RBC) [Ratio] 13.4 % 11.6-14.6 [facility] Immature granulocytes/100 WBC (Bld) 0.700 % 0.0-0.9 [facility] Comment on above: IG% - Immature Granu locytes (promyelocytes, myelocytes and metamyelocytes) > 1% indicates that a LEFT SHIFT is Present. MCH (RBC) [Entitic mass] 31.6 pg 27.0-32.0 [facility] Nucleated RBC/100 WBC (Bld) [Ratio] 0 % 0-5 [facility] MCHC Auto (RBC) [Mass/Vol]Or dered By: Shana Nichols on 10-14-2023 MCHC (RBC) [Mass/Vol] 32.2 g/dL 32-36 [facility] No Panel InformationOrdered By: Shana Nichols on 10-14-2023 Estimated GFR (MDRD) Amer 54 mL/min >60 [facility] Comment on above: GFR Calc Estimated GFR (MDRD) Non-Af Amer 45 mL/min >60 [facility] Comment on above: Non- GFR Calc Free Triiodothyronine (T3) pg/dL 2.6 pg/mL 2.18-3.98 [facility] Thyroid Stimulating Hormone (TSH) 8.84 uIU/mL 0.358-3.74 [facility] Platelets bldOrdered By: Richard Nichols on 10-14-2023 Platelets (Bld) [#/Vol] 251 10*3/uL 150-450 [facility] Serum or plasma albumin pardeep urement (mass/volume)Ordered By: Shana Nichols on 10-14-2023 Albumin [Mass/Vol] 3.3 g/dL 3.2-5.0 [facility] Serum or plasma calcium pardeep urement (mass/volume)Ordered By: Shana Nichols on 10-14-2023 Calcium [Mass/Vol] 8.7 mg/dL 8.5-10.1 [facility] Serum or plasma cholesterol in HDL measurement (mass/volume)Ordered By: Shana Nichols on 10-14-2023 Cholesterol in HDL [Mass/Vol] 63 mg/dL >40 [facility] Comment on above: The drugs N-Acetylcy steine and Metamizole may falsely depress this assay. Reference Range HDL <40 mg/dL Low HDL Cholesterol HDL >or= 60 mg/dL High HDL Cholesterol Serum or plasma cholesterol in VLDL measurement (mass/volume)Ordered By: Shana Nichols on 10-14-2023 Cholesterol in VLDL [Mass/Vol] 19 mg/dL 5-40 [facility] Serum or plasma creatinine m easurement (mass/volume)Ordered By: Shana Nichols on 10-14-2023 Creatinine [Mass/Vol] 1.60 mg/dL 0.70-1.30 [facility] Comment on above: The validity of the calculated GFR & GFRAA in patients over 70 years has not been determined. Clinical correlation is essential. Serum or plasma low density lipoprotein (LDL) cholesterol measurement (mass/volume)Ordered By: Shana Nichols on 10-14-2023 Cholesterol in LDL [Mass/Vol] 70 mg/dL 0-130 [facility] Serum or plasma urea nitroge n measurement (mass/volume)Ordered By: Shana Nichols on 10-14-2023 Urea nitrogen [Mass/Vol] 35 mg/dL 7-18 [facility] Thin prep Papanicolaou smear with manual screeningOrdered By: Shana Nichols on 10-14-2023 Thin prep Papanicolaou smear with manual screening 20 U/L 15-37 [facility] Thin prep Papanicolaou smear with manual screening 3 5-15 [facility] .Auto Diffon 01-05-2019 Ammonia mass conc (P) 0.80 10 3/mcL Normal 0.15-1.00 [facility] ([place]) Comment on above: Performed By: #### C YING BAZAN ANEU #### [address] [address] #### GFR, BMP #### [address] [address] Basophils #/vol (Bld) 0.00 10 3/mcL Normal 0.00-0.19 [facility] ([place]) Comment on above: Performed By: #### C YING BAZAN ANEU #### [address] [address] #### GFR, BMP #### [address] [address] Basophils/100 WBC (Bld) 0.2 % Normal 0.0-2.5 [facility] ([place]) Comment on above: Performed By: #### C BC, ADIFF, ANEU #### [address] [address] #### GFR, BMP #### [address] [address] Eosinophils #/vol (Bld) 0.00 10 3/mcL Normal 0.00-0.40 [facility] ([place]) Comment on above: Performed By: #### C BC, ADIFF, ANEU #### [place] [address] #### GFR, BMP #### [address] [address] Eosinophils/100 WBC (Bld) 0.0 % Normal 0.0-7.0 [facility] ([place]) Comment on above: Performed By: #### C BC, ADIFF, ANEU #### [address] [address] #### GFR, BMP #### [address] [address] Lymphocytes #/vol (Bld) 0.40 10 3/mcL Low 0.77-3.85 [facility] ([place]) Comment on above: Performed By: #### C BC, ADIFF, ANEU #### [address] [address] #### GFR, BMP #### [address] [address] Lymphocytes/100 WBC (Bld) 3.6 % Low 10.0-50.0 [facility] ([place]) Comment on above: Performed By: #### C BC, ADIFF, ANEU #### [address] [address] #### GFR, BMP #### [address] [address] Monocytes/100 WBC (Bld) 6.3 % Normal 1.7-13.0 [facility] ([place]) Comment on above: Performed By: #### C BC, ADIFF, ANEU #### [place] [id number] #### GFR, BMP #### [address] [address] Neutrophils/100 WBC (Bld) 89.9 % High 37.0-80.0 [facility] ([place]) Comment on above: Performed By: #### C BCYING, ANEU #### [place] [address] [address] #### GFR, BMP #### [address] [address] .GFRon 01-05-2019 GFR 72 ml/min/1.73sqm Normal [facility] ([place]) Comment on above: Result Comment: GFR Population mean for , Non- Americans Ages 20-29 = 116 mL/min/1.73 sq.m. Ages 30-39 = 107 mL/min/1.73 sq.m. Ages 40-49 = 99 mL/min/1.73 sq.m. Ages 50-59 = 93 mL/min/1.73 sq.m. Ages 60-69 = 85 mL/min/1.73 sq.m. Ages 70+ = 75 mL/min/1.73 sq.m. Chronic Kidney Disease: Less than 60 mL/min/1.73 square meters End Stage Renal Disease: Less than 15 mL/min/1.73 square meters Performed By: #### B MP, GFR #### [address] [address] GFR Non- 59 ml/min/1.73sqm Normal [facility] ([place]) Comment on above: Result Comment: GFR Population mean for , Non- Americans Ages 20-29 = 116 mL/min/1.73 sq.m. Ages 30-39 = 107 mL/min/1.73 sq.m. Ages 40-49 = 99 mL/min/1.73 sq.m. Ages 50-59 = 93 mL/min/1.73 sq.m. Ages 60-69 = 85 mL/min/1.73 sq.m. Ages 70+ = 75 mL/min/1.73 sq.m. Chronic Kidney Disease: Less than 60 mL/min/1.73 square meters End Stage Renal Disease: Less than 15 mL/min/1.73 square meters Performed By: #### B MP, GFR #### [address] [address] .NEUABSon 01-05-2019 Neutrophils #/vol (Bld) 11.10 10 3/mcL High 2.85-6.16 [facility] ([place]) Comment on above: Performed By: #### C BC, ADIFF, ANEU #### [place] [address] [place], [place] [address] #### GFR, BMP #### [place] [address] BMPon 01-05-2019 Urea nitrogen mass conc 28 mg/dL High 7-18 [facility] ([place] Comment on above: Performed By: #### B MP, GFR #### [place] [address] Urea nitrogen/Creatinine mass ratio 23 ratio Normal 7-27 [facility] ([place] Comment on above: Performed By: #### B MP, GFR #### [place] [address] Calcium mass conc 8.3 mg/dL Low 8.4-10.2 [facility] ([place] Comment on above: Performed By: #### B MP, GFR #### [place] [address] Chloride molar conc 102 mmol/L Normal 98-107 [facility] ([place] Comment on above: Performed By: #### B MP, GFR #### [place] [address] CO2 molar conc 23 mmol/L Normal 23-31 [facility] ([place] Comment on above: Performed By: #### B MP, GFR #### [place] [address] Creatinine mass conc 1.20 mg/dL Normal 0.70-1.30 [facility] ([place]) Comment on above: Performed By: #### B MP, GFR #### [place] [address] Electrolyte Balance 12.0 mEq/L Normal [facility] ([place] Comment on above: Performed By: #### B MP, GFR #### [place] [address] Glucose mass conc 152 mg/dL High 83-110 [facility] ([place] Comment on above: Performed By: #### B MP, GFR #### [place] [address] Potassium molar conc 4.6 mmol/L Normal 3.5-5.1 [facility] ([place]) Comment on above: Performed By: #### B MP, GFR #### [place] [address] Sodium molar conc 137 mmol/L Normal 136-145 [facility] ([place] Comment on above: Performed By: #### B MP, GFR #### [place] [address] CBCon 01-05-2019 Erythrocyte distribution width Ratio (RBC) 13.8 % Normal 11.5-14.5 [facility] ([place] Comment on above: Performed By: #### C YING BAZAN, ANEU #### [address] [address] #### GFR, BMP #### [place] [address] Hematocrit Volume Fraction (Bld) 31.1 % Low 42.0-52.0 [facility] ([place] Comment on above: Performed By: #### C BCYING, ANEU #### [address] [address] #### GFR, BMP #### [place] [address] Hemoglobin mass conc (Bld) 10.8 G/dL Low 14.0-18.0 [facility] ([place] Comment on above: Performed By: #### C BCYING, ANEU #### [address] [address] #### GFR, BMP #### [place] [address] MCH Entitic mass (RBC) 32.5 pg High 27.0-31.2 [facility] ([place]) Comment on above: Performed By: #### C BC, ADIFF, ANEU #### [address] [address] #### GFR, BMP #### [address] [address] MCHC mass conc (RBC) 34.7 G/dL Normal 31.8-35.4 [facility] ([place]) Comment on above: Performed By: #### C BC, ADIFF, ANEU #### [place] [address] #### GFR, BMP #### [place] [address] MCV Entitic volume (RBC) 93.4 fL Normal 80.0-94.0 [facility] ([place] Comment on above: Performed By: #### C BC, ADIFF, ANEU #### [place] [address] #### GFR, BMP #### [place] [address] Platelet mean volume Entitic volume (Bld) 9.0 fL Normal 7.4-10.4 [facility] ([place] Comment on above: Performed By: #### C BC, ADIFF, ANEU #### [place] [address] #### GFR, BMP #### [place] [address] Platelets #/vol (Bld) 182 10 3/mcL Normal 130-400 A On license of [facility] ([place]) Comment on above: Performed By: #### C BC, ADIFF, ANEU #### [address] [address] #### GFR, BMP #### [place] [address] RBC #/vol (Bld) 3.33 10 6/mcL Low 4.04-6.13 [facility] ([place] Comment on above: Performed By: #### C BC, ADIFF, ANEU #### [place] [address] #### GFR, BMP #### [place] [address] WBC #/vol (Bld) 12.30 10 3/mcL High 4.60-10.80 [facility] ([place] Comment on above: Performed By: #### C YING BAZAN ANEU #### [place] [address] #### GFR, BMP #### [place] [address] XR KNEE 1 OR 2 VIEWS RIGHTon 01-04-2019 XR KNEE 1 OR 2 VIEWS RIGHT ORIGINAL XR KNEE 1 OR 2 VIEWS RIGHT CLINICAL STATEMENT: Status Post Arthroplasty COMPARISON: None FINDINGS:2 images of the RIGHT knee demonstrate a prosthesis in place. Air is no acute fracture or dislocation. Postoperative changes to the soft tissues are noted IMPRESSION:Post RIGHT knee prosthesis placement Interpreted By: Rashmi Wilkins MD Preliminary Report By: Rashmi Wilkins MD Electronically Signed By: Rashmi Wilkins MD Dictated Date: 01/04/2019 1:16:46 PM Prelim Date: 01/04/2019 1:16:46 PM Sign Date: 01/04/2019 1:17:01 PM Normal [facility] ([place] .Auto Diffon 12-20-2018 Ammonia mass conc (P) 0.40 10 3/mcL Normal 0.15-1.00 [facility] ([place] Comment on above: Performed By: #### C YING BAZAN ANEU #### [address] [address] Basophils #/vol (Bld) 0.00 10 3/mcL Normal 0.00-0.19 [facility] ([place] Comment on above: Performed By: #### C YING BAZAN ANEU #### [address] [address] Basophils/100 WBC (Bld) 0.3 % Normal 0.0-2.5 [facility] ([place] Comment on above: Performed By: #### C YING BAZAN ANEU #### [place] [address] [place], [place] [address] Eosinophils #/vol (Bld) 0.10 10 3/mcL Normal 0.00-0.40 [facility] ([place]) Comment on above: Performed By: #### C YING BAZAN, ANEU #### [address] [address] Eosinophils/100 WBC (Bld) 2.4 % Normal 0.0-7.0 [facility] ([place]) Comment on above: Performed By: #### C YING BAZAN, ANEU #### [place] [address] [address] Lymphocytes #/vol (Bld) 0.80 10 3/mcL Normal 0.77-3.85 [facility] ([place]) Comment on above: Performed By: #### C YING BAZAN, ANEU #### [place] [address] [address] Lymphocytes/100 WBC (Bld) 13.7 % Normal 10.0-50.0 [facility] ([place]) Comment on above: Performed By: #### C YING BAZAN, ANEU #### [address] [address] Monocytes/100 WBC (Bld) 6.7 % Normal 1.7-13.0 [facility] ([place]) Comment on above: Performed By: #### C YING BAZAN, ANEU #### [address] [address] Neutrophils/100 WBC (Bld) 76.9 % Normal 37.0-80.0 [facility] ([place]) Comment on above: Performed By: #### C YING BAZAN, ANEU #### [address] [address] .GFRon 12-20-2018 GFR 67 ml/min/1.73sqm Normal [facility] ([place]) Comment on above: Result Comment: GFR Population mean for , Non- Americans Ages 20-29 = 116 mL/min/1.73 sq.m. Ages 30-39 = 107 mL/min/1.73 sq.m. Ages 40-49 = 99 mL/min/1.73 sq.m. Ages 50-59 = 93 mL/min/1.73 sq.m. Ages 60-69 = 85 mL/min/1.73 sq.m. Ages 70+ = 75 mL/min/1.73 sq.m. Chronic Kidney Disease: Less than 60 mL/min/1.73 square meters End Stage Renal Disease: Less than 15 mL/min/1.73 square meters Performed By: #### B MP, GFR #### [address] [address] GFR Non- 55 ml/min/1.73sqm Normal [facility] ([place] Comment on above: Result Comment: GFR Population mean for , Non- Americans Ages 20-29 = 116 mL/min/1.73 sq.m. Ages 30-39 = 107 mL/min/1.73 sq.m. Ages 40-49 = 99 mL/min/1.73 sq.m. Ages 50-59 = 93 mL/min/1.73 sq.m. Ages 60-69 = 85 mL/min/1.73 sq.m. Ages 70+ = 75 mL/min/1.73 sq.m. Chronic Kidney Disease: Less than 60 mL/min/1.73 square meters End Stage Renal Disease: Less than 15 mL/min/1.73 square meters Performed By: #### B MP, GFR #### [address] [address] .NEUABSon 12-20-2018 Neutrophils #/vol (Bld) 4.30 10 3/mcL Normal 2.85-6.16 [facility] ([place] Comment on above: Performed By: #### C BC, ADIFF, ANEU #### [place] [address] [address] BMPon 12-20-2018 Calcium mass conc 8.3 mg/dL Low 8.4-10.2 [facility] ([place] Comment on above: Performed By: #### B MP, GFR #### [address] [address] Chloride molar conc 104 mmol/L Normal 98-107 [facility] ([place] Comment on above: Performed By: #### B MP, GFR #### [address] [address] CO2 molar conc 27 mmol/L Normal 23-31 [facility] ([place] Comment on above: Performed By: #### B MP, GFR #### [address] [address] Creatinine mass conc 1.27 mg/dL Normal 0.70-1.30 [facility] ([place] Comment on above: Performed By: #### B MP, GFR #### [address] [address] Electrolyte Balance 10.0 mEq/L Normal [facility] ([place] Comment on above: Performed By: #### B MP, GFR #### [address] [address] Glucose mass conc 90 mg/dL Normal 83-110 [facility] ([place] Comment on above: Performed By: #### B MP, GFR #### [address] [address] Potassium molar conc 4.1 mmol/L Normal 3.5-5.1 [facility] ([place] Comment on above: Performed By: #### B MP, GFR #### [address] [address] Sodium molar conc 141 mmol/L Normal 136-145 [facility] ([place] Comment on above: Performed By: #### B MP, GFR #### [address] [address] Urea nitrogen mass conc 28 mg/dL High 7-18 [facility] ([place] Comment on above: Performed By: #### B MP, GFR #### [address] [address] Urea nitrogen/Creatinine mass ratio 22 ratio Normal 7-27 [facility] ([place] Comment on above: Performed By: #### B MP, GFR #### [address] [address] CBCon 12-20-2018 Erythrocyte distribution width Ratio (RBC) 13.8 % Normal 11.5-14.5 [facility] ([place] Comment on above: Performed By: #### YING GOODMAN ANEU #### [address] [address] Hematocrit Volume Fraction (Bld) 35.6 % Low 42.0-52.0 [facility] ([place]) Comment on above: Performed By: #### YING GOODMAN ANEU #### [place] [id number] Hemoglobin mass conc (Bld) 12.3 G/dL Low 14.0-18.0 [facility] ([place]) Comment on above: Performed By: #### YING GOODMAN ANEU #### [place] [address] MCH Entitic mass (RBC) 32.1 pg High 27.0-31.2 [facility] ([place] Comment on above: Performed By: #### YING GOODMAN ANEU #### [place] [id number] MCHC mass conc (RBC) 34.6 G/dL Normal 31.8-35.4 [facility] ([place]) Comment on above: Performed By: #### YING GOODMAN ANEU #### [address] [address] MCV Entitic volume (RBC) 92.6 fL Normal 80.0-94.0 [facility] ([place] Comment on above: Performed By: #### YING GOODMAN, ANEU #### [place] [address] [address] Platelet mean volume Entitic volume (Bld) 8.4 fL Normal 7.4-10.4 [facility] ([place] Comment on above: Performed By: #### YING GOODMAN, ANEU #### [place] [address] [address] Platelets #/vol (Bld) 213 10 3/mcL Normal 130-400 A On license of [facility] ([place]) Comment on above: Performed By: #### YING GOODMAN, ANEU #### [address] [address] RBC #/vol (Bld) 3.84 10 6/mcL Low 4.04-6.13 [facility] ([place] Comment on above: Performed By: #### C YING BAZAN, ANEU #### [facility] [address] [place], [place] [address] WBC #/vol (Bld) 5.60 10 3/mcL Normal 4.60-10.80 [facility] ([place] Comment on above: Performed By: #### C YING BAZAN, ANEU #### [place] [id number] [place], [place] [address] CT KNEE W/O CONTRAST RIGHTon 12-20-2018 CT KNEE W/O CONTRAST RIGHT ORIGINAL CT KNEE W/O CONTRAST RIGHT This exam was performed according to our departmental dose optimization program, and includes the following measures where applicable: automated exposure control, adjustment of the mAs and/or kVp according to patient size and/or exam, and an iterative reconstruction algorithm. CLINICAL STATEMENT: UNILATERAL PRIMARY OSTEOARTHRITIS, RT KNEE, varus deformity, presurgical planning, Chavo protocol COMPARISON: None FINDINGS: Axial images were acquired at the RIGHT hip, knee, and ankle. Sagittal and coronal reformations of the RIGHT knee were performed. There is no fracture or dislocation. Tricompartmental joint space narrowing and osteophyte formation is demonstrated. There is a [id number] configuration in the medial tibiofemoral compartment. Moderate suprapatellar effusion is demonstrated. IMPRESSION: Study performed for surgical planning purposes. Advanced tricompartmental osteoarthritis. Interpreted By: Stephanie Chaparro MD Preliminary Report By: Stephanie Chaparro MD Electronically Signed By: Stephanie Chaparro MD Dictated Date: 12/20/2018 2:06:53 PM Prelim Date: 12/20/2018 2:06:53 PM Sign Date: 12/20/2018 2:08:58 PM Normal [facility] ([place] XR Knee Complete Righton XR Knee Complete Right Exam Date/Time: 08/17/2018 16:09 EST Reason for Exam: arthralgia of right knee Report STUDY: XR Knee Complete Right; 08/17/2018 4:09 pm INDICATION: arthralgia of right knee. COMPARISON: None. ACCESSION NUMBER(S): [id number] ORDERING CLINICIAN: Rosiebl Wick TECHNIQUE: 4 views of the right knee including AP, lateral and bilateral oblique projections were obtained. FINDINGS: There is no evidence of acute fracture or dislocation identified. Moderate to severe joint space narrowing and small marginal osteophytes are present in the medial compartment of the right knee. No suprapatellar joint effusion is present. IMPRESSION: 1. No acute fracture or dislocation. 2. Degenerative changes, as described above. FINAL REPORT Dictated: 08/18/2018 11:02 am Dashawn Troy MD Signed (Electronic Signature): 08/18/2018 11:02 am Signed by: Dashawn Troy MD Technologist: GREGORIO [facility] Office Visiton 04-21-2017 Fall risk assessment No [facility] Work Phone: [phone] Protein mass conc Done [facility] Work Phone: [phone] Tobacco smoking status NHIS Never smoker [facility] Work Phone: [phone] Replaced Document: [facility] E CG Observationson 04-21-2017 EKG QRS axis 32 deg [facility] Work Phone: [phone] Interpretation Marked sinus Bradycardia BORDERLINE RHYTHM [facility] Work Phone: [phone] P [place] 1 deg [facility] Work Phone: [phone] MS Interval 0 ms [facility] Work Phone: [phone] QRS Duration 100 ms [facility] Work Phone: [phone] QT Interval new path ms [facility] Work Phone: [phone] QTc [place] 445 ms [facility] Work Phone: [phone] T [place] -1 deg [facility] Work Phone: [phone] 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 Left ventricular Ejection fraction 55 % [facility] Work Phone: [phone] Lab Report: BNP,B-Type NATRI URETIC PEPTIDEon 03-30-2017 Natriuretic peptide B mass conc (Bld) 453.3 pg/mL High 0-100 [facility] Work Phone: Lab Report: Basic Metabolic Profile (BMP)on 03-30-2017 Anion gap molar conc 6 mmol/L 5-[address] [facility] Work Phone: [phone] Calcium mass conc 8.7 mg/dL 8.5-10.1 [facility] Work Phone: [phone] Chloride molar conc 105 mmol/L 98-107 [facility] Work Phone: [phone] CO2 ppres (BldV) 27.0 mmol/L 21.0-32.0 [facility] Work Phone: [phone] Creatinine mass conc 1.08 mg/dL 0.70-1.[address] [facility] Work Phone: [phone] EST GFR - AA 86 mL/min >60 [facility] Work Phone: [phone] GFR/1.73 sq M predicted among non-blacks MDRD vol rate/area (S/P/Bld) 71 mL/min/{1.73_m2} >60 [facility] Work Phone: [phone] Glucose mass conc 98 mg/dL 70-110 [facility] Work Phone: [phone] Potassium molar conc 4.4 mmol/L 3.5-5.[address] [facility] Work Phone: [phone] Sodium molar conc 138 mmol/L 136-145 [facility] Work Phone: [phone] Urea nitrogen mass conc 19 mg/dL High 7-18 [facility] Work Phone: [phone] Urea nitrogen/Creatinine mass ratio 17.6 RATIO 10-20 [facility] Work Phone: [phone] Lab Report: CBC W/Diff, Auto matedon 03-30-2017 Basophils/100 WBC (Bld) 0.3 % 0-1 [facility] Work Phone: [phone] Eosinophils/100 WBC (Bld) 3.6 % 0-5 [facility] Work Phone: [phone] Erythrocyte distribution width Ratio (RBC) 13.7 % 11.6-14.6 [facility] Work Phone: Erythrocyte distribution width Ratio (RBC) 45.2 fL High 35.1-43.9 [facility] Work Phone: [phone] Hematocrit Volume Fraction (Bld) 41.2 % 40-54 [facility] Work Phone: [phone] Hemoglobin mass conc (Bld) 14.2 g/dL 13.0-16.5 [facility] Work Phone: [phone] Immature granulocytes #/vol (Bld) 0.200 % 0.0-0.9 [facility] Work Phone: [phone] Lymphocytes #/vol (Bld) 1.13 X10 3/UL 0.83-4.51 [facility] Work Phone: [phone] Lymphocytes/100 WBC (Bld) 18.6 % Low 19-41 [facility] Work Phone: [phone] MCH Entitic mass (RBC) 31.4 pg 27.0-32.0 [facility] Work Phone: [phone] MCHC mass conc (RBC) 34.5 G/GL 32-[address] [facility] Work Phone: [phone] MCV Entitic volume (RBC) 91.2 fL 80-94 [facility] Work Phone: [phone] Monocytes/100 WBC (Bld) 8.4 % 0-10 [facility] Work Phone: [phone] Neutrophils #/vol (Bld) 4.2 X10 3/UL 2.0-7.7 [facility] Work Phone: [phone] Neutrophils/100 WBC (Bld) 68.9 % 47-70 [facility] Work Phone: [phone] Platelet mean volume Entitic volume (Bld) 10.3 fL 6.2-12.0 [facility] Work Phone: [phone] Platelets #/vol (Bld) 240 10*3/mm3 150-450 [facility] Work Phone: [phone] RBC #/vol (Bld) 4.52 10*6/uL Low 4.6-6.2 [facility] Work Phone: WBC #/vol (Bld) 6.1 10*3/uL 4.4-11.0 [facility] Work Phone: [phone] Office Visit: [facility] 03-30-20 17 Fall risk assessment No [facility] Work Phone: [phone] Left ventricular Ejection fraction 55 % [facility] Work Phone: [phone] Protein mass conc Done [facility] Work Phone: [phone] Replaced Document: Reginaldo Hernandez 03-30-2017 EKG QRS axis 21 deg [facility] Work Phone: [phone] Interpretation Atrial fibrillation Low voltage in limb leads. -Poor R-wave progression -may be secondary to pulmonary disease consider old anterior infarct. ABNORMAL [facility] Work Phone: [phone] P [place] 1 deg [facility] Work Phone: [phone] MS Interval 0 ms [facility] Work Phone: [phone] QRS Duration 90 ms [facility] Work Phone: [phone] QT Interval new path ms [facility] Work Phone: [phone] QTc Martinez 404 ms [facility] Work Phone: [phone] T [place] -1 deg [facility] Work Phone: [phone] Lab Report: Basic Metabolic Profile (BMP)on 03-18-2017 Anion gap molar conc 2 mmol/L Low 5-[address] [facility] Work Phone: [phone] Calcium mass conc 8.4 mg/dL Low 8.5-10.1 [facility] Work Phone: [phone] Chloride molar conc 107 mmol/L 98-107 [facility] Work Phone: [phone] CO2 ppres (BldV) 29.0 mmol/L 21.0-32.0 [facility] Work Phone: [phone] Creatinine mass conc 1.00 mg/dL 0.70-1.[address] [facility] Work Phone: [phone] EST GFR - AA 94 mL/min >60 [facility] Work Phone: [phone] GFR/1.73 sq M predicted among non-blacks MDRD vol rate/area (S/P/Bld) 78 mL/min/{1.73_m2} >60 [facility] Work Phone: [phone] Glucose mass conc 99 mg/dL 70-110 [facility] Work Phone: [phone] Potassium molar conc 4.2 mmol/L 3.5-5.[address] [facility] Work Phone: [phone] Sodium molar conc 138 mmol/L 136-145 [facility] Work [phone] Urea nitrogen mass conc 19 mg/dL High 7-18 [facility] Work Phone: [phone] Urea nitrogen/Creatinine mass ratio 19.0 RATIO 10-20 [facility] Work Phone: [phone] Lab Report: CBC-Complete Blo od Cnt No Diffon 03-18-2017 Erythrocyte distribution width Ratio (RBC) 13.9 % 11.6-14.6 [facility] Work Phone: [phone] Erythrocyte distribution width Ratio (RBC) 46.1 fL High 35.1-43.9 [facility] Work Phone: [phone] Hematocrit Volume Fraction (Bld) 37.5 % Low 40-54 [facility] Work Phone: [phone] Hemoglobin mass conc (Bld) 12.7 g/dL Low 13.0-16.5 [facility] Work Phone: [phone] MCH Entitic mass (RBC) 31.4 pg 27.0-32.0 [facility] Work Phone: [phone] MCHC mass conc (RBC) 33.9 G/GL 32-[address] [facility] Work Phone: [phone] MCV Entitic volume (RBC) 92.8 fL 80-94 [facility] Work Phone: [phone] Platelet mean volume Entitic volume (Bld) 10.3 fL 6.2-12.0 [facility] Work Phone: [phone] Platelets #/vol (Bld) 213 10*3/mm3 150-450 [facility] Work Phone: [phone] RBC #/vol (Bld) 4.04 10*6/uL Low 4.6-6.2 [facility] Work Phone: [phone] WBC #/vol (Bld) 6.1 10*3/uL 4.4-11.0 [facility] Work Phone: [phone] Replaced Document: Reginaldo Hernandez 03-04-2017 EKG QRS axis 29 deg [facility] Work Phone: [phone] electrocardiogram interpretation Atrial fibrillation ABNORMAL RHYTHM Invalid Interpretation Code [facility] Work Phone: [phone] GE use only - for [employer] import when terms are not otherwise specified 407 ms Invalid Interpretation Code [facility] Work Phone: [phone] Interpretation Atrial fibrillation ABNORMAL RHYTHM [facility] Work Phone: [phone] P [place] 1 deg [facility] Work Phone: [phone] P wave axis, electrocardiogram 1 deg Invalid Interpretation Code [facility] Work Phone: [phone] MS Interval 0 ms [facility] Work Phone: [phone] MS interval, electrocardiogram 0 ms Invalid Interpretation Code [facility] Work Phone: [phone] Pulse (Heart Rate) 78 /min Invalid Interpretation Code [facility] Work Phone: [phone] QRS axis, electrocardiogram 29 deg Invalid Interpretation Code [facility] Work Phone: [phone] QRS Duration 90 ms [facility] Work Phone: [phone] QRS duration, electrocardiogram 90 ms Invalid Interpretation Code [facility] Work Phone: [phone] QT Interval new path ms [facility] Work Phone: [phone] QT interval, electrocardiogram new path ms Invalid Interpretation Code [facility] Work Phone: [phone] QTc Martinez 407 ms [facility] Work Phone: [phone] T [place] -1 deg [facility] Work Phone: [phone] T wave axis, electrocardiogram -1 deg Invalid Interpretation Code [facility] Work Phone: [phone] Vital Signs Date Time Vital Sign Value Performing Clinician Facility 03-16-2025 07:59-0400 Body height 170.2 cm Jessica Funk MD Work Phone: [facility] 03-16-2025 07:59-0400 Body mass index (BMI) [Ratio] 30.92 kg/m2 Jessica Funk MD Work Phone: [facility] 03-16-2025 07:59-0400 Body weight 89.54 kg Jessica Funk MD Work Phone: [facility] 03-16-2025 07:59-0400 Diastolic blood pressure 78 mm[Hg] Jessica Funk MD Work Phone: [facility] 03-16-2025 07:59-0400 Heart rate 68 /min Jessica Funk MD Work Phone: [facility] 03-16-2025 07:59-0400 Systolic blood pressure 136 mm[Hg] Jessica Funk MD Work Phone: [facility] 11-29-2024 14:05-0500 Heart rate 72 /min Brian Griffith MD Work Phone: [facility] 11-29-2024 14:05-0500 Respiratory rate 16 /min Brian Griffith MD Work Phone: [facility] 11-29-2024 14:00-0500 Diastolic blood pressure 78 mm[Hg] Brian Griffith MD Work Phone: [facility] 11-29-2024 14:00-0500 SaO2% (BldA) [Mass fraction] 99 % Brian Griffith MD Work Phone: [facility] 11-29-2024 14:00-0500 Systolic blood pressure 116 mm[Hg] Brian Griffith MD Work Phone: [facility] 11-29-2024 13:45-0500 Body temperature 97.39 [degF] Brian Griffith MD Work Phone: [facility] 11-23-2024 13:45-0500 Body height 170.2 cm Brian Griffith MD Work Phone: [facility] 11-23-2024 13:45-0500 Body mass index (BMI) [Ratio] 30.7 kg/m2 Brian Griffith MD Work Phone: [facility] 11-23-2024 13:45-0500 Body weight 88.91 kg Brian Griffith MD Work Phone: [facility] 11-18-2024 09:09-0500 Diastolic blood pressure 81 mm[Hg] Brian Griffith MD Work Phone: [facility] 11-18-2024 09:09-0500 Heart rate 78 /min Brian Griffith MD Work Phone: [facility] 11-18-2024 09:09-0500 Systolic blood pressure 121 mm[Hg] Brian Griffith MD Work Phone: [facility] 10-28-2024 09:15-0500 Diastolic blood pressure 81 mm[Hg] Brian Griffith MD Work Phone: [facility] 10-28-2024 09:15-0500 Heart rate 78 /min Brian Griffith MD Work Phone: [facility] 10-28-2024 09:15-0500 Systolic blood pressure 128 mm[Hg] Brian Griffith MD Work Phone: [facility] 03-15-2024 07:48-0400 Body height 170.2 cm Jessica Funk MD Work Phone: [facility] 03-15-2024 07:48-0400 Body mass index (BMI) [Ratio] 31.5 kg/m2 Jessica Funk MD Work Phone: [facility] 03-15-2024 07:48-0400 Body weight 91.22 kg Jessica Funk MD Work Phone: [facility] 03-15-2024 07:48-0400 Diastolic blood pressure 62 mm[Hg] Jessica Funk MD Work Phone: [facility] 03-15-2024 07:48-0400 Heart rate 64 /min Jessica Funk MD Work Phone: [facility] 03-15-2024 07:48-0400 SaO2% (BldA) [Mass fraction] 97 % Jessica Funk MD Work Phone: [facility] 03-15-2024 07:48-0400 Systolic blood pressure 136 mm[Hg] Jessica Funk MD Work Phone: [phone] [place] [address] 02-02-2024 10:41-0400 Body height 170.2 cm Jessica Funk MD Work Phone: [phone] [place] [address] 02-02-2024 10:41-0400 Body mass index (BMI) [Ratio] 31.22 kg/m2 Jessica Funk MD Work Phone: [phone] [place] [address] 02-02-2024 10:41-0400 Body weight 90.42 kg Jessica Funk MD Work Phone: [phone] [place] [address] 02-02-2024 10:41-0400 Diastolic blood pressure 68 mm[Hg] Jessica Funk MD Work Phone: [phone] [place] [address] 02-02-2024 10:41-0400 Heart rate 53 /min Jessica Funk MD Work Phone: [facility] 02-02-2024 10:41-0400 SaO2% (BldA) [Mass fraction] 97 % Jessica Funk MD Work Phone: [phone])309-851284 [place] [address] 02-02-2024 10:41-0400 Systolic blood pressure 140 mm[Hg] Jessica Funk MD Work Phone: [facility] 10-14-2023 09:16-0500 Body height 172.[address] Rosibel Acosta Work Phone: [facility] 10-14-2023 09:12-0500 Body mass index (BMI) [Ratio] 29.3 kg/m2 Dr. Rosibel Acosta Work Phone: [facility] 10-14-2023 09:12-0500 Body weight 87.[address] Rosibel Acosta Work Phone: [facility] 10-14-2023 09:12-0500 Diastolic blood pressure 71 mm[Hg] Dr. Rosibel Acosta Work Phone: [facility] 10-14-2023 09:12-0500 Heart rate 62 /min Dr. Rosibel Acosta Work Phone: [facility] 10-14-2023 09:12-0500 Respiratory rate 18 /min Dr. Rosibel Acosta Work Phone: [facility] 10-14-2023 09:12-0500 SaO2% (BldA) [Mass fraction] 97 % Dr. Rosibel Acosta Work Phone: [facility] 10-14-2023 09:12-0500 Systolic blood pressure 118 mm[Hg] Dr. Rosibel Acosta Work Phone: [facility] 04-21-2017 13:05-0400 BMI (Body Mass Index) 33.96 kg/m2 [facility] Work Phone: 04-21-2017 13:05-0400 BP Diastolic 70 mm[Hg] [facility] Work Phone: 04-21-2017 13:05-0400 BP Systolic 150 mm[Hg] [facility] Work Phone: 04-21-2017 13:05-0400 Height 175.26 cm [facility] Work Phone: 04-21-2017 13:05-0400 Pulse (Heart Rate) 42 /min [facility] Work Phone: 04-21-2017 13:05-0400 Respiratory Rate 20 /min Carissa Montero [facility] Work Phone: 04-21-2017 13:05-0400 Weight 104.33 kg Carissa Montero [facility] Work Phone: 04-21-2017 13:01-0400 Heart rate 42 /min Carissa Montero [facility] Work Phone: 03-30-2017 12:17-0400 BMI (Body Mass Index) 34.18 kg/m2 Jose Alford NP [facility] Work Phone: 03-30-2017 12:17-0400 BP Diastolic 70 mm[Hg] Jose Alford ENERGY TRADING ANALYST [facility] Work Phone: 03-30-2017 12:17-0400 BP Systolic 110 mm[Hg] Jose Alford ENERGY TRADING ANALYST [facility] Work Phone: 03-30-2017 12:17-0400 Height 175.26 cm Jose Alford ENERGY TRADING ANALYST [facility] Work Phone: 03-30-2017 12:17-0400 Pulse (Heart Rate) 73 /min Jose Alford ENERGY TRADING ANALYST [facility] Work Phone: 03-30-2017 12:17-0400 Respiratory Rate 2 /min Jose Alford ENERGY TRADING ANALYST [facility] Work Phone: 03-30-2017 12:17-0400 Weight 105.01 kg Jose Alford NP [facility] Work Phone: 03-30-2017 11:37-0400 Heart rate 73 /min Juany Ray [facility] Work Phone: 03-04-2017 09:27-0400 Heart rate 78 /min Pinky Yoon RN [facility] Work Phone: Encounters Encounter Date Encounter Type Care Provider Facility Start: 03-22-2025 End: 03-22-2025 Patient encounter procedure Brian Griffith MD Work Phone: Ophthalmology Comment on above: Status post cataract extraction and insertion of intraocular lens of left eye (Primary Dx); Combined forms of age-related cataract of right eye Start: 03-22-2025 End: 03-22-2025 ambulatory BRIAN GRIFFITH Facility:[facility] Start: 03-16-2025 End: 03-16-2025 Patient encounter procedure Jessica Funk MD Work Phone: [facility] Comment on above: Routine general medi herminio examination at a health care facility (Primary Dx); Advanced care planning/counseling discussion; Screening for alcohol problem; Stage 3b chronic kidney disease (Multi); Subclinical hypothyroidism; Longstanding persistent atrial fibrillation (Multi) Start: 03-16-2025 End: 03-16-2025 Patient encounter status Jessica Funk MD Work Phone: [facility] Work Phone: Start: 03-16-2025 End: 03-16-2025 ambulatory JESSICA M [facility] Ambulatory Start: 03-16-2025 End: 03-16-2025 Encounter for general adult medical examination without abnormal findings [facility] Start: 02-01-2025 End: 02-01-2025 Patient encounter procedure Steven Lu OD Work Phone: Optometry Comment on above: Status post cataract extraction and insertion of intraocular lens of left eye (Primary Dx); 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; Endothelial corneal dystrophy of both eyes; Regular astigmatism of both eyes Start: 02-01-2025 End: 02-01-2025 ambulatory STEVEN LU II Facility:[facility] Start: 01-23-2025 End: 01-23-2025 Patient encounter procedure Brian Girffith MD Work Phone: Ophthalmology Comment on above: Combined forms of ag e-related cataract of right eye (Primary Dx); Status post cataract extraction and insertion of intraocular lens of left eye Start: 01-23-2025 End: 01-23-2025 ambulatory BRIAN GRIFFITH Facility:[facility] Start: 12-23-2024 End: 12-23-2024 Patient encounter procedure Brian Griffith MD Work Phone: Ophthalmology Comment on above: Combined forms of ag e-related cataract of right eye (Primary Dx); Status post cataract extraction and insertion of intraocular lens of left eye Start: 12-23-2024 End: 12-23-2024 ambulatory BRIAN GRIFFITH Facility:[facility] Start: 12-14-2024 End: 12-14-2024 ambulatory STEVEN LU II Facility:[facility] Start: 12-14-2024 End: 12-14-2024 Patient encounter procedure Steven uL OD Work Phone: Optometry Comment on above: Status post cataract extraction and insertion of intraocular lens of left eye (Primary Dx) Start: 12-07-2024 End: 12-07-2024 ambulatory STEVEN LU II Facility:[facility] Start: 12-07-2024 End: 12-07-2024 Patient encounter procedure Steven Lu OD Work Phone: Optometry Comment on above: Status post cataract extraction and insertion of intraocular lens of left eye (Primary Dx) Start: 12-02-2024 End: 12-02-2024 ambulatory BRIAN GRIFFITH Facility:[facility] Start: 12-02-2024 End: 12-02-2024 Patient encounter procedure Brian Griffith MD Work Phone: Ophthalmology Comment on above: Combined forms of ag e-related cataract of right eye (Primary Dx); Status post cataract extraction and insertion of intraocular lens of left eye Start: 11-30-2024 End: 11-30-2024 ambulatory BRIAN GRIFFITH Facility:[facility] Start: 11-30-2024 End: 11-30-2024 Patient encounter procedure Brian Griffith MD Work Phone: Ophthalmology Comment on above: Combined forms of ag e-related cataract of right eye (Primary Dx); Status post cataract extraction and insertion of intraocular lens of left eye Start: 11-29-2024 ambulatory BRIAN GRIFFITH [facility] Start: 11-29-2024 End: 11-29-2024 Subsequent hospital visit by physician Brian Griffith MD Work Phone: LD SURGERY Comment on above: Combined forms of ag e-related cataract of left eye [H25.812] Start: 11-22-2024 End: 11-22-2024 Orders Only Brian Griffith MD Work Phone: [facility] Comment on above: Combined forms of ag e-related cataract of left eye (Primary Dx) Start: 11-18-2024 End: 11-18-2024 ambulatory BRIAN GRIFFITH Facility:[facility] Start: 11-18-2024 End: 11-18-2024 Patient encounter procedure Brian Griffith MD Work Phone: Ophthalmology Comment on above: Combined form of age -related cataract, left eye (Primary Dx); Combined form of age-related cataract, right eye; Pupillary miosis; Atrial fibrillation, unspecified type (HCC); Hypothyroidism, unspecified type Start: 11-16-2024 End: 11-16-2024 ambulatory Rosibel Acosta Facility:[facility] Start: 11-16-2024 End: 11-16-2024 ambulatory Jessica Funk Facility:[facility] Start: 10-28-2024 End: 10-28-2024 ambulatory BRIAN GRIFFITH Facility:[facility] Start: 10-28-2024 End: 10-28-2024 Patient encounter procedure Brian Griffith MD Work Phone: Ophthalmology Comment on above: Combined form of age -related cataract, left eye (Primary Dx); Combined form of age-related cataract, right eye; Pupillary miosis; Atrial fibrillation, unspecified type (HCC); Hypothyroidism, unspecified type Start: 10-25-2024 End: 10-25-2024 ambulatory DAMIAN LU Facility:[facility] Start: 10-25-2024 End: 10-25-2024 Patient encounter procedure Damian Lu OD Work Phone: Optometry Comment on above: Combined forms of ag e-related cataract, bilateral (Primary Dx); Vitreous floaters of both eyes; Posterior vitreous detachment of right eye Start: 04-27-2024 End: 04-27-2024 ambulatory JESSICA FUNK [facility] Start: 04-15-2024 End: 04-15-2024 ambulatory DAVID MOCTEZUMA Facility:[facility] Start: 03-15-2024 End: 03-15-2024 Assay of hemosiderin, quant Jessica Funk MD Work Phone: [facility] Work Phone: Start: 03-15-2024 End: 03-15-2024 Patient encounter procedure Jessica Funk MD Work Phone: [facility] Comment on above: Routine general medi herminio examination at health care facility (Primary Dx); Screen for colon cancer; Need for vaccination; Subclinical hypothyroidism; Longstanding persistent atrial fibrillation (Multi); Hyperlipidemia, unspecified hyperlipidemia type; Anemia, unspecified type; Advanced care planning/counseling discussion; Stage 3b chronic kidney disease (Multi) Start: 02-15-2024 End: 02-15-2024 ambulatory JESSICA FUNK [facility] Start: 02-02-2024 End: 02-02-2024 Office outpatient new 30 minutes Jessica Funk MD Work Phone: [facility] Comment on above: Longstanding persist ent atrial fibrillation (Multi) (Primary Dx); Sun-damaged skin Start: 01-08-2024 End: 01-08-[address] Rosibel Acosta Work Phone: [facility] Work Phone: Start: 01-08-2024 End: 01-08-[address] Rosibel Acosta Work Phone: [facility] Work Phone: Start: 01-08-2024 End: 01-08-2024 ambulatory Shana Nichols NP Facility:[facility] Start: 11-25-2023 End: 11-25-[address] Rosibel Acosta Work Phone: [facility] Work Phone: Start: 10-20-2023 Non-patient / Non-visit Dr. Bertrand Work Phone: [facility] Start: 10-19-2023 End: 10-19-[address] Rosibel Acosta Work Phone: [facility] Work Phone: Start: 10-19-2023 End: 10-19-[address] Rosibel Acosta Work Phone: [facility] Work Phone: Start: 10-14-2023 End: 10-14-[address] Rosibel Acosta Work Phone: [facility] Work Phone: Start: 10-14-2023 End: 10-14-[address] Rosibel Acosta Work Phone: [facility] Work Phone: Start: 09-05-2020 Patient encounter procedure [facility] Work Phone: Start: 08-29-2020 Patient encounter procedure [facility]ellie [facility] Work Phone: Start: 08-27-2020 Patient encounter procedure [facility] Work Phone: Start: 01-10-2019 Patient encounter procedure Facility:[id number] Start: 01-04-2019 End: 01-05-2019 Patient encounter procedure IVORY FUCHS Facility:B Start: 12-20-2018 Patient encounter procedure IVORY FUCHS Facility:B Start: 12-06-[address] Dina Acosta Work Phone: [facility] Start: 08-17-2018 Patient encounter procedure Facility:[id number] Procedures Date Procedure Procedure Detail Performing Clinician Start: 03-22-2025 IOL BIOMETRY W/ IOL CALC OD (RIGHT EYE) Brian Griffith MD Work Phone: Start: 01-23-2025 Computerized ophthal giovanny imaging retina Brian Griffith MD Work Phone: Start: 11-18-2024 IOL BIOMETRY W/ IOL CALC OU (BOTH EYES) Brian Griffith MD Work Phone: Start: 10-28-2024 Computerized ophthal giovanny imaging retina Brian Griffith MD Work Phone: Start: 10-28-2024 IOL BIOMETRY W/ IOL CALC OU (BOTH EYES) Brian Griffith MD Work Phone: Start: 04-27-2024 Thyrotropin [Units/v olume] in Serum or Plasma Jessica Funk MD Work Phone: Start: 02-15-2024 CBC W Auto Different ial panel - Blood JESSICA FUNK Start: 02-15-2024 Comprehensive metabo lic 2000 panel - Serum or Plasma JESSICA FUNK Start: 02-15-2024 Lipid panel [facility] Start: 02-15-2024 THYROXINE, FREE JESSICA Y [facility]ATER Start: 02-15-2024 TSH WITH REFLEX TO F REE T4 IF ABNORMAL JESSICA FUNK Start: 02-15-2024 Lipid 1996 panel - S olvin or Plasma Jessica Funk MD Work Phone: Start: 02-15-2024 Thyrotropin [Units/v olume] in Serum or Plasma Jessica Funk MD Work Phone: Start: 10-14-2023 Plain chest X-ray Dr. Dina Acosta Work Phone: Start: 03-30-2017 End: 03-30-2017 Dietary management education, guidance, and counseling Jose Alford NP Start: 03-30-2017 End: 03-30-2017 *CBC with Differential [...] Treatment Date Care Activity Detail Author Start: 03-16-2034 DTaP/Tdap/Td Vaccines (2 - Td or Tdap) DTaP/Tdap/Td Vaccines (2 - Td or Tdap) [facility] Start: 03-16-2034 Urine microalbumin profile DTaP,Tdap,Td Vaccine (2 - Td or Tdap) [facility] Start: 02-14-2029 Lipid panel Lipid Panel [facility] Start: 03-16-2028 Diabetes Screening Diabetes Screening [facility] Start: 11-16-2027 Diabetes Screening Diabetes Screening [facility] Start: 04-27-2027 Diabetes Screening Diabetes Screening [facility] Start: 03-26-2026 End: 03-26-2026 Patient encounter procedure 03/26/2026 3:00 PM EDT Office Visit [place] [address] [place] [address] [facility] [address] [address] cataract Ophthalmology Comment on above: cataract Start: 03-17-2026 Medicare Annual Wellness Visit Medicare Annual Wellness Visit (AWV) [facility] Start: 09-14-2025 End: 09-14-2025 Patient encounter procedure 09/14/2025 9:20 AM EST Office Visit [address] [id number] Jessica Funk MD [address] [place] [id number] [facility] Start: 06-05-2025 Influenza vaccination Influenza Vaccine (Season Ended) [facility] Start: 04-27-2025 Thyroid stimulating hormone measurement TSH Level [facility] Start: 03-22-2025 End: 03-22-2025 Patient encounter procedure 03/22/2025 9:45 AM EDT Office Visit [facility] [address] [place] [address] Brian Griffith MD [address] [place] [address] cataract follow up Ophthalmology Comment on above: cataract follow up Start: 03-16-2025 End: 03-16-2026 Basic metabolic 2000 panel - Serum or Plasma Basic metabolic panel Lab Routine Stage 3b chronic kidney disease (Multi) Expected: 03/16/2025 (Approximate), Expires: 03/16/2026 [facility] Work Phone: Comment on above: Expected: 03/16/2025 (Approximate), Expi res: 03/16/2026 Start: 03-16-2025 End: 03-16-2026 Microalbumin/Creatinine [Mass Ratio] in Urine Albumin-Creatinine Ratio, Urine Random Lab Routine Stage 3b chronic kidney disease (Multi) Expected: 03/16/2025 (Approximate), Expires: 03/16/2026 [facility] Work Phone: Comment on above: Expected: 03/16/2025 (Approximate), Expi res: 03/16/2026 Start: 03-16-2025 End: 03-16-2026 Thyrotropin [Units/volume] in Serum or Plasma TSH Lab Routine Subclinical hypothyroidism Expected: 03/16/2025 (Approximate), Expires: 03/16/2026 [facility] Service Area Work Phone: Comment on above: Expected: 03/16/2025 (Approximate), Expi res: 03/16/2026 Start: 03-16-2025 End: 03-16-2025 Patient encounter procedure 03/16/2025 8:00 AM EDT Office Visit [facility] [address] [place] [id number] Jessica Funk MD [address] [facility] [place], [place] [id number] [facility] Start: 02-14-2025 Thyroid stimulating hormone measurement TSH Level [facility] Start: 02-12-2025 End: 03-15-2025 CBC W Auto Differential panel - Blood CBC and Auto Differential Lab Routine Anemia, unspecified type Expected: 02/12/2025 (Approximate), Expires: 03/15/2025 [facility] Work Phone: Comment on above: Expected: 02/12/2025 (Approximate), Expi res: 03/15/2025 Start: 02-12-2025 End: 03-15-2025 Comprehensive metabolic 2000 panel - Serum or Plasma Comprehensive metabolic panel Lab Routine Longstanding persistent atrial fibrillation (Multi) Expected: 02/12/2025 (Approximate), Expires: 03/15/2025 [facility] Work Phone: Comment on above: Expected: 02/12/2025 (Approximate), Expi res: 03/15/2025 Start: 02-12-2025 End: 03-15-2025 Lipid 1996 panel - Serum or Plasma Lipid panel Lab Routine Hyperlipidemia, unspecified hyperlipidemia type Expected: 02/12/2025 (Approximate), Expires: 03/15/2025 [facility] Work Phone: Comment on above: Expected: 02/12/2025 (Approximate), Expi res: 03/15/2025 Start: 02-12-2025 End: 03-15-2025 Thyrotropin [Units/volume] in Serum or Plasma TSH Lab Routine Subclinical hypothyroidism Expected: 02/12/2025 (Approximate), Expires: 03/15/2025 [facility] Work Phone: Comment on above: Expected: 02/12/2025 (Approximate), Expi res: 03/15/2025 Start: 02-01-2025 End: 02-01-2025 Patient encounter procedure 02/01/2025 11:00 AM EDT Office Visit [facility] [address] [place] [address] Steven Lu II, OD [address] [place] [address] refraction/glasses Optometry Comment on above: refraction/glasses Start: 01-23-2025 End: 01-23-2025 Patient encounter procedure 01/23/2025 11:30 AM EDT Office Visit [facility] [address] [place] [address] Brian Griffith MD [address] [place] [id number] post op Ophthalmology Comment on above: post op Start: 12-23-2024 End: 12-23-2024 Patient encounter procedure 12/23/2024 11:30 AM EDT Office Visit [facility] [address] [place] [address] Brian Griffith MD [address] [place] [address]157 post op 1 month Ophthalmology Comment on above: post op 1 month Start: 12-14-2024 End: 12-14-2024 Patient encounter procedure 12/14/2024 9:00 AM EDT Office Visit [facility] [address] [place] [address] Steven Lu II, OD [address] [place] [address] post op- pressure check Optometry Comment on above: post op- pressure check Start: 12-07-2024 End: 12-07-2024 Patient encounter procedure 12/07/2024 8:30 AM EST Office Visit [facility] [address] [place] [address] Steven Lu II, OD [address] [place] [address] post op Optometry Comment on above: post op Start: 12-02-2024 End: 12-02-2024 Patient encounter procedure 12/02/2024 11:30 AM EST Office Visit [facility] [address] [place] [address] Brian Griffith MD [address] [place] [id number] post op Ophthalmology Comment on above: post op Start: 11-30-2024 End: 11-30-2024 Patient encounter procedure 11/30/2024 8:30 AM EST Office Visit [facility] [address] [place] [address] Brian Griffith MD [address] [place] [id number] 1 DAY PO 1ST LE Ophthalmology Comment on above: 1 DAY PO 1ST LE Start: 11-29-2024 End: 11-29-2024 Admission to same day surgery center 11/29/2024 1:13 PM EST - 11/29/2024 1:51 PM EST Surgery LD SURGERY [address] [place] [address] Brian Griffith MD [address] [place] [address] [id number] PHACOEMULSIFICATION CATARACT IMPLANT INTRAOCULAR LENS W/O ENDOSCOPIC CYCLOPHOTOCOAGULATION LD SURGERY Comment on above: PHACOEMULSIFICATION CATARACT IMPLANT INT RAOCULAR LENS W/O ENDOSCOPIC CYCLOPHOTOCOAGULATION Start: 11-29-2024 End: 11-29-2024 Oph bmtry prtl coher intrfrmtry io lens pwr herminio OPHTHALMIC BIOMETRY BY PARTIAL COHERENCE INTERFEROMETRY W/INTRAOCULAR LENS POWER CALCULATION Combined forms of age-related cataract of left eye 11/29/2024 1:13 PM EST LD OR Start: 11-29-2024 Subsequent hospital visit by physician 11/29/2024 1:13 PM EST Hospital Encounter [facility] [address] [place] [address] Brian Griffith MD [address] [place] [address] Combined forms of age-related cataract of left eye [H25.812] LD SURGERY Comment on above: Combined forms of age-related cataract o f left eye [H25.812] Start: 11-29-2024 End: 11-29-2024 Xcapsl ctrc rmvl insj io lens prosth w/o ecp PHACOEMULSIFICATION CATARACT IMPLANT INTRAOCULAR LENS W/O ENDOSCOPIC CYCLOPHOTOCOAGULATION Combined forms of age-related cataract of left eye 11/29/2024 1:13 PM EST LD OR Start: 11-18-2024 End: 11-18-2024 Patient encounter procedure 11/18/2024 9:30 AM EST Office Visit [facility] [address] [place] [address] Brian Griffith MD [address] [place] [address] consents 1st le basic Ophthalmology Comment on above: consents 1st le basic Start: 10-28-2024 End: 10-28-2024 Patient encounter procedure 10/28/2024 9:00 AM EST Office Visit [facility] [address] [place] [address] Brian Griffith MD [address] [place] [address] Cat Eval OS Ref By Tutu Lu Ophthalmology Comment on above: Cat Eval OS Ref By Tutu Lu Start: 10-05-2024 Advance Directive Discussion Advance Directive Discussion [facility] Start: 06-05-2024 Covid-19 Vaccine ( season) Covid-19 Vaccine ( season) [facility] Start: 06-05-2024 Influenza vaccination [facility] Start: 04-26-2024 End: 03-15-2025 Comprehensive metabolic 2000 panel - Serum or Plasma Comprehensive metabolic panel Lab Routine Longstanding persistent atrial fibrillation (Multi) Expected: 04/26/2024 (Approximate), Expires: 03/15/2025 [facility] Work Phone: Comment on above: Expected: 04/26/2024 (Approximate), Expi res: 03/15/2025 Start: 04-26-2024 End: 03-15-2025 Thyrotropin [Units/volume] in Serum or Plasma TSH Lab Routine Subclinical hypothyroidism Expected: 04/26/2024 (Approximate), Expires: 03/15/2025 [facility] Work Phone: Comment on above: Expected: 04/26/2024 (Approximate), Expi res: 03/15/2025 Start: 03-15-2024 End: 03-15-2025 Cologuard colon cancer screening Cologuard colon cancer screening Lab Routine Screen for colon cancer Expected: 03/15/2024 (Approximate), Expires: 03/15/2025 [facility] Service Area Work Phone: Comment on above: Expected: 03/15/2024 (Approximate), Expi res: 03/15/2025 Start: 03-15-2024 End: 03-15-2024 Patient encounter procedure 03/15/2024 8:00 AM EDT Office Visit [facility] [address] [place] [phone] Jessica Funk MD [address] [place], [place] [id number] [facility] Start: 06-05-2023 COVID-19 Vaccine () COVID-19 Vaccine () [facility] Start: 04-21-2017 End: 04-21-2017 Appointment Appointment [facility] Work Phone: Start: 04-21-2017 End: 04-21-2017 Appointment Appointment [facility] Work Phone: Start: 04-21-2017 End: 04-21-2017 CIPRIANO COTA [facility] Work Phone: Start: 04-21-2017 End: 04-21-2017 Follow Up Appt 6 months Follow Up Appt 6 months [facility] Work Phone: Start: 04-20-2017 End: 03-30-2017 *BMP *BMP [facility] Work Phone: Start: 03-30-2017 End: 03-30-2017 Appointment Appointment [facility] Work Phone: Start: 03-30-2017 End: 03-30-2017 Appointment Appointment [facility] Work Phone: Start: 03-30-2017 End: 03-30-2017 Appointment [facility] Work Phone: Start: 03-30-2017 End: 03-30-2017 *BMP *BMP [facility] Work Phone: Start: 03-30-2017 End: 03-30-2017 *CBC with Differential *CBC with Differential [facility] Work Phone: Start: 03-30-2017 End: 03-30-2017 Cardioversion Cardioversion [facility] Work Phone: Start: 03-30-2017 End: 03-30-2017 Chest x-ray X-Ray, Chest, PA & Lateral [facility] Work Phone: Start: 03-30-2017 End: 03-30-2017 Ecg routine ecg w/least 12 lds w/i&r EKG (In office) [facility] Work Phone: Start: 03-30-2017 End: 03-30-2017 Natriuretic peptide B mass conc (Bld) *Brain Natriuretic Peptide BNP [facility] Work Phone: Start: 03-04-2017 End: 03-04-2017 Appointment Appointment [facility] Work Phone: Start: 03-04-2017 End: 03-18-2017 *BMP *BMP [facility] Work Phone: Start: 03-04-2017 End: 03-18-2017 Cardioversion Cardioversion [facility] Work Phone: Start: 03-04-2017 End: 03-18-2017 CBC W Auto Differential panel - Blood *CBC without Diff [facility] Work Phone: Start: 03-04-2017 End: 03-30-2017 Electrocardiogram, complete EKG (In office) [facility] Work Phone: Start: 2009 Pneumococcal Vaccine: 65+ Years (1 of 1 - PCV) Pneumococcal Vaccine: 65+ Years (1 of 1 - PCV) [facility] Start: 03-05-2009 Medicare Annual Wellness Visit Medicare Annual Wellness Visit [facility] Start: 2004 RSV patients and/or patients aged 60+ years (1 - 1-dose 60+ series) RSV patients and/or patients aged 60+ years (1 - 1-dose 60+ series) [facility] Start: 1994 Zoster Vaccines (1 of 2) Zoster Vaccines (1 of 2) [facility] Start: 1966 DTaP/Tdap/Td Vaccines (1 - Tdap) DTaP/Tdap/Td Vaccines (1 - Tdap) [facility] Start: 1963 Urine screening for protein CKD: Urine Protein Screening [facility] Start: 1962 Annual PCP Team Chronic Disease Visit Annual PCP Team Chronic Disease Visit [facility] Start: 1962 Anxiety Screening Anxiety Screening [facility] Start: 1962 Depression Screening Depression Screening [facility] Start: 1962 Diabetes mellitus screening Diabetes Screening [facility] Start: 1962 Hepatitis C screening Hepatitis C Screening [facility] Start: 1944 Lipid panel Lipid Panel [facility] Start: 1944 Medicare Annual Wellness Visit Medicare Annual Wellness Visit (AWV) [facility] NEGATED: Highlighted row has been ruled out! Planned Goals not documented [facility] Work Phone: Immunizations Immunization Date Immunization Notes Care Provider Yung palm 03-15-2024 Pneumococcal conjuga te vaccine, 20-valent (PREVNAR 20) Jessica Funk MD Work Phone: [facility] Payers Date Payer Category Payer Self-pay [id number] 2019 Private Health Insurance MMO MED ICARE SUPPLEMENT [id number] 2019 Unknown MMO MMO MEDICARE SUPPLEMENT [id number] 2019-Present [phone] [address] [place] [address] Indemnity [id number] 2015 Unknown [id number] 2009 Medicare [id number] 2009 Medicare [id number] 1944 Unknown [id number] 627 1944 Unknown [id number] 627 1944 Unknown [id number]. 356 1944 Unknown [id number]. 124 1944 Unknown [id number]. 1245 1944 Unknown [id number] 1244 1943 Unknown [id number] 356 Medicare [id number] Unknown [id number] 462 Unknown [id number] 462 Unknown [id number] 462 Unknown [id number] 462 Unknown [id number] 462 Social History Date Type Detail Facility Assertion Tobacco smoking consumption unknown (finding) [facility] Work Phone: Start: 10-14-2023 End: 10-14-2023 Tobacco smoking status NHIS Unknown if ever smoked [facility] Start: 02-22-2017 None [facility] Start: 02-22-2017 Spouse/ Signif icant Other [facility] Start: 08-07-2020 Non-smoker [facility] Start: 1945 Sex Assigned At Male [facility] Start: 12-25-2015 End: 02-02-2024 Tobacco smoking status NHIS Never smoked tobacco [facility] Work Phone: Start: 12-25-2015 End: 02-02-2024 Tobacco use and exposure Smokeless tobacco non-user [facility] Work Phone: Start: 02-02-2024 End: 03-16-2025 Alcoholic beverage intake Lifetime non-drinker (finding) [facility] Work Phone: Start: 1945 Sex assigned at Not on file [facility] Work Phone: Start: 02-02-2024 End: 12-14-2024 Gender identity Not on file [facility] Work Phone: Start: 01-23-2024 End: 03-16-2025 Exposure to SARS-CoV-2 (event) Not sure [facility] Start: 02-02-2024 End: 12-14-2024 History of Social function [facility] Work Phone: Start: 10-25-2024 End: 03-22-2025 Alcoholic beverage intake Current non-drinker of alcohol (finding) [facility] National Score (1-100), lower number is lower risk Not on file [facility] NEGATED: Highlighted rowStart: NINF History of tobacco use Passive smoker [facility] Work Phone: Medical Equipment Procedure Code Equipment Code Equipment Origin al Text Equipment Identifier Dates Minimally invasive total replacement of hip joint by anterior approach 127 DEGREE ANGLE STEM FDA Start: 08-22-2020 Minimally invasive total replacement of hip joint by anterior approach POLY INSERT FDA Start: 08-22-2020 Minimally invasive total replacement of hip joint by anterior approach SOLID BACK ACTEBULAR SHELL FDA Start: 08-22-2020 Minimally invasive total replacement of hip joint by anterior approach V40 FEMORAL HEAD FDA Start: 08-22-2020 Minimally invasive total replacement of hip joint by anterior approach 127 DEGREE ANGLE STEM FDA Start: 08-22-2020 Minimally invasive total replacement of hip joint by anterior approach POLY INSERT FDA Start: 08-22-2020 Minimally invasive total replacement of hip joint by anterior approach SOLID BACK ACTEBULAR SHELL FDA Start: 08-22-2020 Minimally invasive total replacement of hip joint by anterior approach V40 FEMORAL HEAD FDA Start: 08-22-2020 Minimally invasive total replacement of hip joint by anterior approach 127 DEGREE ANGLE STEM FDA Start: 08-22-2020 Minimally invasive total replacement of hip joint by anterior approach POLY INSERT FDA Start: 08-22-2020 Minimally invasive total replacement of hip joint by anterior approach SOLID BACK ACTEBULAR SHELL FDA Start: 08-22-2020 Minimally invasive total replacement of hip joint by anterior approach V40 FEMORAL HEAD FDA Start: 08-22-2020 [id number] Amanda on [facility] - [id number] Start: 11-29-2024 Functional Status Date Assessment Result Facility 03-16-2025 Patient Health Questionnaire 2 item (PHQ-2) [Reported] [facility] Work Phone: NEGATED: Highlighted row Functional performance Functional status health issues are not documented Disease [facility] Work Phone: Mental Status Date Assessment Result Facility NEGATED: Highlighted row Cognitive function [Interpretation] Cognitive status health issues are not documented Disease [facility] Work Phone: Clinical Notes 10-20-2023 to 03-22-2025 Patient InstructionsBrian Griffith MD - 03/22/2025 10:03 AM EDTAssessment & Plan Note - Jessica Funk MD - 03/16/2025 8:00 AM EDJodi Funk MD - 03/16/2025 8:00 AM EDT Note Date & Type Note Facility 03-22-2025 Note Date of Procedure 03/22/2025. Notes Measurements only - see Procedure Record under Scanned Documents for signed results. [facility] 03-22-2025 Instructions Brian Griffith MD - 03/22/2025 10:04 AM EDT If you have any questions please contact our office at [phone]. After office hours or on the weekend, please call Dr. Griffith on his cell phone at [phone]. documented in this encounter [facility] 03-22-2025 Note HNO ID: [id number] Author: BRIAN GRIFFITH MD Service: ? Author Type: Physician Type: Progress Notes Filed: 03/22/2025 10:04 Note Text: ASSESSMENT/PLAN: 1. Status post cataract extraction and insertion of intraocular lens of left eye - ICD9: V45.61, V43.1, ICD10: Z98.42, Z96.1 (primary diagnosis) - Intraocular lens in good position - Continue Systane Complete Artificial Tears - Use 1 Drop into both eyes three times a day. 2. Combined forms of age-related cataract of right eye - ICD9: 366.19, ICD10: H25.811 - Not visually significant - Return in 1 year or sooner if changes with vision I have confirmed and edited as necessary the relevant HPI, ophthalmic history, ROS, and the neuro exam findings as obtained by others. I have seen and examined Magali Ramos. I have discussed the case and the management of this patient's care with the Resident/Fellow, if applicable. I also have reviewed and agree with the assessment and plan as stated above and agree with all of its relevant components. [facility] 03-22-2025 History of Present illness Narrative ASSESSMENT/PLAN: 1. Status post cataract extraction and insertion of intraocular lens of left eye - ICD9: V45.61, V43.1, ICD10: Z98.42, Z96.1 (primary diagnosis) - Intraocular lens in good position - Continue Systane Complete Artificial Tears - Use 1 Drop into both eyes three times a day. 2. Combined forms of age-related cataract of right eye - ICD9: 366.19, ICD10: H25.811 - Not visually significant - Return in 1 year or sooner if changes with vision I have confirmed and edited as necessary the relevant HPI, ophthalmic history, ROS, and the neuro exam findings as obtained by others. I have seen and examined Magali Ramos. I have discussed the case and the management of this patient's care with the Resident/Fellow, if applicable. I also have reviewed and agree with the assessment and plan as stated above and agree with all of its relevant components. documented in this encounter [facility] 03-16-2025 Evaluation + Plan note Associated Problem(s): Stage 3b chronic kidney disease (Multi) Chronic problem, known to provider, requires continued workup and management Overall Niraj's kidney function appears to be stable but will obtain BMP as well as urine protein creatinine ratio to further evaluate Orders: Albumin-Creatinine Ratio, Urine Random; Future Basic metabolic panel; Future [facility] Work Phone: 03-16-2025 Evaluation + Plan note Associated Problem(s): Subclinical hypothyroidism Chronic problem, known to provider, requires continued workup and management He seems to need his doses between 25 and 50 mcg and we will obtain TSH today. If not within normal limits we will plan on having him alternate 25 and 50 mcg daily. Orders: TSH; Future [facility] Work Phone: 03-16-2025 Evaluation + Plan note Associated Problem(s): Atrial fibrillation (Multi) Chronic problem, known to provider, requires continued management Patient continues to be in persistent atrial fibrillation but he is rate controlled and overall asymptomatic We discussed some lifestyle modifications like standing up slowly and avoiding bending over if he is feeling dizzy and he voices understanding [facility] Work Phone: 03-16-2025 History of Present illness Narrative Subjective Reason for Visit: Magali Ramos is an 79 y.o. male here for a Medicare Wellness visit. Reviewed all medications by prescribing practitioner or clinical pharmacist (such as prescriptions, OTCs, herbal therapies and supplements) and documented in the medical record. 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 If he were unable to make his own medical decisions he would want his , Lindy to make his decisions. His second agent is daughter Idalmis and then son Jose. I talked with Niraj and his and he stated that he would not want to be resuscitated. He is okay with a temporary breathing tube but would not want a permanent trach/peg. He would not want artificial hydration/nutrition if in a permanent vegetative state. He does not use any alcohol. Problem based Visit: He is having intermittent dizziness and was told he had a fib during his cataract. If he gets up too quickly or bends over too quickly he feels some dizziness. Patient Care Team: Jessica Funk MD as PCP - General (Family Medicine) Review of Systems Objective Vitals: BP 136/78 Pulse 68 Ht 1.702 m (5' 7") Wt 89.5 kg (197 lb 6.4 oz) BMI 30.92 kg/m Physical Exam Vitals and nursing note reviewed. Constitutional: General: He is not in acute distress. Appearance: He is not ill-appearing. HENT: Head: Normocephalic and atraumatic. Mouth/Throat: Mouth: Mucous membranes are moist. Eyes: General: No scleral icterus. Right eye: No discharge. Left eye: No discharge. Extraocular Movements: Extraocular movements intact. Conjunctiva/sclera: Conjunctivae normal. Cardiovascular: Rate and Rhythm: Normal rate. Rhythm irregular. Pulmonary: Effort: Pulmonary effort is normal. No respiratory distress. Breath sounds: Normal breath sounds. Musculoskeletal: Right lower leg: No edema. Left lower leg: No edema. Skin: General: Skin is dry. Neurological: General: No focal deficit present. Mental Status: He is alert and oriented to person, place, and time. Psychiatric: Thought Content: Thought content normal. Judgment: Judgment normal. Assessment & Plan Routine general medical examination at a health care facility Personal Health Plan: - obtain TSH/urine protein - COVID vaccine Advanced care planning/counseling discussion We reviewed and updated all of Niraj's goals of care including that he would like his daughter Idalmis to be a secondary agent if needed. He continues to voice wishing to be DNR and this is already updated in his chart and he has his DNR form. Screening for alcohol problem Negative screening Stage 3b chronic kidney disease (Multi) Chronic problem, known to provider, requires continued workup and management Overall Niraj's kidney function appears to be stable but will obtain BMP as well as urine protein creatinine ratio to further evaluate Orders: Albumin-Creatinine Ratio, Urine Random; Future Basic metabolic panel; Future Subclinical hypothyroidism Chronic problem, known to provider, requires continued workup and management He seems to need his doses between 25 and 50 mcg and we will obtain TSH today. If not within normal limits we will plan on having him alternate 25 and 50 mcg daily. Orders: TSH; Future Longstanding persistent atrial fibrillation (Multi) Chronic problem, known to provider, requires continued management Patient continues to be in persistent atrial fibrillation but he is rate controlled and overall asymptomatic We discussed some lifestyle modifications like standing up slowly and avoiding bending over if he is feeling dizzy and he voices understanding Advance Directives Discussion 16 - 20 minutes were spent discussing Advanced Care Planning (including a Living Will, Medical Power Of Supervisor Sewer System, as well as specific end of life choices and/or directives). The details of that discussion were documented in Advanced Directives Discussion section of the medical record. Alcohol Misuse Screen 5 - 10 minutes were spent screening the patient for alcohol misuse disorder. Jessica Funk MD documented in this encounter [facility] Work Phone: 03-16-2025 Instructions Jesisca Funk MD - 03/16/2025 8:00 AM EDT Personal Health Plan: - obtain TSH/urine protein - COVID vaccine documented in this encounter [facility] Work Phone: 03-16-2025 Miscellaneous Notes Associated Problem(s): Stage 3b chronic kidney disease (Multi) Chronic problem, known to provider, requires continued workup and management Overall Niraj's kidney function appears to be stable but will obtain BMP as well as urine protein creatinine ratio to further evaluate Orders: Albumin-Creatinine Ratio, Urine Random; Future Basic metabolic panel; Future Associated Problem(s): Subclinical hypothyroidism Chronic problem, known to provider, requires continued workup and management He seems to need his doses between 25 and 50 mcg and we will obtain TSH today. If not within normal limits we will plan on having him alternate 25 and 50 mcg daily. Orders: TSH; Future Associated Problem(s): Atrial fibrillation (Multi) Chronic problem, known to provider, requires continued management Patient continues to be in persistent atrial fibrillation but he is rate controlled and overall asymptomatic We discussed some lifestyle modifications like standing up slowly and avoiding bending over if he is feeling dizzy and he voices understanding documented in this encounter [facility] Work Phone: 02-01-2025 Instructions Steven Lu II, OD - 02/01/2025 2:11 PM EDT Assessment and Plan Z98.42, Z96.1 Status post cataract extraction and insertion of intraocular lens of left eye (primary encounter diagnosis) 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 Corneal haze L>R improving. Update glasses to maximize visual performance. Recommend use of Systane Complete 1 gt OU qid and Lourdes 128 abida both eyes qhs. I have confirmed and edited as necessary the relevant HPI, ophthalmic history, ROS, and the neuro exam findings as obtained by others. I have seen and examined Magalileana Ramos. I have discussed the case and the management of this patient's care with the Resident/Fellow, if applicable. I also have reviewed and agree with the assessment and plan as stated above and agree with all of its relevant components. documented in this encounter [facility] 02-01-2025 Note HNO ID: [id number] Author: STEVEN LU II, OD Service: ? 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 Corneal haze L>R improving. Update glasses to maximize visual performance. Recommend use of Systane Complete 1 gt OU qid and Lourdes 128 abida both eyes qhs. I have confirmed and edited as necessary the relevant HPI, ophthalmic history, ROS, and the neuro exam findings as obtained by others. I have seen and examined Magali Ramos. I have discussed the case and the management of this patient's care with the Resident/Fellow, if applicable. I also have reviewed and agree with the assessment and plan as stated above and agree with all of its relevant components. 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 Corneal haze L>R improving. Update glasses to maximize visual performance. Recommend use of Systane Complete 1 gt OU qid and Lourdes 128 abida both eyes qhs. I have confirmed and edited as necessary the relevant HPI, ophthalmic history, ROS, and the neuro exam findings as obtained by others. I have seen and examined Magali Ramos. I have discussed the case and the management of this patient's care with the Resident/Fellow, if applicable. I also have reviewed and agree with the assessment and plan as stated above and agree with all of its relevant components. documented in this encounter [facility] 01-23-2025 Note Date of Procedure 01/23/2025. OCT Macula Interpretation Right Eye Normal foveal contour. Left Eye Normal foveal contour. [facility] 01-23-2025 Instructions Brian Griffith MD - 01/23/2025 11:29 AM EDT Continue: Systane Complete solution instill 1 drop 3 times daily Both Eyes. See Dr. Lu for refraction and glasses. If you have any questions please contact our office at [phone]. After office hours or on the weekend, please call Dr. Griffith on his cell phone at [phone]. documented in this encounter [facility] 01-23-2025 Note HNO ID: [id number] Author: BRIAN GRIFFITH MD Service: ? Author Type: Physician Type: Progress Notes Filed: 01/23/2025 11:31 Note Text: ASSESSMENT/PLAN: 1. Combined forms of age-related cataract of right eye - ICD9: 366.19, ICD10: H25.811 (primary diagnosis) - OCT MACULA CIRRUS OU (BOTH EYES) Plan Cataract Surgery with Monofocal Intraocular Lens Implant Right Eye when Left Eye is stable. 2. Status post cataract extraction and insertion of intraocular lens of left eye - ICD9: V45.61, V43.1, ICD10: Z98.42, Z96.1 - OCT MACULA CIRRUS OU (BOTH EYES) Patient declined Toric intraocular lens Left Eye. Continue: Systane Complete solution instill 1 drop 3 times daily Both Eyes. See Dr. Lu for refraction and glasses. I have confirmed and edited as necessary the relevant HPI, ophthalmic history, ROS, and the neuro exam findings as obtained by others. I have seen and examined Magali Ramos. I have discussed the case and the management of this patient's care with the Resident/Fellow, if applicable. I also have reviewed and agree with the assessment and plan as stated above and agree with all of its relevant components. [facility] 01-23-2025 History of Present illness Narrative ASSESSMENT/PLAN: 1. Combined forms of age-related cataract of right eye - ICD9: 366.19, ICD10: H25.811 (primary diagnosis) - OCT MACULA CIRRUS OU (BOTH EYES) Plan Cataract Surgery with Monofocal Intraocular Lens Implant Right Eye when Left Eye is stable. 2. Status post cataract extraction and insertion of intraocular lens of left eye - ICD9: V45.61, V43.1, ICD10: Z98.42, Z96.1 - OCT MACULA CIRRUS OU (BOTH EYES) Patient declined Toric intraocular lens Left Eye. Continue: Systane Complete solution instill 1 drop 3 times daily Both Eyes. See Dr. Lu for refraction and glasses. I have confirmed and edited as necessary the relevant HPI, ophthalmic history, ROS, and the neuro exam findings as obtained by others. I have seen and examined Magali Ramos. I have discussed the case and the management of this patient's care with the Resident/Fellow, if applicable. I also have reviewed and agree with the assessment and plan as stated above and agree with all of its relevant components. documented in this encounter [facility] 12-23-2024 Instructions Brian Griffith MD - 12/23/2024 11:25 AM EDT Current Ophthalmic Meds fluorometholone (FML LIQUID FILM) 0.1 % ophthalmic suspension Use 1 Drop in the right eye three times a day. Current Ophthalmic Meds prednisoLONE acetate (PRED FORTE) 1 % ophthalmic suspension Use 1 Drop in the left eye four times daily. keTORolac (ACULAR) 0.5 % ophthalmic solution Use 1 Drop in the left eye four times daily. Continue: Systane Complete solution instill 1 drop 3 times daily Both Eyes. Lourdes 128 5% ointment at bedtime Left Eye. If you have any questions please contact our office at [phone]. After office hours or on the weekend, please call Dr. Griffith on his cell phone at [phone]. documented in this encounter [facility] 12-23-2024 Note HNO ID: [id number] Author: BRIAN GRIFFITH MD Service: ? Author Type: Physician Type: Progress Notes Filed: 12/23/2024 11:25 Note Text: ASSESSMENT/PLAN: 1. Combined forms of age-related cataract of right eye - ICD9: 366.19, ICD10: H25.811 (primary diagnosis) Plan Cataract Surgery with Monofocal Intraocular Lens Implant Right Eye when Left Eye is stable. Current Ophthalmic Meds fluorometholone (FML LIQUID FILM) 0.1 % ophthalmic suspension Use 1 Drop in the right eye three times a day. Continue: Systane Complete solution instill 1 drop 3 times daily Both Eyes. 2. Status post cataract extraction and insertion of intraocular lens of left eye - ICD9: V45.61, V43.1, ICD10: Z98.42, Z96.1 Complex cataract surgery with use of [place] Ring Left Eye. Current Ophthalmic Meds prednisoLONE acetate (PRED FORTE) 1 % ophthalmic suspension Use 1 Drop in the left eye four times daily. keTORolac (ACULAR) 0.5 % ophthalmic solution Use 1 Drop in the left eye four times daily. Continue: Systane Complete solution instill 1 drop 3 times daily Both Eyes. Lourdes 128 5% ointment at bedtime Left Eye. I have confirmed and edited as necessary the relevant HPI, ophthalmic history, ROS, and the neuro exam findings as obtained by others. I have seen and examined Magali Ramos. I have discussed the case and the management of this patient's care with the Resident/Fellow, if applicable. I also have reviewed and agree with the assessment and plan as stated above and agree with all of its relevant components. [facility] 12-23-2024 History of Present illness Narrative ASSESSMENT/PLAN: 1. Combined forms of age-related cataract of right eye - ICD9: 366.19, ICD10: H25.811 (primary diagnosis) Plan Cataract Surgery with Monofocal Intraocular Lens Implant Right Eye when Left Eye is stable. Current Ophthalmic Meds fluorometholone (FML LIQUID FILM) 0.1 % ophthalmic suspension Use 1 Drop in the right eye three times a day. Continue: Systane Complete solution instill 1 drop 3 times daily Both Eyes. 2. Status post cataract extraction and insertion of intraocular lens of left eye - ICD9: V45.61, V43.1, ICD10: Z98.42, Z96.1 Complex cataract surgery with use of [place] Ring Left Eye. Current Ophthalmic Meds prednisoLONE acetate (PRED FORTE) 1 % ophthalmic suspension Use 1 Drop in the left eye four times daily. keTORolac (ACULAR) 0.5 % ophthalmic solution Use 1 Drop in the left eye four times daily. Continue: Systane Complete solution instill 1 drop 3 times daily Both Eyes. Lourdes 128 5% ointment at bedtime Left Eye. I have confirmed and edited as necessary the relevant HPI, ophthalmic history, ROS, and the neuro exam findings as obtained by others. I have seen and examined Magali Regalado Ramos. I have discussed the case and the management of this patient's care with the Resident/Fellow, if applicable. I also have reviewed and agree with the assessment and plan as stated above and agree with all of its relevant components. documented in this encounter [facility] 12-14-2024 Instructions Steven Lu II OD - 12/14/2024 9:25 AM EDT Assessment and Plan Z98.42, Z96.1 Status post cataract extraction and insertion of intraocular lens of left eye (primary encounter diagnosis) Comment: Brimonidine 0.2% controlling Intraocular pressure well. Continue use Brimonidine 0.2% 1 gt left eye twice a day. Corneal edema OS persists reducing acuity. No macular edema. Continue post op medications Pred Forte and Ketorolac both 1 gt left eye three times a day. Scheduled to see Dr. Griffith in 9 days. Instruct patient to immediately report any change in condition outside of expected and discussed symptoms. I have confirmed and edited as necessary the relevant HPI, ophthalmic history, ROS, and the neuro exam findings as obtained by others. I have seen and examined Magali Regalado Dov. I have discussed the case and the management of this patient's care with the Resident/Fellow, if applicable. I also have reviewed and agree with the assessment and plan as stated above and agree with all of its relevant components. documented in this encounter [facility] 12-14-2024 Note HNO ID: [id number] Author: STEVEN LU II, OD Service: ? Author Type: STE[employer] POWER PLANT OPERATOR Type: Progress Notes Filed: 12/14/2024 09:25 Note Text: Assessment and Plan Z98.42, Z96.1 Status post cataract extraction and insertion of intraocular lens of left eye (primary encounter diagnosis) Comment: Brimonidine 0.2% controlling Intraocular pressure well. Continue use Brimonidine 0.2% 1 gt left eye twice a day. Corneal edema OS persists reducing acuity. No macular edema. Continue post op medications Pred Forte and Ketorolac both 1 gt left eye three times a day. Scheduled to see Dr. Griffith in 9 days. Instruct patient to immediately report any change in condition outside of expected and discussed symptoms. I have confirmed and edited as necessary the relevant HPI, ophthalmic history, ROS, and the neuro exam findings as obtained by others. I have seen and examined Magali Ramos. I have discussed the case and the management of this patient's care with the Resident/Fellow, if applicable. I also have reviewed and agree with the assessment and plan as stated above and agree with all of its relevant components. [facility] 12-14-2024 History of Present illness Narrative Assessment and Plan Z98.42, Z96.1 Status post cataract extraction and insertion of intraocular lens of left eye (primary encounter diagnosis) Comment: Brimonidine 0.2% controlling Intraocular pressure well. Continue use Brimonidine 0.2% 1 gt left eye twice a day. Corneal edema OS persists reducing acuity. No macular edema. Continue post op medications Pred Forte and Ketorolac both 1 gt left eye three times a day. Scheduled to see Dr. Griffith in 9 days. Instruct patient to immediately report any change in condition outside of expected and discussed symptoms. I have confirmed and edited as necessary the relevant HPI, ophthalmic history, ROS, and the neuro exam findings as obtained by others. I have seen and examined Magali Ramos. I have discussed the case and the management of this patient's care with the Resident/Fellow, if applicable. I also have reviewed and agree with the assessment and plan as stated above and agree with all of its relevant components. documented in this encounter [facility] 12-07-2024 Instructions Steven Lu II, OD - 12/07/2024 9:08 AM EST Assessment and Plan Z98.42, Z96.1 Status post cataract extraction and insertion of intraocular lens of left eye (primary encounter diagnosis) Comment: Cornea clearing nicely. Intraocular pressure remains elevated. Start use of Brimonidine 0.2% 1 gt left eye twice a day. Recheck pressure in 5-7 days. Continue schedule of postoperative medications as directed. Discussed expected improvement in vision as cornea clears. Instruct patient to immediately report any change in condition outside of expected and discussed symptoms. I have confirmed and edited as necessary the relevant HPI, ophthalmic history, ROS, and the neuro exam findings as obtained by others. I have seen and examined Magali Ramos. I have discussed the case and the management of this patient's care with the Resident/Fellow, if applicable. I also have reviewed and agree with the assessment and plan as stated above and agree with all of its relevant components. documented in this encounter [facility] 12-07-2024 Note HNO ID: [id number] Author: STEVEN LU II, OD Service: ? 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 Intraocular pressure remains elevated. Start use of Brimonidine 0.2% 1 gt left eye twice a day. Recheck pressure in 5-7 days. Continue schedule of postoperative medications as directed. Discussed expected improvement in vision as cornea clears. Instruct patient to immediately report any change in condition outside of expected and discussed symptoms. I have confirmed and edited as necessary the relevant HPI, ophthalmic history, ROS, and the neuro exam findings as obtained by others. I have seen and examined Magali Ramos. I have discussed the case and the management of this patient's care with the Resident/Fellow, if applicable. I also have reviewed and agree with the assessment and plan as stated above and agree with all of its relevant components. [facility] 12-07-2024 History of Present illness Narrative Assessment and Plan Z98.42, Z96.1 Status post cataract extraction and insertion of intraocular lens of left eye (primary encounter diagnosis) Comment: Cornea clearing nicely. Intraocular pressure remains elevated. Start use of Brimonidine 0.2% 1 gt left eye twice a day. Recheck pressure in 5-7 days. Continue schedule of postoperative medications as directed. Discussed expected improvement in vision as cornea clears. Instruct patient to immediately report any change in condition outside of expected and discussed symptoms. I have confirmed and edited as necessary the relevant HPI, ophthalmic history, ROS, and the neuro exam findings as obtained by others. I have seen and examined Magali Ramos. I have discussed the case and the management of this patient's care with the Resident/Fellow, if applicable. I also have reviewed and agree with the assessment and plan as stated above and agree with all of its relevant components. documented in this encounter [facility] 12-02-2024 Instructions Brian Griffith MD - 12/02/2024 11:24 AM EST Current Ophthalmic Meds fluorometholone (FML LIQUID FILM) 0.1 % ophthalmic suspension Use 1 Drop in the right eye three times a day. Current Ophthalmic Meds prednisoLONE acetate (PRED FORTE) 1 % ophthalmic suspension Use 1 Drop in the left eye four times daily. keTORolac (ACULAR) 0.5 % ophthalmic solution Use 1 Drop in the left eye four times daily. Continue: Systane Complete solution instill 1 drop 3 times daily Both Eyes. Lourdes 128 5% ointment at bedtime Left Eye. If you have any questions please contact our office at [phone]. After office hours or on the weekend, please call Dr. Griffith on his cell phone at [phone]. documented in this encounter [facility] 12-02-2024 Note HNO ID: [id number] Author: BRIAN GRIFFITH MD Service: ? Author Type: Physician Type: Progress Notes Filed: 12/02/2024 11:25 Note Text: ASSESSMENT/PLAN: 1. Combined forms of age-related cataract of right eye - ICD9: 366.19, ICD10: H25.811 (primary diagnosis) Plan Cataract Surgery with Monofocal Intraocular Lens Implant Right Eye when Left Eye is stable. Current Ophthalmic Meds fluorometholone (FML LIQUID FILM) 0.1 % ophthalmic suspension Use 1 Drop in the right eye three times a day. Continue: Systane Complete solution instill 1 drop 3 times daily Both Eyes. 2. Status post cataract extraction and insertion of intraocular lens of left eye - ICD9: V45.61, V43.1, ICD10: Z98.42, Z96.1 Current Ophthalmic Meds prednisoLONE acetate (PRED FORTE) 1 % ophthalmic suspension Use 1 Drop in the left eye four times daily. keTORolac (ACULAR) 0.5 % ophthalmic solution Use 1 Drop in the left eye four times daily. Continue: Systane Complete solution instill 1 drop 3 times daily Both Eyes. Lourdes 128 5% ointment at bedtime Left Eye. I have confirmed and edited as necessary the relevant HPI, ophthalmic history, ROS, and the neuro exam findings as obtained by others. I have seen and examined Magali Ramos. I have discussed the case and the management of this patient's care with the Resident/Fellow, if applicable. I also have reviewed and agree with the assessment and plan as stated above and agree with all of its relevant components. [facility] 12-02-2024 History of Present illness Narrative ASSESSMENT/PLAN: 1. Combined forms of age-related cataract of right eye - ICD9: 366.19, ICD10: H25.811 (primary diagnosis) Plan Cataract Surgery with Monofocal Intraocular Lens Implant Right Eye when Left Eye is stable. Current Ophthalmic Meds fluorometholone (FML LIQUID FILM) 0.1 % ophthalmic suspension Use 1 Drop in the right eye three times a day. Continue: Systane Complete solution instill 1 drop 3 times daily Both Eyes. 2. Status post cataract extraction and insertion of intraocular lens of left eye - ICD9: V45.61, V43.1, ICD10: Z98.42, Z96.1 Current Ophthalmic Meds prednisoLONE acetate (PRED FORTE) 1 % ophthalmic suspension Use 1 Drop in the left eye four times daily. keTORolac (ACULAR) 0.5 % ophthalmic solution Use 1 Drop in the left eye four times daily. Continue: Systane Complete solution instill 1 drop 3 times daily Both Eyes. Lourdes 128 5% ointment at bedtime Left Eye. I have confirmed and edited as necessary the relevant HPI, ophthalmic history, ROS, and the neuro exam findings as obtained by others. I have seen and examined Magali Ramos. I have discussed the case and the management of this patient's care with the Resident/Fellow, if applicable. I also have reviewed and agree with the assessment and plan as stated above and agree with all of its relevant components. documented in this encounter [facility] 11-30-2024 Instructions Brian Griffith MD - 11/30/2024 8:16 AM EST Plan Cataract Surgery with Monofocal Intraocular Lens Implant Right Eye when left Eye is stable. Current Ophthalmic Meds fluorometholone (FML LIQUID FILM) 0.1 % ophthalmic suspension Use 1 Drop in the right eye three times a day. Current Ophthalmic Meds prednisoLONE acetate (PRED FORTE) 1 % ophthalmic suspension Use 1 Drop in the left eye four times daily. keTORolac (ACULAR) 0.5 % ophthalmic solution Use 1 Drop in the left eye four times daily. Continue: Systane Complete solution instill 1 drop 3 times daily Both Eyes. Start: Lourdes 128 5% ointment at bedtime Left Eye. If you have any questions please contact our office at [phone]. After office hours or on the weekend, please call Dr. Griffith on his cell phone at [phone]. documented in this encounter [facility] 11-30-2024 Note HNO ID: [id number] Author: BRIAN GRIFFITH MD Service: ? Author Type: Physician Type: Progress Notes Filed: 11/30/2024 09:24 Note Text: ASSESSMENT/PLAN: 1. Combined forms of age-related cataract of right eye - ICD9: 366.19, ICD10: H25.811 (primary diagnosis) Plan Cataract Surgery with Monofocal Intraocular Lens Implant Right Eye when Left Eye is stable. Current Ophthalmic Meds fluorometholone (FML LIQUID FILM) 0.1 % ophthalmic suspension Use 1 Drop in the right eye three times a day. Continue: Systane Complete solution instill 1 drop 3 times daily Both Eyes. 2. Status post cataract extraction and insertion of intraocular lens of left eye - ICD9: V45.61, V43.1, ICD10: Z98.42, Z96.1 Administered by moth to patient Diamox 500 mg at 8:33 AM. Current Ophthalmic Meds prednisoLONE acetate (PRED FORTE) 1 % ophthalmic suspension Use 1 Drop in the left eye four times daily. keTORolac (ACULAR) 0.5 % ophthalmic solution Use 1 Drop in the left eye four times daily. Continue: Systane Complete solution instill 1 drop 3 times daily Both Eyes. Start: Lourdes 128 5% ointment at bedtime Left Eye. I have confirmed and edited as necessary the relevant HPI, ophthalmic history, ROS, and the neuro exam findings as obtained by others. I have seen and examined Magali Sabine Ramos. I have discussed the case and the management of this patient's care with the Resident/Fellow, if applicable. I also have reviewed and agree with the assessment and plan as stated above and agree with all of its relevant components. [facility] 11-30-2024 History of Present illness Narrative ASSESSMENT/PLAN: 1. Combined forms of age-related cataract of right eye - ICD9: 366.19, ICD10: H25.811 (primary diagnosis) Plan Cataract Surgery with Monofocal Intraocular Lens Implant Right Eye when Left Eye is stable. Current Ophthalmic Meds fluorometholone (FML LIQUID FILM) 0.1 % ophthalmic suspension Use 1 Drop in the right eye three times a day. Continue: Systane Complete solution instill 1 drop 3 times daily Both Eyes. 2. Status post cataract extraction and insertion of intraocular lens of left eye - ICD9: V45.61, V43.1, ICD10: Z98.42, Z96.1 Administered by moth to patient Diamox 500 mg at 8:33 AM. Current Ophthalmic Meds prednisoLONE acetate (PRED FORTE) 1 % ophthalmic suspension Use 1 Drop in the left eye four times daily. keTORolac (ACULAR) 0.5 % ophthalmic solution Use 1 Drop in the left eye four times daily. Continue: Systane Complete solution instill 1 drop 3 times daily Both Eyes. Start: Lourdes 128 5% ointment at bedtime Left Eye. I have confirmed and edited as necessary the relevant HPI, ophthalmic history, ROS, and the neuro exam findings as obtained by others. I have seen and examined Magali Ramos. I have discussed the case and the management of this patient's care with the Resident/Fellow, if applicable. I also have reviewed and agree with the assessment and plan as stated above and agree with all of its relevant components. documented in this encounter [facility] 11-29-2024 Hospital Discharge instructions Brian Griffith MD - 11/29/2024 1:47 PM EST Instructions After Cataract Surgery It is very important to follow these instructions after your eye surgery to ensure its success. A responsible adult must drive you home after the surgery. You might feel well, but the medicines given during the surgery might affect you for several hours. Do not drive or operate machinery for the rest of the day. We recommend that a responsible adult stay with you for 24 hours after surgery. Eye Protection - You may wear your glasses during the day. Before you go to sleep, put on the protective shield without a cotton patch. Activity - You may use your eyes for activities such as reading, writing, and watching television as much as you choose. Your vision might be blurred, but you will not harm your operated eye by trying to use it. Ask about driving when you see your doctor at your follow up appointment. Avoid the following activities for 2 weeks after surgery: Heavy lifting (over 20 pounds) Swimming Strenuous exercise or activity Working in [place] places Activities that might injure your eye Daily hygiene - You may shower and wash your hair and face as usual, but DO NOT rub your operated eye. Try to avoid getting soap or water in your eyes. Pain management - Pain after eye surgery is not common. Most people do not need oral pain medicine. If you do have some eye pain or a headache, you may take acetaminophen unless there is some reason you cannot take this medication (i.e., liver disease, allergies, etc.). Follow the instructions on the bottle. Diet - If you feel sick to your stomach, drink only clear liquids. Clear liquids include clear broth, tea, strained fruit juices, strained vegetable soup, black coffee, plain gelatin, and jada georges. Eat a regular meal when you do not feel sick. Do not drink alcoholic beverages for 24 hours after the surgery. Eye medications - If you have been prescribed or given eye drops and/or ointment, please bring them, this handout and any previous eye drops/ointments you have to your follow up appointment. Your eye medications will be explained during your follow up appointment. How to give yourself eye drops or ointment Wash your hands with soap and warm water. Dry them with a clean towel. If you are putting in your own eye medicine, lie down or use a mirror. Ask someone to check that you are getting the medicine in your eye. Look up to the ceiling with both eyes. Pull the lower lid of your eye down with one hand. Hold the medicine bottle or tube in your other hand. (if necessary, rest part of your hand on your forehead to keep it steady). Place a drop of medicine or a small amount of ointment inside your lower lid. The tip of the medicine bottle or tube should not touch your eye. Close your eyes for a minute after putting in the medicine. If you are prescribed both eye drops and eye ointment, use the eye drops first. If you have more than one eye medicine to put in your eyes, wait about 5 minutes after the first medicine before putting the second medicine. Call your surgeon immediately if you experience: Increased or severe eye pain Bleeding from the eye Sudden decrease in vision or decreased ability to see light Discharge from the eye Any questions or problems Call your doctor immediately or go to the nearest emergency room if you experience: Nausea or vomiting that won't go away Chest pain Leg cramps A temperature above 101 F or 38.3 C Trouble breathing Contact If you have any questions please contact our office at [phone]. After office hours or on the weekend, please call Dr. Griffith on his cell phone at [phone]. documented in this encounter [facility] 11-29-2024 Surgery Surgical operation note [place] [address] [facility] OPERATIVE REPORT LOG ID: [id number] Surgery/Procedure Date: 11/29/2024 Incision/Procedure Start Time: 1:23 PM Incision Close/Procedure End Time: 1:39 PM NAME: Magali Ramos [facility] #: [id number] Surgeon(s)/Proceduralist(s) and Retail Account Manager(s): Surgeons and Role: * Brian Griffith MD - Primary ANESTHESIA: Monitored Anesthesia Care OPERATIONS: Phacoemulsification with Posterior Chamber Lens Implant Left eye. 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 OPERATIVE INDICATIONS: Patient positive for blurred vision, difficulty reading, driving, watching TV and complaints of glare. OPERATIVE PROCEDURE: The patient was brought to the operating room and given combined anesthesia with IV sedation. The operative eye was prepped and draped in the usual sterile manner. Betadine ophthalmic solution was instilled into the conjunctival sac and left in place for 3 minutes. The eyelids were retracted with Ghada locking wire speculum. Conjunctival sac was irrigated with the help of balanced salt solution. A paracentesis incision was made approximately 30 away from the planned surgical incision site with the help of MVR blade. 1% lidocaine MPF was injected through the paracentesis incision. A near limbal clear corneal incision was fashioned in the temporal quadrant just outside the vascular arcade with the help of slit blade and Viscoat was instilled into the anterior chamber to firm the eye. Under Viscoat cover, a circular continuous tear capsulorrhexis was made by using coaxial capsulorrhexis process. Hydrodissection and hydrodelineation of the cataract was then done with balanced salt solution. The phacoemulsifier was tested and found to be operating properly. The cataractous lens nucleus was then extracted using phacoemulsification in the capsular bag. Residual cortex was then aspirated by using soft-tipped irrigation aspiration cannula. The posterior capsule was then polished with the help of irrigation aspiration tip. The anterior chamber and the capsular bag were filled with viscoelastic. The intraocular lens was taken from its sterile wrapping, inspected under the surgical microscope and found to be in good condition. The pre-loaded IOL was injected into the capsular bag under the viscoelastic. The lens implant was then rotated until the optic was well centered. The residual viscoelastic was then removed from the capsular bag and the anterior chamber, using the soft-tipped irrigation aspiration cannula. The anterior chamber was formed with BSS and Vigamox was injected into the capsul bag and behind the iris through the side port incision. At the end of the procedure, the edges of the incision were hydrated by using balanced salt solution. Anterior chamber was inflated with the help of BSS to moderate tension. The surgical incisions were then inspected and found to be water-tight. The eyelid speculum was removed. Betadine ophthalmic solution was instilled into the conjunctival sac. The patient tolerated the procedure well and left the operating room in good condition. I have reviewed the images and report on 11/29/2024 from the Ophthalmic Biometry to determine the Intraocular lens Power Calculation for the IOL lens implant. I have interpreted and agree with the calculation of the IOL as listed below. Implant Name Type Inv. Item Serial No. Hand Gluer And Slicer Lot No. LRB No. Used Action Model No. CCA0T0.170 [facility] - [id number] Intraocular Lens CCA0T0.170 [facility] [id number] [employer] Left 1 Implanted CCA0T0.170 Estimated Blood Loss: None Specimens: None Drains: None Complications: None Participation: I/primary surgeon/proceduralist performed the entire procedure. Brian Griffith M..D. 11/29/2024 , 1:49 PM [facility] 11-29-2024 Surgical operation note [place] [address] [facility] OPERATIVE REPORT LOG ID: [id number] Surgery/Procedure Date: 11/29/2024 Incision/Procedure Start Time: 1:23 PM Incision Close/Procedure End Time: 1:39 PM NAME: Magali Regalado [facility] #: [id number] Surgeon(s)/Proceduralist(s) and Retail Account Manager(s): Surgeons and Role: * Brian Griffith MD - Primary ANESTHESIA: Monitored Anesthesia Care OPERATIONS: Phacoemulsification with Posterior Chamber Lens Implant Left eye. 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 OPERATIVE INDICATIONS: Patient positive for blurred vision, difficulty reading, driving, watching TV and complaints of glare. OPERATIVE PROCEDURE: The patient was brought to the operating room and given combined anesthesia with IV sedation. The operative eye was prepped and draped in the usual sterile manner. Betadine ophthalmic solution was instilled into the conjunctival sac and left in place for 3 minutes. The eyelids were retracted with Ghada locking wire speculum. Conjunctival sac was irrigated with the help of balanced salt solution. A paracentesis incision was made approximately 30 away from the planned surgical incision site with the help of MVR blade. 1% lidocaine MPF was injected through the paracentesis incision. A near limbal clear corneal incision was fashioned in the temporal quadrant just outside the vascular arcade with the help of slit blade and Viscoat was instilled into the anterior chamber to firm the eye. Under Viscoat cover, a circular continuous tear capsulorrhexis was made by using coaxial capsulorrhexis process. Hydrodissection and hydrodelineation of the cataract was then done with balanced salt solution. The phacoemulsifier was tested and found to be operating properly. The cataractous lens nucleus was then extracted using phacoemulsification in the capsular bag. Residual cortex was then aspirated by using soft-tipped irrigation aspiration cannula. The posterior capsule was then polished with the help of irrigation aspiration tip. The anterior chamber and the capsular bag were filled with viscoelastic. The intraocular lens was taken from its sterile wrapping, inspected under the surgical microscope and found to be in good condition. The pre-loaded IOL was injected into the capsular bag under the viscoelastic. The lens implant was then rotated until the optic was well centered. The residual viscoelastic was then removed from the capsular bag and the anterior chamber, using the soft-tipped irrigation aspiration cannula. The anterior chamber was formed with BSS and Vigamox was injected into the capsul bag and behind the iris through the side port incision. At the end of the procedure, the edges of the incision were hydrated by using balanced salt solution. Anterior chamber was inflated with the help of BSS to moderate tension. The surgical incisions were then inspected and found to be water-tight. The eyelid speculum was removed. Betadine ophthalmic solution was instilled into the conjunctival sac. The patient tolerated the procedure well and left the operating room in good condition. I have reviewed the images and report on 11/29/2024 from the Ophthalmic Biometry to determine the Intraocular lens Power Calculation for the IOL lens implant. I have interpreted and agree with the calculation of the IOL as listed below. Implant Name Type Inv. Item Serial No. Hand Gluer And Slicer Lot No. LRB No. Used Action Model No. CCA0T0.170 [facility] - [id number] Intraocular Lens CCA0T0.170 [facility] [employer] [id number] [employer] Left 1 Implanted CCA0T0.170 Estimated Blood Loss: None Specimens: None Drains: None Complications: None Participation: I/primary surgeon/proceduralist performed the entire procedure. Brian Griffith M..D. 11/29/2024 , 1:49 PM documented in this encounter [facility] 11-29-2024 Attending History and physical note UPDATED HISTORY AND PHYSICAL EXAMINATION SERVICE DATE: 11/29/2024 SERVICE TIME: 12:21 PM PHYSICAL EXAM MUST BE COMPLETED ON ADMISSION The History and Physical (completed in the past 30 days) has been reviewed and the patient has been examined. The contents accurately reflect the patient's condition with the following additions or revisions since the H&P was completed. Examination indicates no changes. This H&P can be found in the Electronic Medical Record dated 11-18-24. 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 No pertinent surgical history. FAMILY HISTORY Problem Relation Age of Onset Heart Mother Diabetes Mother No Ocular Disease No Family History SOCIAL HISTORY: Social History Tobacco Use Smoking status: Never Smokeless tobacco: Never Vaping Use Vaping status: Never Used Substance Use Topics Alcohol use: No Drug use: No MEDICATIONS: Prior to Admission medications as of 11/18/24 5572 Medication Sig Last Dose Taking levothyroxine (SYNTHROID) 25 mcg tablet Take 1 tablet (25 mcg) by mouth early in the morning.. Take on an empty stomach at the same time each day, either 30 to 60 minutes prior to breakfast Yes rosuvastatin (CRESTOR) 5 mg tablet Take 5 mg by mouth once daily. Yes fluorometholone (FML LIQUID FILM) 0.1 % ophthalmic suspension Use 1 Drop in both eyes three times a day. Yes cholecalciferol (VITAMIN D3) 1,000 unit tab tablet Take by mouth. Yes XARELTO 20 mg tablet Yes amiodarone (PACERONE) 200 mg tablet Yes losartan (COZAAR) 25 mg tablet Yes prednisoLONE acetate (PRED FORTE) 1 % ophthalmic suspension Use 1 Drop in the left eye four times daily. keTORolac (ACULAR) 0.5 % ophthalmic solution Use 1 Drop in the left eye four times daily. No medication comments found. CURRENT ALLERGIES: ALLERGIES No Known Allergies REVIEW OF SYSTEMS: PAIN ASSESSMENT: General: No weight loss, malaise or fevers. Neuro: No Hx of stroke or seizures Respiratory: No history of current cough or dyspnea, or pneumonia in the past 6 weeks. No history of respiratory/pulmonary symptoms or problems Cardiovascular: Positive for: Afib/Aflutter GI: No history of GI symptoms or problems. No history of esophageal varices, recent ascites, or ETOH greater than 2 drinks per day. : No history of UTI in past 6 weeks. No history of renal failure. Not currently on or requiring dialysis. No history of symptoms or problems. PULP GRINDER FEEDER: N/A : N/A Endocrine: No history of diabetes. Has not taken steroids within the past 30 days. No history of endocrinological symptoms or problems. Hematology: No history of bleeding or clotting disorder. Pt is not taking anti-coagulation or platelet medications. No history of hematological symptoms or problems. Oncology: No history of CA metastasis, chemo within 30 days, or radiotherapy within 90 days. Has not lost 10% of body wt in 6 months. No history of oncological symptoms or problems. Psych: No history of psychiatric symptoms or problems. Musculoskeletal: Negative for joint pain or swelling, back pain or muscle pain. Skin: Negative for lesions, rash and itching. PHYSICAL EXAM: VITALS: BP 121/81 Pulse 78 General: Alert and oriented Skin: Normal color, no rash, no lesions. HEENT: EOM, pupils equal, round and reactive. Cardiovascular: Normal S1 & S2, no rubs, murmurs or gallops. No JVD. Pulse regular. Lungs: Normal breath sounds, no wheezes or crackles. Abdomen: Soft, non-tender, no rigidity. Extremities: No deformity, no edema or tenderness, no joint swelling or clubbing. Neurological: Normal cognition and motor skills. Pulses: Carotid and radial pulses normal +2. Diagnostic tests reviewed for today's visit: Following tests done at outside facility: records reviewed, EKG . ASSESSMENT Medication and Non-Pharmacologic VTE Prophylaxis/Anticoagulants VTE Prophylaxis: VTE prophylaxis appropriate Impression: There is no known pertinent medical condition which may affect austyn-operative course Clinical Risk Factors for Possible Cardiac Complications: None Patient is scheduled for a low-risk procedure. FUNCTIONAL STATUS: Walk indoors, such as around the house (1.75 METs) Do light work around the house, such as dusting or washing dishes (2.70 METs) Take care of self, that is eating, dressing, bathing, using the toilet (2.75 METs) Functional Class (NYHA): N/A [facility]: Not obtained PLAN CONSULTS: Patient does not require consults for optimization at this time. The Following Tests/Procedures Have Been Initiated: None Instructions Given to Patient: Patient given verbal and written preop instructions and voices comprehension and compliance. SIGNATURE: Brian Griffith MD PATIENT NAME: Magali Ramos DATE: November 18, 2024 TIME: 10:04 AM PAGER/CONTACT #: [facility] 11-29-2024 History and physical note UPDATED HISTORY AND PHYSICAL EXAMINATION SERVICE DATE: 11/29/2024 SERVICE TIME: 12:21 PM PHYSICAL EXAM MUST BE COMPLETED ON ADMISSION The History and Physical (completed in the past 30 days) has been reviewed and the patient has been examined. The contents accurately reflect the patient's condition with the following additions or revisions since the H&P was completed. Examination indicates no changes. This H&P can be found in the Electronic Medical Record dated 11-18-24. 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 No pertinent surgical history. FAMILY HISTORY Problem Relation Age of Onset Heart Mother Diabetes Mother No Ocular Disease No Family History SOCIAL HISTORY: Social History Tobacco Use Smoking status: Never Smokeless tobacco: Never Vaping Use Vaping status: Never Used Substance Use Topics Alcohol use: No Drug use: No MEDICATIONS: Prior to Admission medications as of 11/18/24 0959 Medication Sig Last Dose Taking levothyroxine (SYNTHROID) 25 mcg tablet Take 1 tablet (25 mcg) by mouth early in the morning.. Take on an empty stomach at the same time each day, either 30 to 60 minutes prior to breakfast Yes rosuvastatin (CRESTOR) 5 mg tablet Take 5 mg by mouth once daily. Yes fluorometholone (FML LIQUID FILM) 0.1 % ophthalmic suspension Use 1 Drop in both eyes three times a day. Yes cholecalciferol (VITAMIN D3) 1,000 unit tab tablet Take by mouth. Yes XARELTO 20 mg tablet Yes amiodarone (PACERONE) 200 mg tablet Yes losartan (COZAAR) 25 mg tablet Yes prednisoLONE acetate (PRED FORTE) 1 % ophthalmic suspension Use 1 Drop in the left eye four times daily. keTORolac (ACULAR) 0.5 % ophthalmic solution Use 1 Drop in the left eye four times daily. No medication comments found. CURRENT ALLERGIES: ALLERGIES No Known Allergies REVIEW OF SYSTEMS: PAIN ASSESSMENT: General: No weight loss, malaise or fevers. Neuro: No Hx of stroke or seizures Respiratory: No history of current cough or dyspnea, or pneumonia in the past 6 weeks. No history of respiratory/pulmonary symptoms or problems Cardiovascular: Positive for: Afib/Aflutter GI: No history of GI symptoms or problems. No history of esophageal varices, recent ascites, or ETOH greater than 2 drinks per day. : No history of UTI in past 6 weeks. No history of renal failure. Not currently on or requiring dialysis. No history of symptoms or problems. PULP GRINDER FEEDER: N/A : N/A Endocrine: No history of diabetes. Has not taken steroids within the past 30 days. No history of endocrinological symptoms or problems. Hematology: No history of bleeding or clotting disorder. Pt is not taking anti-coagulation or platelet medications. No history of hematological symptoms or problems. Oncology: No history of CA metastasis, chemo within 30 days, or radiotherapy within 90 days. Has not lost 10% of body wt in 6 months. No history of oncological symptoms or problems. Psych: No history of psychiatric symptoms or problems. Musculoskeletal: Negative for joint pain or swelling, back pain or muscle pain. Skin: Negative for lesions, rash and itching. PHYSICAL EXAM: VITALS: BP 121/81 Pulse 78 General: Alert and oriented Skin: Normal color, no rash, no lesions. HEENT: EOM, pupils equal, round and reactive. Cardiovascular: Normal S1 & S2, no rubs, murmurs or gallops. No JVD. Pulse regular. Lungs: Normal breath sounds, no wheezes or crackles. Abdomen: Soft, non-tender, no rigidity. Extremities: No deformity, no edema or tenderness, no joint swelling or clubbing. Neurological: Normal cognition and motor skills. Pulses: Carotid and radial pulses normal +2. Diagnostic tests reviewed for today's visit: Following tests done at outside facility: records reviewed, EKG . ASSESSMENT Medication and Non-Pharmacologic VTE Prophylaxis/Anticoagulants VTE Prophylaxis: VTE prophylaxis appropriate Impression: There is no known pertinent medical condition which may affect austyn-operative course Clinical Risk Factors for Possible Cardiac Complications: None Patient is scheduled for a low-risk procedure. FUNCTIONAL STATUS: Walk indoors, such as around the house (1.75 METs) Do light work around the house, such as dusting or washing dishes (2.70 METs) Take care of self, that is eating, dressing, bathing, using the toilet (2.75 METs) Functional Class (NYHA): N/A [facility]: Not obtained PLAN CONSULTS: Patient does not require consults for optimization at this time. The Following Tests/Procedures Have Been Initiated: None Instructions Given to Patient: Patient given verbal and written preop instructions and voices comprehension and compliance. 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 No pertinent surgical history. FAMILY HISTORY Problem Relation Age of Onset Heart Mother Diabetes Mother No Ocular Disease No Family History SOCIAL HISTORY: Social History Tobacco Use Smoking status: Never Smokeless tobacco: Never Vaping Use Vaping status: Never Used Substance Use Topics Alcohol use: No Drug use: No MEDICATIONS: Prior to Admission medications as of 11/18/24 0959 Medication Sig Last Dose Taking levothyroxine (SYNTHROID) 25 mcg tablet Take 1 tablet (25 mcg) by mouth early in the morning.. Take on an empty stomach at the same time each day, either 30 to 60 minutes prior to breakfast Yes rosuvastatin (CRESTOR) 5 mg tablet Take 5 mg by mouth once daily. Yes fluorometholone (FML LIQUID FILM) 0.1 % ophthalmic suspension Use 1 Drop in both eyes three times a day. Yes cholecalciferol (VITAMIN D3) 1,000 unit tab tablet Take by mouth. Yes XARELTO 20 mg tablet Yes amiodarone (PACERONE) 200 mg tablet Yes losartan (COZAAR) 25 mg tablet Yes prednisoLONE acetate (PRED FORTE) 1 % ophthalmic suspension Use 1 Drop in the left eye four times daily. keTORolac (ACULAR) 0.5 % ophthalmic solution Use 1 Drop in the left eye four times daily. No medication comments found. CURRENT ALLERGIES: ALLERGIES No Known Allergies REVIEW OF SYSTEMS: PAIN ASSESSMENT: General: No weight loss, malaise or fevers. Neuro: No Hx of stroke or seizures Respiratory: No history of current cough or dyspnea, or pneumonia in the past 6 weeks. No history of respiratory/pulmonary symptoms or problems Cardiovascular: Positive for: Afib/Aflutter GI: No history of GI symptoms or problems. No history of esophageal varices, recent ascites, or ETOH greater than 2 drinks per day. : No history of UTI in past 6 weeks. No history of renal failure. Not currently on or requiring dialysis. No history of symptoms or problems. PULP GRINDER FEEDER: N/A : N/A Endocrine: No history of diabetes. Has not taken steroids within the past 30 days. No history of endocrinological symptoms or problems. Hematology: No history of bleeding or clotting disorder. Pt is not taking anti-coagulation or platelet medications. No history of hematological symptoms or problems. Oncology: No history of CA metastasis, chemo within 30 days, or radiotherapy within 90 days. Has not lost 10% of body wt in 6 months. No history of oncological symptoms or problems. Psych: No history of psychiatric symptoms or problems. Musculoskeletal: Negative for joint pain or swelling, back pain or muscle pain. Skin: Negative for lesions, rash and itching. PHYSICAL EXAM: VITALS: BP 121/81 Pulse 78 General: Alert and oriented Skin: Normal color, no rash, no lesions. HEENT: EOM, pupils equal, round and reactive. Cardiovascular: Normal S1 & S2, no rubs, murmurs or gallops. No JVD. Pulse regular. Lungs: Normal breath sounds, no wheezes or crackles. Abdomen: Soft, non-tender, no rigidity. Extremities: No deformity, no edema or tenderness, no joint swelling or clubbing. Neurological: Normal cognition and motor skills. Pulses: Carotid and radial pulses normal +2. Diagnostic tests reviewed for today's visit: Following tests done at outside facility: records reviewed, EKG . ASSESSMENT Medication and Non-Pharmacologic VTE Prophylaxis/Anticoagulants VTE Prophylaxis: VTE prophylaxis appropriate Impression: There is no known pertinent medical condition which may affect austyn-operative course Clinical Risk Factors for Possible Cardiac Complications: None Patient is scheduled for a low-risk procedure. FUNCTIONAL STATUS: Walk indoors, such as around the house (1.75 METs) Do light work around the house, such as dusting or washing dishes (2.70 METs) Take care of self, that is eating, dressing, bathing, using the toilet (2.75 METs) Functional Class (NYHA): N/A [facility]: Not obtained PLAN CONSULTS: Patient does not require consults for optimization at this time. The Following Tests/Procedures Have Been Initiated: None Instructions Given to Patient: Patient given verbal and written preop instructions and voices comprehension and compliance. 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 No pertinent surgical history. FAMILY HISTORY Problem Relation Age of Onset Heart Mother Diabetes Mother No Ocular Disease No Family History SOCIAL HISTORY: Social History Tobacco Use Smoking status: Never Smokeless tobacco: Never Vaping Use Vaping status: Never Used Substance Use Topics Alcohol use: No Drug use: No MEDICATIONS: Prior to Admission medications as of 11/18/24 8413 Medication Sig Last Dose Taking levothyroxine (SYNTHROID) 25 mcg tablet Take 1 tablet (25 mcg) by mouth early in the morning.. Take on an empty stomach at the same time each day, either 30 to 60 minutes prior to breakfast Yes rosuvastatin (CRESTOR) 5 mg tablet Take 5 mg by mouth once daily. Yes fluorometholone (FML LIQUID FILM) 0.1 % ophthalmic suspension Use 1 Drop in both eyes three times a day. Yes cholecalciferol (VITAMIN D3) 1,000 unit tab tablet Take by mouth. Yes XARELTO 20 mg tablet Yes amiodarone (PACERONE) 200 mg tablet Yes losartan (COZAAR) 25 mg tablet Yes prednisoLONE acetate (PRED FORTE) 1 % ophthalmic suspension Use 1 Drop in the left eye four times daily. keTORolac (ACULAR) 0.5 % ophthalmic solution Use 1 Drop in the left eye four times daily. No medication comments found. CURRENT ALLERGIES: ALLERGIES No Known Allergies REVIEW OF SYSTEMS: PAIN ASSESSMENT: General: No weight loss, malaise or fevers. Neuro: No Hx of stroke or seizures Respiratory: No history of current cough or dyspnea, or pneumonia in the past 6 weeks. No history of respiratory/pulmonary symptoms or problems Cardiovascular: Positive for: Afib/Aflutter GI: No history of GI symptoms or problems. No history of esophageal varices, recent ascites, or ETOH greater than 2 drinks per day. : No history of UTI in past 6 weeks. No history of renal failure. Not currently on or requiring dialysis. No history of symptoms or problems. PULP GRINDER FEEDER: N/A : N/A Endocrine: No history of diabetes. Has not taken steroids within the past 30 days. No history of endocrinological symptoms or problems. Hematology: No history of bleeding or clotting disorder. Pt is not taking anti-coagulation or platelet medications. No history of hematological symptoms or problems. Oncology: No history of CA metastasis, chemo within 30 days, or radiotherapy within 90 days. Has not lost 10% of body wt in 6 months. No history of oncological symptoms or problems. Psych: No history of psychiatric symptoms or problems. Musculoskeletal: Negative for joint pain or swelling, back pain or muscle pain. Skin: Negative for lesions, rash and itching. PHYSICAL EXAM: VITALS: BP 121/81 Pulse 78 General: Alert and oriented Skin: Normal color, no rash, no lesions. HEENT: EOM, pupils equal, round and reactive. Cardiovascular: Normal S1 & S2, no rubs, murmurs or gallops. No JVD. Pulse regular. Lungs: Normal breath sounds, no wheezes or crackles. Abdomen: Soft, non-tender, no rigidity. Extremities: No deformity, no edema or tenderness, no joint swelling or clubbing. Neurological: Normal cognition and motor skills. Pulses: Carotid and radial pulses normal +2. Diagnostic tests reviewed for today's visit: Following tests done at outside facility: records reviewed, EKG . ASSESSMENT Medication and Non-Pharmacologic VTE Prophylaxis/Anticoagulants VTE Prophylaxis: VTE prophylaxis appropriate Impression: There is no known pertinent medical condition which may affect austyn-operative course Clinical Risk Factors for Possible Cardiac Complications: None Patient is scheduled for a low-risk procedure. FUNCTIONAL STATUS: Walk indoors, such as around the house (1.75 METs) Do light work around the house, such as dusting or washing dishes (2.70 METs) Take care of self, that is eating, dressing, bathing, using the toilet (2.75 METs) Functional Class (NYHA): N/A [employer]: Not obtained PLAN CONSULTS: Patient does not require consults for optimization at this time. The Following Tests/Procedures Have Been Initiated: None Instructions Given to Patient: Patient given verbal and written preop instructions and voices comprehension and compliance. SIGNATURE: Brian Griffith MD PATIENT NAME: Magali Ramos DATE: November 18, 2024 TIME: 10:04 AM PAGER/CONTACT #: documented in this encounter [facility] 11-18-2024 Instructions Brian Griffith MD - 11/18/2024 10:03 AM EST Patient instructed to bring the following to surgery Current Ophthalmic Meds prednisoLONE acetate (PRED FORTE) 1 % ophthalmic suspension Use 1 Drop in the left eye four times daily. keTORolac (ACULAR) 0.5 % ophthalmic solution Use 1 Drop in the left eye four times daily. Continue Current Ophthalmic Meds fluorometholone (FML LIQUID FILM) 0.1 % ophthalmic suspension Use 1 Drop in both eyes three times a day. Ivizia 1 drop three times a day both eyes If you have any questions please contact our office at [phone]. After office hours or on the weekend, please call Dr. Griffith on his cell phone at [phone]. documented in this encounter [facility] 11-18-2024 Note HNO ID: [id number] Author: BRIAN GRIFFITH MD Service: ? Author Type: Physician Type: Progress Notes Filed: 11/18/2024 10:13 Note Text: ASSESSMENT/PLAN: 1. Combined form of age-related cataract, left eye - ICD9: 366.19, ICD10: H25.812 (primary diagnosis) Upon eye examination, patient was found to have a visually significant cataract left eye . Discussed cataract surgery with patient and different intraocular lens implant options with patient: basic monofocal intraocular lens implant, Toric intraocular lens implant, and presbyopia correction intraocular lens implant. In my medical opinion, based on medical history and ocular examination, cataract surgery with intraocular lens implant will correct patient's vision and improve quality of patient's daily living activities. Patient wishes to have traditional cataract surgery with basic intraocular lens left eye 11/29/2024. Patient wishes to have cataract surgery with the option stated above. Patient understands that an intraocular lens implant does not necessarily replace the need for glasses. Patient understands that it is impossible for the surgeon to inform him/her of every possible complication that may occur. The surgeon has answered all of the patient's questions. Patient understands that if he/she has a mature or dense cataract, pseudoexfoliation cataract, or history of use of Flomax, he/she may require the use of Maluyugin Ring and/or Vision Blue during surgery. Patient understands the risks, benefits, and alternatives to surgery. Patient instructed to bring the following to surgery Current Ophthalmic Meds prednisoLONE acetate (PRED FORTE) 1 % ophthalmic suspension Use 1 Drop in the left eye four times daily. keTORolac (ACULAR) 0.5 % ophthalmic solution Use 1 Drop in the left eye four times daily. Cataract Presurgical Documentation Cataract: Left eye (OS) Current Visual Acuity Right Eye Distance CC 20/40 Left Eye Distance CC 20/60 Visual Function: Magali Ramos states that the decline in vision from the cataract impedes his abilities as listed in the HPI, as well as other activities of daily living. Magali Ramos has confirmed that he is no longer able to function adequately on a day-to-day basis because of his current visual condition. Further, it is my medical opinion that the cataract is the primary cause, or at least a significantly contributory cause of his visual dysfunction. With uncomplicated cataract surgery and lens implantation, it is my expectation that his visual function and quality of life will improve, significantly. The risks, benefits, alternatives, personnel and complications of cataract surgery with lens implantation were discussed with Magali Ramos in detail. he appeared to understand and asked that I proceed with plans for surgery. PHYSICAL EXAM: Vital Signs: Blood pressure 121/81, pulse 78. Respiratory: Normal breath sounds, no wheezing. CARD: Normal heart sounds 1 AND 2, normal sinus rhythm. 2. 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 Atrial fibrillation, unspecified type (HCC) - ICD9: 427.31, ICD10: I48.91 - Continue care with Cardiology - Patient cleared by cardiology to proceed with cataract surgery 5. Hypothyroidism, unspecified type - ICD9: 244.9, ICD10: E03.9 - Continue care with primary care physician I have confirmed and edited as necessary the relevant HPI, ophthalmic history, ROS, and the neuro exam findings as obtained by others. I have seen and examined Magali Ramos. I have discussed the case and the management of this patient's care with the Resident/Fellow, if applicable. I also have reviewed and agree with the assessment and plan as stated above and agree with all of its relevant components. [facility] 11-18-2024 Note Date of Procedure 11/18/2024. Notes Measurements only - see Procedure Record under Scanned Documents for signed results. [facility] 11-18-2024 History of Present illness Narrative ASSESSMENT/PLAN: 1. Combined form of age-related cataract, left eye - ICD9: 366.19, ICD10: H25.812 (primary diagnosis) Upon eye examination, patient was found to have a visually significant cataract left eye . Discussed cataract surgery with patient and different intraocular lens implant options with patient: basic monofocal intraocular lens implant, Toric intraocular lens implant, and presbyopia correction intraocular lens implant. In my medical opinion, based on medical history and ocular examination, cataract surgery with intraocular lens implant will correct patient's vision and improve quality of patient's daily living activities. Patient wishes to have traditional cataract surgery with basic intraocular lens left eye 11/29/2024. Patient wishes to have cataract surgery with the option stated above. Patient understands that an intraocular lens implant does not necessarily replace the need for glasses. Patient understands that it is impossible for the surgeon to inform him/her of every possible complication that may occur. The surgeon has answered all of the patient's questions. Patient understands that if he/she has a mature or dense cataract, pseudoexfoliation cataract, or history of use of Flomax, he/she may require the use of Maluyugin Ring and/or Vision Blue during surgery. Patient understands the risks, benefits, and alternatives to surgery. Patient instructed to bring the following to surgery Current Ophthalmic Meds prednisoLONE acetate (PRED FORTE) 1 % ophthalmic suspension Use 1 Drop in the left eye four times daily. keTORolac (ACULAR) 0.5 % ophthalmic solution Use 1 Drop in the left eye four times daily. Cataract Presurgical Documentation Cataract: Left eye (OS) Current Visual Acuity Right Eye Distance CC 20/40 Left Eye Distance CC 20/60 Visual Function: Magali Sabine Ramos states that the decline in vision from the cataract impedes his abilities as listed in the HPI, as well as other activities of daily living. Magali Ramos has confirmed that he is no longer able to function adequately on a day-to-day basis because of his current visual condition. Further, it is my medical opinion that the cataract is the primary cause, or at least a significantly contributory cause of his visual dysfunction. With uncomplicated cataract surgery and lens implantation, it is my expectation that his visual function and quality of life will improve, significantly. The risks, benefits, alternatives, personnel and complications of cataract surgery with lens implantation were discussed with Magali Ramos in detail. he appeared to understand and asked that I proceed with plans for surgery. PHYSICAL EXAM: Vital Signs: Blood pressure 121/81, pulse 78. Respiratory: Normal breath sounds, no wheezing. CARD: Normal heart sounds 1 & 2, normal sinus rhythm. 2. 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 Atrial fibrillation, unspecified type (HCC) - ICD9: 427.31, ICD10: I48.91 - Continue care with Cardiology - Patient cleared by cardiology to proceed with cataract surgery 5. Hypothyroidism, unspecified type - ICD9: 244.9, ICD10: E03.9 - Continue care with primary care physician I have confirmed and edited as necessary the relevant HPI, ophthalmic history, ROS, and the neuro exam findings as obtained by others. I have seen and examined Magali Ramos. I have discussed the case and the management of this patient's care with the Resident/Fellow, if applicable. I also have reviewed and agree with the assessment and plan as stated above and agree with all of its relevant components. documented in this encounter [facility] 10-28-2024 Note HNO ID: [id number] Author: BRIAN GRIFFITH MD Service: ? Author Type: Physician Type: Progress Notes Filed: 10/28/2024 10:40 Note Text: ASSESSMENT/PLAN: 1. Combined form of age-related cataract, left eye - ICD9: 366.19, ICD10: H25.812 (primary diagnosis) 2. Combined form of age-related cataract, right eye - ICD9: 366.19, ICD10: H25.811 Blood pressure 128/81, pulse 78. Cataract Presurgical Documentation Cataract: Left eye (OS) then Right eye (OD) Current Visual Acuity Right Eye Distance CC 20/40 Left Eye Distance CC 20/60 Visual Function: Magali Ramos states that the decline in vision from the cataract impedes his abilities as listed in the HPI, as well as other activities of daily living. Magali Ramos has confirmed that he is no longer able to function adequately on a day-to-day basis because of his current visual condition. Further, it is my medical opinion that the cataract is the primary cause, or at least a significantly contributory cause of his visual dysfunction. With uncomplicated cataract surgery and lens implantation, it is my expectation that his visual function and quality of life will improve, significantly. The risks, benefits, alternatives, personnel and complications of cataract surgery with lens implantation were discussed with Magali Ramos in detail. he appeared to understand and asked that I proceed with plans for surgery. Upon eye examination, patient was found to have a visually significant cataract left eye . Discussed cataract surgery with patient and different intraocular lens implant options with patient: basic monofocal intraocular lens implant, Toric intraocular lens implant, and presbyopia correction intraocular lens implant. In my medical opinion, based on medical history and ocular examination, cataract surgery with intraocular lens implant will correct patient's vision and improve quality of patient's daily living activities. Patient wishes to have traditional cataract surgery with basic intraocular lens left eye 11/29/2024. Patient wishes to have cataract surgery with the option stated above. Patient understands that an intraocular lens implant does not necessarily replace the need for glasses. Patient understands that it is impossible for the surgeon to inform him/her of every possible complication that may occur. The surgeon has answered all of the patient's questions. Patient understands that if he/she has a mature or dense cataract, pseudoexfoliation cataract, or history of use of Flomax, he/she may require the use of Maluyugin Ring and/or Vision Blue during surgery. Patient understands the risks, benefits, and alternatives to surgery. 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 Atrial fibrillation, unspecified type (HCC) - ICD9: 427.31, ICD10: I48.91 Continue care with Cardiology 5. Hypothyroidism, unspecified type - ICD9: 244.9, ICD10: E03.9 Continue care with primary care physician I have confirmed and edited as necessary the relevant HPI, ophthalmic history, ROS, and the neuro exam findings as obtained by others. I have seen and examined Magali Ramos. I have discussed the case and the management of this patient's care with the Resident/Fellow, if applicable. I also have reviewed and agree with the assessment and plan as stated above and agree with all of its relevant components. Brian Griffith MD [facility] 10-28-2024 History of Present illness Narrative ASSESSMENT/PLAN: 1. Combined form of age-related cataract, left eye - ICD9: 366.19, ICD10: H25.812 (primary diagnosis) 2. Combined form of age-related cataract, right eye - ICD9: 366.19, ICD10: H25.811 Blood pressure 128/81, pulse 78. Cataract Presurgical Documentation Cataract: Left eye (OS) then Right eye (OD) Current Visual Acuity Right Eye Distance CC 20/40 Left Eye Distance CC 20/60 Visual Function: Magali Ramos states that the decline in vision from the cataract impedes his abilities as listed in the HPI, as well as other activities of daily living. Magali Ramos has confirmed that he is no longer able to function adequately on a day-to-day basis because of his current visual condition. Further, it is my medical opinion that the cataract is the primary cause, or at least a significantly contributory cause of his visual dysfunction. With uncomplicated cataract surgery and lens implantation, it is my expectation that his visual function and quality of life will improve, significantly. The risks, benefits, alternatives, personnel and complications of cataract surgery with lens implantation were discussed with Magali Ramos in detail. he appeared to understand and asked that I proceed with plans for surgery. Upon eye examination, patient was found to have a visually significant cataract left eye . Discussed cataract surgery with patient and different intraocular lens implant options with patient: basic monofocal intraocular lens implant, Toric intraocular lens implant, and presbyopia correction intraocular lens implant. In my medical opinion, based on medical history and ocular examination, cataract surgery with intraocular lens implant will correct patient's vision and improve quality of patient's daily living activities. Patient wishes to have traditional cataract surgery with basic intraocular lens left eye 11/29/2024. Patient wishes to have cataract surgery with the option stated above. Patient understands that an intraocular lens implant does not necessarily replace the need for glasses. Patient understands that it is impossible for the surgeon to inform him/her of every possible complication that may occur. The surgeon has answered all of the patient's questions. Patient understands that if he/she has a mature or dense cataract, pseudoexfoliation cataract, or history of use of Flomax, he/she may require the use of Maluyugin Ring and/or Vision Blue during surgery. Patient understands the risks, benefits, and alternatives to surgery. 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 Atrial fibrillation, unspecified type (HCC) - ICD9: 427.31, ICD10: I48.91 Continue care with Cardiology 5. Hypothyroidism, unspecified type - ICD9: 244.9, ICD10: E03.9 Continue care with primary care physician I have confirmed and edited as necessary the relevant HPI, ophthalmic history, ROS, and the neuro exam findings as obtained by others. I have seen and examined Magali Ramos. I have discussed the case and the management of this patient's care with the Resident/Fellow, if applicable. I also have reviewed and agree with the assessment and plan as stated above and agree with all of its relevant components. Brian Griffith MD documented in this encounter [facility] 10-28-2024 Instructions Brian Griffith MD - 10/28/2024 10:31 AM EST Current Ophthalmic Meds fluorometholone (FML LIQUID FILM) 0.1 % ophthalmic suspension Use 1 Drop in both eyes three times a day. Ivizia 1 drop in both eyes three times daily Surgery is scheduled for 11/29/2024 left eye at [facility] If you have any questions please contact our office at [phone]. After office hours or on the weekend, please call Dr. Griffith on his cell phone at [phone]. documented in this encounter [facility] 10-28-2024 Note Date of Procedure 10/28/2024. Teletypesetter Operator Information Cabinetmaker Helper: sergio. ZEISS 10-28-2024 Note Date of Procedure 10/28/2024. Teletypesetter Operator Information Cabinetmaker Helper: sergio. Notes Measurements only - see Procedure Record under Scanned Documents for signed results. LENSTAR Right eye: AL 24.93 ACD 3.01 WTW 11.78 Left eye: AL 24.99 ACD 3.12 WTW 11.79 ZEISS 10-25-2024 Instructions Damian Lu OD - 10/25/2024 11:46 AM EST ASSESSMENT/PLAN: 1. Combined forms of age-related cataract, bilateral - ICD9: 366.19, ICD10: H25.813 (primary diagnosis) Referral for cat eval Left eye Continue to monitor his right eye. 2. Vitreous floaters of both eyes - ICD9: 379.24, ICD10: H43.393 3. Posterior vitreous detachment of right eye - ICD9: 379.21, ICD10: H43.811 Vitreal floaters stable both eyes. Retinas flat and intact with no apparent retinal tear or traction. Discussed symptoms of retinal tear/detachment and if seen patient will return to clinic without delay. Referral to Dr. Griffith for cat eval OS documented in this encounter [facility] 10-25-2024 Note HNO ID: [id number] Author: DAMIAN LU OD Service: ? Author Type: STEAM POWER PLANT OPERATOR Type: Progress Notes Filed: 10/25/2024 11:48 Note Text: ASSESSMENT/PLAN: 1. Combined forms of age-related cataract, bilateral - ICD9: 366.19, ICD10: H25.813 (primary diagnosis) Referral for cat eval Left eye Continue to monitor his right eye. 2. Vitreous floaters of both eyes - ICD9: 379.24, ICD10: H43.393 3. Posterior vitreous detachment of right eye - ICD9: 379.21, ICD10: H43.811 Vitreal floaters stable both eyes. Retinas flat and intact with no apparent retinal tear or traction. Discussed symptoms of retinal tear/detachment and if seen patient will return to clinic without delay. Referral to Dr. Griffith for cat eval OS Damian Lu, OD I have confirmed and edited as necessary the relevant ophthalmic history, ROS, and the neuro exam findings as obtained by others. [facility] 10-25-2024 History of Present illness Narrative ASSESSMENT/PLAN: 1. Combined forms of age-related cataract, bilateral - ICD9: 366.19, ICD10: H25.813 (primary diagnosis) Referral for cat eval Left eye Continue to monitor his right eye. 2. Vitreous floaters of both eyes - ICD9: 379.24, ICD10: H43.393 3. Posterior vitreous detachment of right eye - ICD9: 379.21, ICD10: H43.811 Vitreal floaters stable both eyes. Retinas flat and intact with no apparent retinal tear or traction. Discussed symptoms of retinal tear/detachment and if seen patient will return to clinic without delay. Referral to Dr. Griffith for cat eval OS Damian Lu, OD I have confirmed and edited as necessary the relevant ophthalmic history, ROS, and the neuro exam findings as obtained by others. documented in this encounter [facility] 03-15-2024 Evaluation + Plan note Associated Problem(s): Subclinical hypothyroidism - Chronic problem, unresolved, new to this provider, requires further workup and treatment - Discussed with pt that we should start low dose thyroid replacement due to his age and elevated TSH - levothyroxine 50mcg daily - recheck TSH in 6 weeks [facility] Work Phone: 03-15-2024 Evaluation + Plan note Associated Problem(s): Stage 3b chronic kidney disease (Multi) - Chronic problem, unresolved, new to this provider, requires further workup and treatment - Discussed with pt to avoid NSAIds, improve hydration - continue to monitor [facility] Work Phone: 03-15-2024 Miscellaneous Notes Associated Problem(s): Subclinical hypothyroidism - Chronic problem, unresolved, new to this provider, requires further workup and treatment - Discussed with pt that we should start low dose thyroid replacement due to his age and elevated TSH - levothyroxine 50mcg daily - recheck TSH in 6 weeks Associated Problem(s): Stage 3b chronic kidney disease (Multi) - Chronic problem, unresolved, new to this provider, requires further workup and treatment - Discussed with pt to avoid NSAIds, improve hydration - continue to monitor documented in this encounter [facility] Work Phone: 03-15-2024 History of Present illness Narrative Subjective Reason for Visit: Magali Ramos is an 78 y.o. male here for a Medicare Wellness visit. Past Medical, Surgical, and Family History reviewed and updated in chart. Reviewed all medications by prescribing practitioner or clinical pharmacist (such as prescriptions, OTCs, herbal therapies and supplements) and documented in the medical record. I talked with Niraj and his and he stated that he would not want to be resuscitated. He is okay with a temporary breathing tube but would not want a permanent trach/peg. He would not want artificial hydration/nutrition if in a permanent vegetative state. His Lindy would be his decision maker and his second decision maker is his son Jose. We also filled out his [place] DNR forms and they will be scanned into the chart. He has been given copies. I spent greater than 16 minutes discussing the above. Thyroid: - he was previously on amiodarone but it was stopped - TSH elevated, T4 normal - no constipation or other symptoms - he continues to have good energy to golf and do his regular activities - he has never had colon cancer screening Patient Care Team: Jessica Funk MD as PCP - General (Family Medicine) Review of Systems Objective Vitals: BP 136/62 Pulse 64 Ht 1.702 m (5' 7") Wt 91.2 kg (201 lb 1.6 oz) SpO2 97% BMI 31.50 kg/m Physical Exam Vitals and nursing note reviewed. Constitutional: General: He is not in acute distress. Appearance: He is not ill-appearing. HENT: Head: Normocephalic and atraumatic. Mouth/Throat: Mouth: Mucous membranes are moist. Eyes: General: No scleral icterus. Right eye: No discharge. Left eye: No discharge. Extraocular Movements: Extraocular movements intact. Conjunctiva/sclera: Conjunctivae normal. Cardiovascular: Rate and Rhythm: Normal rate and regular rhythm. Pulmonary: Effort: Pulmonary effort is normal. No respiratory distress. Breath sounds: Normal breath sounds. Skin: General: Skin is dry. Neurological: General: No focal deficit present. Mental Status: He is alert and oriented to person, place, and time. Psychiatric: Thought Content: Thought content normal. Judgment: Judgment normal. Assessment/Plan Problem List Items Addressed This Visit Atrial fibrillation (Multi) Overview He is established with a network patient with the cardiology group. Relevant Orders Comprehensive metabolic panel Comprehensive metabolic panel Subclinical hypothyroidism Overview Elevated TSH on 4 draws with normal T4. Current Assessment & Plan - Chronic problem, unresolved, new to this provider, requires further workup and treatment - Discussed with pt that we should start low dose thyroid replacement due to his age and elevated TSH - levothyroxine 50mcg daily - recheck TSH in 6 weeks Relevant Medications levothyroxine (Synthroid, Levoxyl) 50 mcg tablet Other Relevant Orders TSH TSH Stage 3b chronic kidney disease (Multi) Current Assessment & Plan - Chronic problem, unresolved, new to this provider, requires further workup and treatment - Discussed with pt to avoid NSAIds, improve hydration - continue to monitor Other Visit Diagnoses Routine general medical examination at health care facility - Primary Screen for colon cancer Relevant Orders Cologuard colon cancer screening Need for vaccination Relevant Orders Pneumococcal conjugate vaccine 20-valent IM (Completed) Hyperlipidemia, unspecified hyperlipidemia type Relevant Orders Lipid panel Anemia, unspecified type Relevant Orders CBC and Auto Differential Advanced care planning/counseling discussion Relevant Orders DNR (Patient allows mechanical ventilation) (Completed) Jessica Funk MD documented in this encounter [facility] Work Phone: 03-15-2024 Instructions Jessica Funk MD - 03/15/2024 8:00 AM EDT I would recommend getting your shingles vaccine at the pharmacy. You get one now and one in 2-6 months. About 30% of people will feel unwell after the shot so I recommend getting it done on a day that you do not have important plans the next day. You should get your RSV vaccine You should get your tetanus vaccine. documented in this encounter [facility] Work Phone: 02-02-2024 Evaluation + Plan note Associated Problem(s): Sun-damaged skin - Chronic problem, unresolved, new to this provider, requires further workup and treatment - Discussed with pt that an evaluation with dermatology could be recommended but he would rather stick in our office. I did do a skin evaluation today which was significant for multiple seborrheic keratoses and age spots but did not appreciate any lesions that I felt warranted biopsy [facility] Work Phone: 02-02-2024 Miscellaneous Notes Associated Problem(s): Sun-damaged skin - Chronic problem, unresolved, new to this provider, requires further workup and treatment - Discussed with pt that an evaluation with dermatology could be recommended but he would rather stick in our office. I did do a skin evaluation today which was significant for multiple seborrheic keratoses and age spots but did not appreciate any lesions that I felt warranted biopsy Associated Problem(s): Atrial fibrillation (Multi) - Chronic problem, unresolved, new to this provider, requires further workup and treatment - Discussed with pt that we will request records from his cardiology group as well as his previous primary care doctor to evaluate why he was told to stop his amiodarone and what may be going on. Additionally may consider further evaluation depending on results documented in this encounter [facility] Work Phone: 02-02-2024 Evaluation + Plan note Associated Problem(s): Atrial fibrillation (Multi) - Chronic problem, unresolved, new to this provider, requires further workup and treatment - Discussed with pt that we will request records from his cardiology group as well as his previous primary care doctor to evaluate why he was told to stop his amiodarone and what may be going on. Additionally may consider further evaluation depending on results [facility] Work Phone: 02-02-2024 History of Present illness Narrative Subjective: Magali Ramos is a 78 y.o. male who presents to clinic today for Establish Care Patient was previously seen by Dr. Acosta who has left town. He is here to establish care. He last saw Dr. Acosta 1 year ago He follows with [facility] for cardiology He has been having his amiodarone monitored there and was recently stopped He still takes crestor 5mg and xarelto 20mg daily, he is not entirely sure why he takes this He notes that he has been healthy his whole life and didn't miss any work in 55 years Review of Systems Assessment/Plan: Magali Ramos is a 78 y.o. male with a history of atrial fibrillation who presents to clinic today to address the following issues: 1. Longstanding persistent atrial fibrillation (Multi) 2. Sun-damaged skin Problem List Items Addressed This Visit Atrial fibrillation (Multi) - Primary Overview He is established with a network patient with the cardiology group. Current Assessment & Plan - Chronic problem, unresolved, new to this provider, requires further workup and treatment - Discussed with pt that we will request records from his cardiology group as well as his previous primary care doctor to evaluate why he was told to stop his amiodarone and what may be going on. Additionally may consider further evaluation depending on results Sun-damaged skin Overview Many many years of outdoor sports as well as 3 days a week of golfing at his current age Current Assessment & Plan - Chronic problem, unresolved, new to this provider, requires further workup and treatment - Discussed with pt that an evaluation with dermatology could be recommended but he would rather stick in our office. I did do a skin evaluation today which was significant for multiple seborrheic keratoses and age spots but did not appreciate any lesions that I felt warranted biopsy There are no Patient Instructions on file for this visit. Follow up: 6 to 8 weeks for Medicare wellness as well as to review records Return precautions discussed. An After Visit Summary was given to the patient. All questions were answered and patient in agreement with plan. Objective: BP 140/68 Pulse 53 Ht 1.702 m (5' 7") Wt 90.4 kg (199 lb 5.4 oz) SpO2 97% BMI 31.22 kg/m Physical Exam Vitals and nursing note reviewed. Constitutional: General: He is not in acute distress. Appearance: He is not ill-appearing. HENT: Head: Normocephalic and atraumatic. Mouth/Throat: Mouth: Mucous membranes are moist. Eyes: General: No scleral icterus. Right eye: No discharge. Left eye: No discharge. Extraocular Movements: Extraocular movements intact. Conjunctiva/sclera: Conjunctivae normal. Cardiovascular: Rate and Rhythm: Normal rate. Rhythm irregular. Pulmonary: Effort: Pulmonary effort is normal. No respiratory distress. Breath sounds: Normal breath sounds. Skin: General: Skin is dry. Comments: Significantly tanned skin as well as recent sunburn, multiple seborrheic keratoses and dark age spots Neurological: General: No focal deficit present. Mental Status: He is alert and oriented to person, place, and time. Psychiatric: Thought Content: Thought content normal. Judgment: Judgment normal. I spent 21 minutes in total time for this visit including all related clinical activities before, during, and after the visit excluding other billable activities/procedure time. 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 Paroxysmal atrial fibrillation [facility] Work Phone: Evaluation note* Diagnosis Routine general medical examination at health care facility- Primary Routine general medical examination at a health care facility Screen for colon cancer Special screening for malignant neoplasms, colon Need for vaccination Need for prophylactic vaccination and inoculation against unspecified single disease Subclinical hypothyroidism Other specified acquired hypothyroidism Longstanding persistent atrial fibrillation (Multi) Hyperlipidemia, unspecified hyperlipidemia type Anemia, unspecified type Advanced care planning/counseling discussion Stage 3b chronic kidney disease (Multi) documented in this encounter [facility] Work Phone: Evaluation note* Diagnosis Combined forms of age-related cataract, bilateral- Primary Vitreous floaters of both eyes Posterior vitreous detachment of right eye Vitreous degeneration [facility] Combined form of age-related cataract, left eye- Primary Combined form of age-related cataract, right eye Pupillary miosis Miosis (persistent), 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 Atrial fibrillation, unspecified type (HCC) Hypothyroidism, unspecified type [facility] Combined form of age-related cataract, left eye- Primary Combined form of age-related cataract, right eye Pupillary miosis Miosis (persistent), 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 Atrial fibrillation, unspecified type (HCC) Hypothyroidism, unspecified type [facility] Combined forms of age-related cataract of left eye- Primary Other and combined forms of senile cataract Combined forms of age-related cataract of left eye Other and combined forms of senile cataract [facility] Diagnosis Combined forms of age-related cataract of left eye Other and combined forms of senile cataract [facility] Diagnosis Combined forms of age-related cataract of right eye- Primary Other and combined forms of senile cataract Status post cataract extraction and insertion of intraocular lens of left eye [facility] Diagnosis Combined forms of age-related cataract of right eye- Primary Other and combined forms of senile cataract Status post cataract extraction and insertion of intraocular lens of left eye [facility] Diagnosis Status post cataract extraction and insertion of intraocular lens of left eye- Primary [facility] Diagnosis Status post cataract extraction and insertion of intraocular lens of left eye- Primary [facility] Diagnosis Combined forms of age-related cataract of right eye- Primary Other and combined forms of senile cataract Status post cataract extraction and insertion of intraocular lens of left eye [facility] Diagnosis Status post cataract extraction and insertion of intraocular lens of left eye- Primary 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 Regular astigmatism of both eyes Regular astigmatism [facility] Longstanding persistent atrial fibrillation (Multi)- Primary Sun-damaged skin Other chronic dermatitis due to solar radiation Routine general medical examination at health care facility- Primary Routine general medical examination at a health care facility Screen for colon cancer Special screening for malignant neoplasms, colon Need for vaccination Need for prophylactic vaccination and inoculation against unspecified single disease Subclinical hypothyroidism Other specified acquired hypothyroidism Longstanding persistent atrial fibrillation (Multi) Hyperlipidemia, unspecified hyperlipidemia type Anemia, unspecified type Advanced care planning/counseling discussion Stage 3b chronic kidney disease (Multi) Routine general medical examination at a health care facility- Primary Advanced care planning/counseling discussion Screening for alcohol problem Screening for alcoholism Stage 3b chronic kidney disease (Multi) Subclinical hypothyroidism Other specified acquired hypothyroidism Longstanding persistent atrial fibrillation (Multi) documented in this encounter [facility] Work Phone: Evaluation note* Diagnosis Status post cataract extraction and insertion of intraocular lens of left eye- Primary Combined forms of age-related cataract of right eye Other and combined forms of senile cataract documented in this encounter [facility] for referral (narrative)* Consultation (Routine) - Authorized Specialty Diagnoses / Procedures Referred By Bolivar estevez Referred To Contact Primary Care Procedures Follow Up In Primary Care - Medicare Annual Jessica Funk MD [address] [place] [address] Referral ID Status Reason Start Date Expiration Date V isits Requested Visits Authorized [id number] Authorized 02/02/2024 02/01/2025 1 1 [facility] Work Phone: Summary Purpose Family History No Family History Records Found Relationship Condition Age at Onset Recorded Date/T hans mother Coronary artery disease Unknown Sudden cardiac Unknown Advance Directives No Advanced Directives Records Found Advance Directive Response Recorded Date/ Time Advance Directives No December 15 10:39am Living Will No August 22 11:05am Power of Supervisor Sewer System No August 22, 2020 11:05am Advance Directive Response Recorded Date/ Time Advance Directives No December 15 11:39am Living Will No August 22 12:05pm Power of Supervisor Sewer System No August 22, 2020 12:05pm Date Activated Date Inactivated Comments 03/15/2024 8:48 AM Question Answer Comments Plan of Care: Code Status Discussion Completed Decision Maker: Patient Chief Complaint and Reason for Visit Chief Complaint 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 Reason for Visit Essential hypertensi on Hyperlipidemia prison current use of amiodarone Paroxysmal atrial fibrillation Chief Complaint 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 Reason for Visit Essential hypertensi on Hyperlipidemia prison current use of amiodarone Paroxysmal atrial fibrillation Chief Complaint 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 PENITENTIARY DRUG THERAPY E-ORDER Reason for Visit Essential hypertensi on Hyperlipidemia prison current use of amiodarone Paroxysmal atrial fibrillation Additional Source Comments (unrecognized sect ion and content) No Status Records FoundNo Status Records FoundNo Status Records FoundNo Status Records FoundNo Status Records FoundNo Status Records FoundNo Status Records FoundNo Status Records FoundNo Status Records Found INFORMATION SOURCE (unrecogn ized section and content) DATE CREATED AUTHOR 01/07/2019 [facility] ([place]) DATE CREATED AUTHOR AUTHOR'S ORGANIZ ATION 01/13/2019 [facility] DATE CREATED AUTHOR AUTHOR'S ORGANIZ ATION 03/23/2019 [facility] DATE CREATED AUTHOR AUTHOR'S ORGANIZ ATION 05/01/2024 [facility] DATE CREATED AUTHOR AUTHOR'S ORGANIZ ATION 12/01/2024 [facility] DATE CREATED AUTHOR AUTHOR'S ORGANIZ ATION 12/03/2024 [facility] DATE CREATED AUTHOR AUTHOR'S ORGANIZ ATION 03/22/2025 [facility] DATE CREATED AUTHOR AUTHOR'S ORGANIZ ATION 03/25/2025 [facility] DATE CREATED AUTHOR AUTHOR'S ORGANIZ ATION 08/15/2025 [facility] Care Teams (unrecognized sec tion and content) Team Status: Active Member Role Status Dates Dr. Rosibel Wick MD Family Provider Active Dr. Rosibel Acosta MD Primary Care Provider Active Team Status: Inactive Member Role Status Dates Dr. Rosibel Acosta MD Primary Care Provider, [facility] Provider Active Shana Nichols ENERGY TRADING ANALYST, ENERGY TRADING ANALYST-C Attending Provider Active Team Status: Inactive Member Role Status Dates Dr. Rosibel Acosta MD Primary Care Provider Active Shana Nichols NP, ENERGY TRADING ANALYST-C Attending Provider, Referring Catalino melendez Active Team Status: Active Member Role Status Dates Dr. Rosibel Acosta MD Primary Care Provider Active Shana Nichols NP, ENERGY TRADING ANALYST-C Attending Provider, Referring P rovider Active Team Status: Active Member Role Status Dates Dr. Rosibel Acosta MD Primary Care Provider Active Shana Nichols ENERGY TRADING ANALYST, ENERGY TRADING ANALYST-C Referring Provider, Other Provi katya Active Dr. Leonidas Matos DO Attending Provider Active Team Status: Active Member Role Status Dates Dr. Rosibel Wick MD Family Provider Active No Primary Care Physician Primary Care Provider Active Team Status: Inactive Member Role Status Dates No Primary Care Physician Primary Care Provider Active Shana Nichols ENERGY TRADING ANALYST, ENERGY TRADING ANALYST-C Attending Provider, Referring P rovikatya Active Fruit Thinner Machine Operator Relationship Specialty Start Date End Date Jessica Funk MD [address] [place] [address] PCP - General Family Medicine 02/02/24 Fruit Thinner Machine Operator Relationship Specialty Start Date End Date Jessica Funk MD [address] [place] [address] PCP - General Family Medicine 02/02/24 Fruit Thinner Machine Operator Relationship Specialty Start Date End Date Jessica Funk MD [address] [place] [address] PCP - General Family Medicine 10/25/24 Fruit Thinner Machine Operator Relationship Specialty Start Date End Date Jessica Funk MD [address] [facility] [place] [address] PCP - General Family Medicine 10/25/24 Fruit Thinner Machine Operator Relationship Specialty Start Date End Date Jessica Funk MD [address] [place] [address] PCP - General Family Medicine 10/25/24 Fruit Thinner Machine Operator Relationship Specialty Start Date End Date Jessica Funk MD [address] [address] PCP - General Family Medicine 10/25/24 Fruit Thinner Machine Operator Relationship Specialty Start Date End Date Jessica Funk MD [address] [place] [address] PCP - General Family Medicine 10/25/24 Fruit Thinner Machine Operator Relationship Specialty Start Date End Date Jessica Funk MD [address] [id number] PCP - General Family Medicine 10/25/24 Fruit Thinner Machine Operator Relationship Specialty Start Date End Date Jessica Funk MD [address] [id number] PCP - General Family Medicine 10/25/24 Fruit Thinner Machine Operator Relationship Specialty Start Date End Date Jessica Funk MD [address] [place] [address] PCP - General Family Medicine 02/02/24 Fruit Thinner Machine Operator Relationship Specialty Start Date End Date Jessica Funk MD [address] [place] [address] PCP - General Family Medicine 10/25/24 Goals (unrecognized section and content) Goals may be documented in a n alternate sectionGoals may be documented in an alternate sectionGoals may be documented in an alternate section Reason for Visit (unrecogniz ed section and content) Reason Comments Establish Care Reason Comments Medicare Annual Wellness Visit Subsequen t Specialty Diagnoses / Procedures Referred By Conthalle t Referred To Contact Primary Care Procedures Follow Up In Primary Care - Medicare Annual Jessica Funk MD [address] [phone] Referral ID Status Reason Start Date Expiration Date V isits Requested Visits Authorized [id number] Authorized 02/02/2024 02/01/2025 1 1 Reason Comments Cataract Evaluation Reason Comments Blurred Vision Both Eyes Left eye worse than right eye for 6 months Difficulty Reading Both Eyes Left eye wo rse than right eye for 6 months Reason Comments Blurred Vision Both Eyes Difficulty Reading Both Eyes Glare Both eyes Reason Comments Post-op Cataract OS Status Post Cataract Surgery with Monofocal Intraocular lens Implant Left Eye (11/29/2024) Blurred Vision Right Eye Difficulty Reading Right Eye Glare Right Eye Reason Comments Post-op Cataract OS Status Post Cataract Surgery with Monofocal Intraocular Lens Implant Left Eye (11/29/2024) Reason Comments Post-op Cataract Left Eye (11/29/2024 ) Reason Comments Post-op (Ophthalmology) Left Eye Catarac t surgery 11/29/2024 OS Reason Comments Status post cataract surgery with IOL le ft eye Blurred Vision Right Eye Reason Comments Post-op Cataract Left eye- 11/29/2024 Reason Comments Post-op (Ophthalmology) Left Eye S/P Cat aract surgery with IOL left eye done on 11/29/24 Source Comments (unrecognize d section and content) In the event this informatio n is protected by the Federal Confidentiality of Alcohol and Drug Abuse Patient Records regulations: The Federal rules restrict any use of the information to criminally investigate or prosecute any alcohol or drug abuse patient.[facility] the event this information is protected by the Federal Confidentiality of Alcohol and Drug Abuse Patient Records regulations: The Federal rules restrict any use of the information to criminally investigate or prosecute any alcohol or drug abuse patient.[facility] the event this information is protected by the Federal Confidentiality of Alcohol and Drug Abuse Patient Records regulations: The Federal rules restrict any use of the information to criminally investigate or prosecute any alcohol or drug abuse patient.[facility] HospitalIn the event this information is protected by the Federal Confidentiality of Alcohol and Drug Abuse Patient Records regulations: The Federal rules restrict any use of the information to criminally investigate or prosecute any alcohol or drug abuse patient.[facility] HospitalIn the event this information is protected by the Federal Confidentiality of Alcohol and Drug Abuse Patient Records regulations: The Federal rules restrict any use of the information to criminally investigate or prosecute any alcohol or drug abuse patient.[facility] HospitalIn the event this information is protected by the Federal Confidentiality of Alcohol and Drug Abuse Patient Records regulations: The Federal rules restrict any use of the information to criminally investigate or prosecute any alcohol or drug abuse patient.[facility] HospitalIn the event this information is protected by the Federal Confidentiality of Alcohol and Drug Abuse Patient Records regulations: The Federal rules restrict any use of the information to criminally investigate or prosecute any alcohol or drug abuse patient.[facility] HospitalIn the event this information is protected by the Federal Confidentiality of Alcohol and Drug Abuse Patient Records regulations: The Federal rules restrict any use of the information to criminally investigate or prosecute any alcohol or drug abuse patient.[facility] HospitalIn the event this information is protected by the Federal Confidentiality of Alcohol and Drug Abuse Patient Records regulations: The Federal rules restrict any use of the information to criminally investigate or prosecute any alcohol or drug abuse patient.[facility] HospitalIn the event this information is protected by the Federal Confidentiality of Alcohol and Drug Abuse Patient Records regulations: The Federal rules restrict any use of the information to criminally investigate or prosecute any alcohol or drug abuse patient.[facility] HospitalIn the event this information is protected by the Federal Confidentiality of Alcohol and Drug Abuse Patient Records regulations: The Federal rules restrict any use of the information to criminally investigate or prosecute any alcohol or drug abuse patient.[facility] HospitalIn the event this information is protected by the Federal Confidentiality of Alcohol and Drug Abuse Patient Records regulations: The Federal rules restrict any use of the information to criminally investigate or prosecute any alcohol or drug abuse patient.[facility] HospitalIn the event this information is protected by the Federal Confidentiality of Alcohol and Drug Abuse Patient Records regulations: The Federal rules restrict any use of the information to criminally investigate or prosecute any alcohol or drug abuse patient.[facility] Scheduled Active and Recently Administ ered Medications (unrecognized section and content) Medication Order 11/27/2024 11/28/2024 11/29/2024 cyclopentolate 1%-tropicamide 1%-PHENYLephrine 2.5% ophthalmic drops (COMPLETED) 1 Drop, LEFT EYE, EVERY 5 MINUTES, 3 doses, First dose on Thu11/29/24 at 1230, Last dose on Thu11/29/24 at 1240, For Topical Ophthalmic Use Only, Preprocedure 1219 (Given - Provid er: Maddison Hall RN - Comment: by Rocky Peña Rn)1225 (Given - Provider: Maddison Hall RN)1234 (Given - Provider: Maddison Hall RN) tetracaine (PF) 0.5 % 1 Drop (OPTICAINE) (COMPLETED) 1 Drop, LEFT EYE, ONCE, 1 dose, On 11/29/24 at 1230, for the eye, Preprocedure 1219 (Given - Provid er: Maddison Hall RN - Comment: per Delmer Hale) PRN Medication Order 11/27/2024 11/28/2024 11/29/2024 balanced salt (BSS) (CANCELED) X (OR/PROCEDURE) PRN, Starting on 11/29/24 at 1324, Until 11/29/24 at 1345, Intraprocedure 1324 (Given - Provid er: Brian Griffith MD) balanced salt (BSS) (CANCELED) X (OR/PROCEDURE) PRN, Starting on 11/29/24 at 1342, Until 11/29/24 at 1345, Intraprocedure 1342 (Given - Provid er: rBian Griffith MD) chondroitin-sodium hyaluronate 4-3 % (40-30 mg/mL) intraocular injection (VISCOAT) (CANCELED) X (OR/PROCEDURE) PRN, Starting on 11/29/24 at 1323, Until Tue 2/25 at 1345, Intraprocedure 1323 (Given - Provid er: Brian Griffith MD) lidocaine 1%-PHENYLephrine 1.5% intraocular injection (CANCELED) X (OR/PROCEDURE) PRN, Starting on 11/29/24 at 1323, Until Tue 2/25 at 1345, Intraprocedure 1323 (Given - Provid er: Brian Griffith MD) moxifloxacin intraocular injection 5 mg/mL (PF) (CANCELED) X (OR/PROCEDURE) PRN, Starting on 11/29/24 at 1342, Until Tue 25 at 1345, Intraprocedure 1342 (Given - Provid er: Brian Griffith MD) Povidone-Iodine 5 % ophth soln (BETADINE) (CANCELED) X (OR/PROCEDURE) PRN, Starting on Thu11/29/24 at 1319, Until Thu11/29/24 at 1345, Intraprocedure 1319 (Given - Provid er: Latisha Mar RN) sodium hyaluronate 10 mg/mL injection (CANCELED) X (OR/PROCEDURE) PRN, Starting on Thu11/29/24 at 1323, Until Thu11/29/24 at 1345, Intraprocedure 1323 (Given - Provid er: Brian Griffith MD) FOR RECORDS PERTAINING TO PATIENTS WHO ARE [...] BE BASED ON THE PRIMARY CLINICAL RECORDS. [facility]. provides no warranty or guarantee of the accuracy or completeness of information in this document.
[2025-08-19 16:00] LABS: Hematocrit 39.7 % (40-54); Hemoglobin 12.8 g/dL (13.0-16.5); Immature Granulocytes Count 0.040 X10^3/uL (0.0-0.0); Mean Corp Hgb Conc 32.2 g/dL (32-36); Mean Corpuscular Volume 96.6 fL (80-94); Mean Platelet Vol. 9.9 fl (6.2-12.0); NRBC Flagged by Analyzer 0 % (0-5); POSITIVE DIFFERENTIAL YES; Platelet Count 201 K/mm3 (150-450); RBC Distribution Width CV 13.5 % (11.6-14.6); RBC Distribution Width SD 48.0 fl (35.1-43.9); Red Blood Count 4.11 M/mm3 (4.6-6.2); White Blood Count 8.3 K/mm3 (4.4-11.0)
[2025-08-19 16:11] LABS: Prothrombin Time (Protime)PT. 27.6 SECONDS (11.7-14.9)
[2025-08-19 16:12] LABS: Partial Thromboplast Time 34.9 Seconds (24.1-36.2)
[2025-08-19 16:14] LABS: Anion Gap 12 (5-15); BUN 30 mg/dL (4-19); BUN/Creat Ratio 23.5 RATIO (10-20); Calcium,Total 8.8 mg/dL (7.6-11.0); Carbon Dioxide 20.8 mmol/L (21.0-32.0); Chloride 102 mmol/L (98-108); Glucose 152 mg/dL (70-99); Potassium 4.2 mmol/L (3.3-5.1); Troponin T High Sensitivity 16 ng/L (<=22)
--- NOTE | 2025-08-19 16:37 | RAD_ITS ---
PROCEDURE: CHEST PA AND LATERAL 08/19/2025 REASON FOR EXAM: DIZZINESS TECHNIQUE: Procedure Code: RADCXR Modality: DX Procedure: CHEST PA AND LATERAL COMPARISON: 10/14/2019 FINDINGS: Hardware: None. Heart: The heart size is normal. Mediastinum: The mediastinal contour is unremarkable. Lungs: Stable 8 mm round density in the periphery of the left lung base. No pneumothorax or pleural effusion. Bones: The bones are unremarkable. RAD/Chest PA and Lateral IMPRESSION: NO ACUTE FINDINGS. Reading [facility]
[2025-08-19 17:18] LABS: Mucous, Urine 0 SEEN /hpf (<or=2+)
[2025-08-19 17:20] LABS: Color, Urine Yellow (Yellow); Glucose, Dipstick Normal (Normal); Ketone-Dipstick Negative (Negative); Leukocyte Esterase-Dipstick 25 /ul (Negative); Nitrite-Dipstick Negative (Negative); Occult Blood-Urine 150 /ul (Negative); Protein-Dipstick 15 mg/dl (Negative); Specific Gravity, Urine 1.020 (1.002-1.030); Urine Bilirubin Dipstick Negative (Negative)
[2025-08-19] MEDS: 0.9% Normal Saline (1000mL) 1,000 ML 1000 ML IV (17:51)
[2025-08-19 17:58] LABS: Squamous Epithelial Cells - UA 0-5 SEEN /hpf (0-5)
[2025-08-19 17:59] LABS: Red Blood Cells-Urine 5-10 SEEN /hpf (0-5)
[2025-08-19 18:50] LABS: Troponin T High Sens 2 HR 15 ng/L (<=22)
== END 2025-08-19 19:55 | disposition home or self-care (01) ==
PROVIDERS: Emergency Provider Emergency Medicine; PCP Family Medicine; Visit Provider Emergency Medicine
DX: R42 Dizziness and giddiness (principal); I48.91 Unspecified atrial fibrillation; I10 Essential (primary) hypertension
CPT/HCPCS: 70450; 71046; 80048; 81001; 84484; 85025; 85610; 85730; 93005; 96360; 96361; 99285; A4216

== ENCOUNTER → 2025-09-14 | Outpatient (CLI) | payer MEDICARE, OTHER, SELFPAY ==
--- NOTE | 2025-09-14 08:51 | CDU_ITS ---
Reason For Study Reason For Study: Dizziness Rt. Velocities/BP Lt. Velocities/BP Prox CCA 94.9/31.1 cm/sec. Prox CCA 44.7/12.1 cm/sec. Mid CCA 79.5/20.1 cm/sec. Mid CCA 80.7/22.7 cm/sec. Dist CCA 64.1/21.2 cm/sec. Dist CCA 61.1/18.0 cm/sec. Prox ICA 64.1/22.3 cm/sec. Prox ICA 50.8/19.9 cm/sec. Mid ICA 70.7/28.9 cm/sec. Mid ICA 53.6/21.8 cm/sec. Dist ICA 41.5/16.8 cm/sec. Dist ICA 48.7/16.8 cm/sec. Rt. ICA/CCA = 0.9. Lt. ICA/CCA = 0.7. Prox ECA 82.8/16.8 cm/sec. Prox ECA 72.3/17.1 cm/sec. Rt. Vert. 38.6/16.0 cm/sec. Lt. Vert. 52.2/16.3 cm/sec. Right Extracranial There is homogeneous, smooth atherosclerotic plaque noted in the right common carotid artery. There is heterogeneous, irregular atherosclerotic plaque noted in the right internal carotid artery. There is intimal thickening but no significant atherosclerotic plaque noted in the right external carotid artery. Antegrade flow is noted in the right vertebral artery. Left Extracranial There is intimal thickening but no significant atherosclerotic plaque noted in the left common carotid artery. There is heterogeneous, irregular atherosclerotic plaque noted in the left internal carotid artery. There is intimal thickening but no significant atherosclerotic plaque noted in the left external carotid artery. Antegrade flow is noted in the left vertebral artery. Procedure Carotid Duplex 23215. This is a Carotid Duplex examination using B-mode, color flow and specral Doppler. Exam performed in department. VL/Carotid Duplex Ultrasound Interpretation Summary Mild (<50%) stenosis right extracranial internal carotid. Mild (<50%) stenosis left extracranial internal carotid. Patent and antegrade vertebrals bilaterally. Ordering Physician: Shana Nichols Referring Physician: Shana Nichols Performed By: Joyce Villatoro RVT
== END | disposition home or self-care (01) ==
LOC: CVS 08:50
PROVIDERS: PCP Family Medicine; Referring Provider Nurse Practitioner Gerontology; Visit Provider Nurse Practitioner Gerontology
DX: R42 Dizziness and giddiness (principal); I48.0 Paroxysmal atrial fibrillation
CPT/HCPCS: 93225; 93226; 93880